=== PATIENT | female | born 1940 | race Caucasian/White ===

== ENCOUNTER 2017-09-26 21:29 | Emergency (ER) | payer MEDICARE ==
[2017-09-26] MEDS ORDERED: SODIUM CHLORIDE 0.9% 500 ML IV ONE (21:41)
[2017-09-26] MEDS ORDERED: ALPRAZolam 0.25 MG TAB PO STA ×2 (21:44→23:31)
--- NOTE | 2017-09-26 21:49 | ED ---
General Adult HPI - General Chief complaint: Psychiatric Symptoms Stated complaint: Anxiety Poss UTI Time Seen by Provider: 09/26/17 21:30 Source: EMS, RN notes reviewed Mode of arrival: EMS Limitations: altered mental status - History of Present Illness Initial comments: This is a 77-year-old female who was sent to us via EMS for anxiety and a UTI. Patient is unable to give any history because she is somewhat altered however we don't know what her baseline is. Patient denies any pain patient denies any discomfort patient does not know why she is here. She does seem extremely anxious however. Patient states she's not nauseated doesn't believe she's been having any diarrhea. Patient denies any recent injury. Family may be coming and will get some more history from them when they arrived. - Related Data Allergies Allergy/AdvReac Type Severity Reaction Status Date / Time lorazepam Allergy Unknown Verified 09/26/17 21:41 Review of Systems ROS Statement: Those systems with pertinent positive or pertinent negative responses have been documented in the HPI. ROS Other: All systems not noted in ROS Statement are negative. Past Medical History Past Medical History: GERD/Reflux Past Psychological History: Anxiety General Exam - General Exam Comments Initial Comments: GENERAL: Patient is well-developed and well-nourished. Patient is nontoxic and well- hydrated and is in mild distress. ENT: Neck is soft and supple. No significant lymphadenopathy is noted. Oropharynx is clear. Moist mucous membranes. Neck has full range of motion without eliciting any pain. EYES: The sclera were anicteric and conjunctiva were pink and moist. Extraocular movements were intact and pupils were equal round and reactive to light. Eyelids were unremarkable. PULMONARY: Unlabored respirations. Good breath sounds bilaterally. No audible rales rhonchi or wheezing was noted. CARDIOVASCULAR: There is a regular rate and rhythm without any murmurs gallops or rubs. ABDOMEN: Soft and nontender with normal bowel sounds. No palpable organomegaly was noted. There is no palpable pulsatile mass. SKIN: Skin is clear with no lesions or rashes and otherwise unremarkable. NEUROLOGIC: Patient is alert and oriented x3. Cranial nerves II through XII are grossly intact. Motor and sensory are also intact. Normal speech, volume and content. Symmetrical smile. MUSCULOSKELETAL: Normal extremities with adequate strength and full range of motion. No lower extremity swelling or edema. No calf tenderness. LYMPHATICS: No significant lymphadenopathy is noted PSYCHIATRIC: Patient is extremely nervous and she admits is much. Patient states she doesn' t know why she somewhat nervous Limitations: altered mental status Course Vital Signs 09/26/17 21:32 Pulse Rate 109 H Respiratory 36 H Rate Blood Pressure 134/72 O2 Sat by Pulse 92 L Oximetry Medical Decision Making - Medical Decision Making EKG shows sinus rhythm at 71 bpm NE interval 224 QRS is 80 QT interval 4:30 QTC is 467. Patient's EKG shows no ST segment elevation or depression or T wave abnormalities are noted. - Lab Data Result diagrams: 09/26/17 22:35 09/26/17 22:35 Lab Results 09/26/17 09/26/17 09/26/17 Range/Units 22:35 22:35 22:35 WBC 11.3 H (3.8-10.6) k/uL RBC 4.47 (3.80-5.40) m/uL Hgb 13.0 (11.4-16.0) gm/dL Hct 39.0 (34.0-46.0) % MCV 87.3 (80.0-100.0) fL MCH 29.0 (25.0-35.0) pg MCHC 33.2 (31.0-37.0) g/dL RDW 13.3 (11.5-15.5) % Plt Count 370 (150-450) k/uL Neutrophils % 70 % Lymphocytes % 21 % Monocytes % 5 % Eosinophils % 1 % Basophils % 0 % Neutrophils # 7.9 H (1.3-7.7) k/uL Lymphocytes # 2.4 (1.0-4.8) k/uL Monocytes # 0.6 (0-1.0) k/uL Eosinophils # 0.1 (0-0.7) k/uL Basophils # 0.1 (0-0.2) k/uL PT (9.0-12.0) sec INR (<1.2) APTT (22.0-30.0) sec Sodium 139 (137-145) mmol/L Potassium 4.7 (3.5-5.1) mmol/L Chloride 105 (98-107) mmol/L Carbon Dioxide 19 L (22-30) mmol/L Anion Gap 15 mmol/L BUN 23 H (7-17) mg/dL Creatinine 1.50 H (0.52-1.04) mg/dL Est GFR (CKD-EPI)AfAm 38 (>60 ml/min/1.73 sqM) Est GFR (CKD-EPI)NonAf 33 (>60 ml/min/1.73 sqM) Glucose 88 (74-99) mg/dL POC Glucose (mg/dL) (75-99) mg/dL POC Glu Operations Examiner ID Calcium 10.4 H (8.4-10.2) mg/dL Total Bilirubin 1.0 (0.2-1.3) mg/dL AST 30 (14-36) U/L ALT 32 (9-52) U/L Alkaline Phosphatase 108 (38-126) U/L Total Creatine Kinase 59 (30-135) U/L CK-MB (CK-2) 0.5 (0.0-2.4) ng/mL CK-MB (CK-2) Rel Index 0.8 Troponin I <0.012 (0.000-0.034) ng/mL Total Protein 7.5 (6.3-8.2) g/dL Albumin 4.6 (3.5-5.0) g/dL Urine Color Urine Appearance (Clear) Urine pH (5.0-8.0) Ur Specific [place] (1.001-1.035) Urine Protein (Negative) Urine Glucose (UA) (Negative) Urine Ketones (Negative) Urine Blood (Negative) Urine Nitrite (Negative) Urine Bilirubin (Negative) Urine Urobilinogen (<2.0) mg/dL Ur Leukocyte Esterase (Negative) 09/26/17 09/26/17 09/26/17 Range/Units 22:35 22:39 23:00 WBC (3.8-10.6) k/uL RBC (3.80-5.40) m/uL Hgb (11.4-16.0) gm/dL Hct (34.0-46.0) % MCV (80.0-100.0) fL MCH (25.0-35.0) pg MCHC (31.0-37.0) g/dL RDW (11.5-15.5) % Plt Count (150-450) k/uL Neutrophils % % Lymphocytes % % Monocytes % % Eosinophils % % Basophils % % Neutrophils # (1.3-7.7) k/uL Lymphocytes # (1.0-4.8) k/uL Monocytes # (0-1.0) k/uL Eosinophils # (0-0.7) k/uL Basophils # (0-0.2) k/uL PT 9.8 (9.0-12.0) sec INR 1.0 (<1.2) APTT 22.2 (22.0-30.0) sec Sodium (137-145) mmol/L Potassium (3.5-5.1) mmol/L Chloride (98-107) mmol/L Carbon Dioxide (22-30) mmol/L Anion Gap mmol/L BUN (7-17) mg/dL Creatinine (0.52-1.04) mg/dL Est GFR (CKD-EPI)AfAm (>60 ml/min/1.73 sqM) Est GFR (CKD-EPI)NonAf (>60 ml/min/1.73 sqM) Glucose (74-99) mg/dL POC Glucose (mg/dL) 101 H (75-99) mg/dL POC Glu Operations Examiner ID Whit Guan Calcium (8.4-10.2) mg/dL Total Bilirubin (0.2-1.3) mg/dL AST (14-36) U/L ALT (9-52) U/L Alkaline Phosphatase (38-126) U/L Total Creatine Kinase (30-135) U/L CK-MB (CK-2) (0.0-2.4) ng/mL CK-MB (CK-2) Rel Index Troponin I (0.000-0.034) ng/mL Total Protein (6.3-8.2) g/dL Albumin (3.5-5.0) g/dL Urine Color Yellow Urine Appearance Clear (Clear) Urine pH 8.0 (5.0-8.0) Ur Specific [place] 1.005 (1.001-1.035) Urine Protein Negative (Negative) Urine Glucose (UA) Negative (Negative) Urine Ketones 1+ H (Negative) Urine Blood Negative (Negative) Urine Nitrite Negative (Negative) Urine Bilirubin Negative (Negative) Urine Urobilinogen <2.0 (<2.0) mg/dL Ur Leukocyte Esterase Negative (Negative) Disposition Clinical Impression: Dementia Disposition: HOME SELF-CARE Condition: Good Instructions: Dementia (ED) Is patient prescribed a controlled substance at d/c from ED?: No Referrals: Adam Oakes MD [Primary Care Provider] - 1-2 days Time of Disposition: 23:30
[2017-09-26 22:46] LABS: Basophils # (A) 0.1 k/uL (0-0.2); Basophils % (A) 0 %; Eosinophils # (A) 0.1 k/uL (0-0.7); Eosinophils % (A) 1 %; Lymphocytes # (A) 2.4 k/uL (1.0-4.8); Lymphocytes % (A) 21 %; MCHC 33.2 g/dL (31.0-37.0); MCV 87.3 fL (80.0-100.0); Mean Platelet Volume 6.8; Monocytes # (A) 0.6 k/uL (0-1.0); Monocytes % (A) 5 %; Neutrophils # (A) 7.9 k/uL (1.3-7.7); Neutrophils % (A) 70 %; Platelet Count 370 k/uL (150-450); RBC 4.47 m/uL (3.80-5.40); RDW 13.3 % (11.5-15.5); WBC 11.3 k/uL (3.8-10.6)
[2017-09-26 22:49] LABS: Glucose,Whole Blood 101 mg/dL (75-99)
[2017-09-26 22:54] LABS: Partial Thromboplastin Time 22.2 sec (22.0-30.0); Prothrombin Time 9.8 sec (9.0-12.0)
[2017-09-26 23:01] LABS: Albumin 4.6 g/dL (3.5-5.0); Calcium 10.4 mg/dL (8.4-10.2); Potassium 4.7 mmol/L (3.5-5.1); Total Protein 7.5 g/dL (6.3-8.2)
[2017-09-26 23:04] LABS: Creatine Kinase 59 U/L (30-135)
[2017-09-26 23:17] LABS: Creatine Kinase MB 0.5 ng/mL (0.0-2.4); Troponin I <0.012 ng/mL (0.000-0.034)
[2017-09-26 23:20] LABS: Appearance,Urine Clear (Clear); Bilirubin,Urine Negative (Negative); Blood,Urine Negative (Negative); Color,Urine Yellow; Glucose,Urine (UA) Negative (Negative); Ketones,Urine 1+ (Negative); Leukocyte Esterase,Urine Negative (Negative); Nitrite,Urine Negative (Negative); Protein,Urine Negative (Negative); Specific Gravity,Urine 1.005 (1.001-1.035); Urobilinogen,Urine <2.0 mg/dL (<2.0)
[2017-09-26 23:41] VITALS: TEMP 97.3
[2017-09-27 00:24] VITALS: BP 157/65; PULSE 78; RESP 20
== END 2017-09-27 00:24 | disposition home or self-care (01) ==
LOC: EC 21:29
DX: F03.90 Unspecified dementia, unspecified severity, without behavioral disturbance, psychotic disturbance, mood disturbance, and anxiety (principal); F41.9 Anxiety disorder, unspecified; Z88.8 Allergy status to other drugs, medicaments and biological substances
CPT/HCPCS: 36415; 80053; 81003; 82550; 82553; 84484; 85025; 85610; 85730; 93005; 96360; 99284

== ENCOUNTER 2017-10-12 12:19 | Emergency (ER) | payer MEDICARE ==
[2017-10-12 12:34] VITALS: BP 141/63; PULSE 68; RESP 18; TEMP 97.4
[2017-10-12] MEDS ORDERED: SODIUM CHLORIDE 0.9% 1,000 ML IV ONE ×2 (12:45)
--- NOTE | 2017-10-12 12:58 | ED ---
Fall HPI - General Source: patient, RN notes reviewed, old records reviewed Mode of arrival: EMS <Claribel Palacios - Last Filed: 10/12/17 15:41> <Angus Hunt - Last Filed: 10/12/17 16:08> - General Chief Complaint: Fall Stated Complaint: Fall Time Seen by Provider: 10/12/17 12:21 - History of Present Illness Initial Comments: Patient is a 77-year-old female presents emergency department from [facility], where she was on the dementia unit. Apparently Patient was found on the ground crawling. Staff did not witness a specific fall. Patient is having severe dementia and unable to answer many questions. This time she denies any specific areas of pain. According to nursing reports they have been changing medications including her Seroquel and Ativan. Patient reports that she otherwise feels well. She does not relate that she's had her head. ( Claribel Palacios) - Related Data Allergies Allergy/AdvReac Type Severity Reaction Status Date / Time lorazepam Allergy Unknown Verified 09/26/17 21:41 Review of Systems ROS Other: All systems not noted in ROS Statement are negative. <Claribel Palacios - Last Filed: 10/12/17 15:41> ROS Other: All systems not noted in ROS Statement are negative. <Angus Hunt - Last Filed: 10/12/17 16:08> ROS Statement: Those systems with pertinent positive or pertinent negative responses have been documented in the HPI. Past Medical History Past Medical History: GERD/Reflux Past Surgical History: Cholecystectomy Past Psychological History: Anxiety Smoking Status: Never smoker Past Alcohol Use History: None Reported Past Drug Use History: None Reported <Claribel Palacios - Last Filed: 10/12/17 15:41> General Exam General appearance: alert, in no apparent distress Head exam: Present: atraumatic, normocephalic, normal inspection Eye exam: Present: normal appearance, PERRL, EOMI. Absent: scleral icterus, conjunctival injection, periorbital swelling ENT exam: Present: normal exam, mucous membranes moist Neck exam: Present: other (Patient was in a c-collar.). Absent: normal inspection, tenderness, meningismus, lymphadenopathy Respiratory exam: Present: normal lung sounds bilaterally. Absent: respiratory distress, wheezes, rales, rhonchi, stridor Cardiovascular Exam: Present: regular rate, normal rhythm, normal heart sounds. Absent: systolic murmur, diastolic murmur, rubs, gallop, clicks GI/Abdominal exam: Present: soft, normal bowel sounds. Absent: distended, tenderness, guarding, rebound, rigid Extremities exam: Present: normal inspection, full ROM, normal capillary refill. Absent: tenderness, pedal edema, joint swelling, calf tenderness Back exam: Present: normal inspection Neurological exam: Present: alert Psychiatric exam: Present: normal affect, normal mood Skin exam: Present: warm, dry, intact, normal color. Absent: rash <Claribel Palacios - Last Filed: 10/12/17 15:41> <Angus Hunt - Last Filed: 10/12/17 16:08> - General Exam Comments Initial Comments: 77-year-old female. Patient is confused. This patient's baseline. No acute distress. (Claribel Palacios) Vital Signs 10/12/17 12:28 Temperature 97.4 F L Pulse Rate 68 Respiratory 18 Rate Blood Pressure 141/63 O2 Sat by Pulse 94 L Oximetry Medical Decision Making - Lab Data Result diagrams: 10/12/17 13:05 10/12/17 13:05 - Radiology Data Radiology results: report reviewed <Claribel Palacios - Last Filed: 10/12/17 15:41> - Lab Data Result diagrams: 10/12/17 13:05 10/12/17 13:05 <Angus Hunt - Last Filed: 10/12/17 16:08> - Medical Decision Making 77-year-old female with history of dementia presents after a fall. The staff at her facility found her crawling on the ground. Did not was a fall. Patient is placed in a c-collar. CT brain and C-spine was reviewed and negative. She has no complaints of any extremity pains. Patient's labwork was reviewed and unremarkable. Creatinine does seem relatively elevated however compared to the patient's baseline to 2 weeks ago there is actually improved. Patient's urinalysis negative for infection. Patient is demented however mental status at this time is her baseline. She is able to ambulate without difficulty. Patient case also with Dr. Hunt. Will be transferred back to extended care facility with monitoring. (Claribel Palacios) Agree with clinical examination performed by physician financial sales assistant. It is a 77- year-old female who was sent in by [facility] staff for being found crawling on the ground. Vital signs upon arrival are within normal limits. Patient is pleasantly demented however answers questions appropriately. This appears to be patient's baseline. Examination is benign. No external signs of traumatic injury. Laboratory evaluation and imaging studies were reviewed by myself and found to be within normal limits. Patient does not appear dehydrated. Patient had no complaints upon reevaluation. She was ambulated with assistance to the restroom without difficulties. Patient medically cleared for discharge back to [facility] where she is provided assistance. (Angus Hunt) - Lab Data Lab Results 10/12/17 10/12/17 10/12/17 Range/Units 13:05 13:05 13:05 WBC 6.4 (3.8-10.6) k/uL RBC 4.18 (3.80-5.40) m/uL Hgb 12.2 (11.4-16.0) gm/dL Hct 37.1 (34.0-46.0) % MCV 88.7 (80.0-100.0) fL MCH 29.1 (25.0-35.0) pg MCHC 32.8 (31.0-37.0) g/dL RDW 13.3 (11.5-15.5) % Plt Count 295 (150-450) k/uL Neutrophils % 69 % Lymphocytes % 19 % Monocytes % 5 % Eosinophils % 5 % Basophils % 1 % Neutrophils # 4.4 (1.3-7.7) k/uL Lymphocytes # 1.2 (1.0-4.8) k/uL Monocytes # 0.3 (0-1.0) k/uL Eosinophils # 0.3 (0-0.7) k/uL Basophils # 0.1 (0-0.2) k/uL PT 9.8 (9.0-12.0) sec INR 1.0 (<1.2) APTT 21.2 L (22.0-30.0) sec Sodium 141 (137-145) mmol/L Potassium 4.3 (3.5-5.1) mmol/L Chloride 107 (98-107) mmol/L Carbon Dioxide 24 (22-30) mmol/L Anion Gap 10 mmol/L BUN 23 H (7-17) mg/dL Creatinine 1.27 H (0.52-1.04) mg/dL Est GFR (CKD-EPI)AfAm 47 (>60 ml/min/1.73 sqM) Est GFR (CKD-EPI)NonAf 40 (>60 ml/min/1.73 sqM) Glucose 92 (74-99) mg/dL Calcium 9.8 (8.4-10.2) mg/dL Total Bilirubin 0.7 (0.2-1.3) mg/dL AST 28 (14-36) U/L ALT 30 (9-52) U/L Alkaline Phosphatase 94 (38-126) U/L Troponin I (0.000-0.034) ng/mL Total Protein 6.6 (6.3-8.2) g/dL Albumin 3.9 (3.5-5.0) g/dL Urine Color Urine Appearance (Clear) Urine pH (5.0-8.0) Ur Specific [place] (1.001-1.035) Urine Protein (Negative) Urine Glucose (UA) (Negative) Urine Ketones (Negative) Urine Blood (Negative) Urine Nitrite (Negative) Urine Bilirubin (Negative) Urine Urobilinogen (<2.0) mg/dL Ur Leukocyte Esterase (Negative) Urine RBC (0-5) /hpf Urine WBC (0-5) /hpf Ur Squamous Epith Cells (0-4) /hpf Amorphous Sediment (None) /hpf Hyaline Casts (0-2) /lpf 10/12/17 10/12/17 Range/Units 13:05 14:15 WBC (3.8-10.6) k/uL RBC (3.80-5.40) m/uL Hgb (11.4-16.0) gm/dL Hct (34.0-46.0) % MCV (80.0-100.0) fL MCH (25.0-35.0) pg MCHC (31.0-37.0) g/dL RDW (11.5-15.5) % Plt Count (150-450) k/uL Neutrophils % % Lymphocytes % % Monocytes % % Eosinophils % % Basophils % % Neutrophils # (1.3-7.7) k/uL Lymphocytes # (1.0-4.8) k/uL Monocytes # (0-1.0) k/uL Eosinophils # (0-0.7) k/uL Basophils # (0-0.2) k/uL PT (9.0-12.0) sec INR (<1.2) APTT (22.0-30.0) sec Sodium (137-145) mmol/L Potassium (3.5-5.1) mmol/L Chloride (98-107) mmol/L Carbon Dioxide (22-30) mmol/L Anion Gap mmol/L BUN (7-17) mg/dL Creatinine (0.52-1.04) mg/dL Est GFR (CKD-EPI)AfAm (>60 ml/min/1.73 sqM) Est GFR (CKD-EPI)NonAf (>60 ml/min/1.73 sqM) Glucose (74-99) mg/dL Calcium (8.4-10.2) mg/dL Total Bilirubin (0.2-1.3) mg/dL AST (14-36) U/L ALT (9-52) U/L Alkaline Phosphatase (38-126) U/L Troponin I <0.012 (0.000-0.034) ng/mL Total Protein (6.3-8.2) g/dL Albumin (3.5-5.0) g/dL Urine Color Yellow Urine Appearance Clear (Clear) Urine pH 7.0 (5.0-8.0) Ur Specific [place] 1.006 (1.001-1.035) Urine Protein Negative (Negative) Urine Glucose (UA) Negative (Negative) Urine Ketones Trace H (Negative) Urine Blood Negative (Negative) Urine Nitrite Negative (Negative) Urine Bilirubin Negative (Negative) Urine Urobilinogen <2.0 (<2.0) mg/dL Ur Leukocyte Esterase Trace H (Negative) Urine RBC <1 (0-5) /hpf Urine WBC 2 (0-5) /hpf Ur Squamous Epith Cells 1 (0-4) /hpf Amorphous Sediment Rare H (None) /hpf Hyaline Casts 7 H (0-2) /lpf 10/12/17 14:02 EKG shows normal sinus rhythm left axis deviation. Anterior infarct injured from. Ventricular rate 62 bpm. MD intervals 04/15/2007 milliseconds. QRS duration 92 ms. QT QTc is 440/446 ms. (Claribel Palacios) - Radiology Data No acute fracture dislocation evident cervical spine. No acute intracranial hemorrhage, mass effect or midline shift seen. Acute fracture dislocation and pelvis. I asked arthritic changes of both hips osteopenia visible bony structures. Transitional lumbosacral segment. Borderline heart size of a juan pulmonary edema acute infiltrate or pneumothorax or other pleural effusion. (Claribel Palacios) Disposition Is patient prescribed a controlled substance at d/c from ED?: No When asked, does pt state using other controlled substances?: No If prescribed controlled substance>3 days was MAPS reviewed?: No If opioid is for acute pain is fill amount 7 days or less?: No If Rx opioid, was Start Talking consent form obtained?: No Time of Disposition: 15:43 <Claribel Palacios - Last Filed: 10/12/17 15:41> <Angus Hunt - Last Filed: 10/12/17 16:08> Clinical Impression: Fall, Dementia Disposition: HOME SELF-CARE Condition: Good Instructions: Fall Prevention for Older Adults (ED) Additional Instructions: Patient should be monitored. If she has any change in her baseline mental status return for further evaluation. Patient should rest, remain hydrated. There are any alarming signs or symptoms return to emergency department. Referrals: Adam Oakes MD [Primary Care Provider] - 1-2 days
[2017-10-12 13:26] LABS: Basophils # (A) 0.1 k/uL (0-0.2); Basophils % (A) 1 %; Eosinophils # (A) 0.3 k/uL (0-0.7); Eosinophils % (A) 5 %; HCT 37.1 % (34.0-46.0); HGB 12.2 gm/dL (11.4-16.0); Lymphocytes # (A) 1.2 k/uL (1.0-4.8); Lymphocytes % (A) 19 %; MCH 29.1 pg (25.0-35.0); MCHC 32.8 g/dL (31.0-37.0); MCV 88.7 fL (80.0-100.0); Mean Platelet Volume 6.4; Monocytes # (A) 0.3 k/uL (0-1.0); Monocytes % (A) 5 %; Neutrophils # (A) 4.4 k/uL (1.3-7.7); Neutrophils % (A) 69 %; Platelet Count 295 k/uL (150-450); RBC 4.18 m/uL (3.80-5.40); RDW 13.3 % (11.5-15.5); WBC 6.4 k/uL (3.8-10.6)
[2017-10-12 13:35] LABS: Albumin 3.9 g/dL (3.5-5.0); Calcium 9.8 mg/dL (8.4-10.2); Potassium 4.3 mmol/L (3.5-5.1); Total Bilirubin 0.7 mg/dL (0.2-1.3); Total Protein 6.6 g/dL (6.3-8.2)
[2017-10-12 13:41] LABS: Prothrombin Time 9.8 sec (9.0-12.0)
[2017-10-12 13:42] LABS: Partial Thromboplastin Time 21.2 sec (22.0-30.0)
--- NOTE | 2017-10-12 13:57 | CT ---
EXAMINATION TYPE: CT brain dana franklin con DATE OF EXAM: 10/12/2017 COMPARISON: NONE HISTORY: Fall CT DLP: 1815 mGycm Automated exposure control for dose reduction was used. TECHNIQUE: CT scan of the head and cervical spine are performed without contrast. FINDINGS: There is artifact which could obscure detail in the posterior fossa. There is no acute int racranial hemorrhage, mass effect, or midline shift identified. The ventricles and sulci are within normal limits in size. Periventricular white matter shows patchy low attenuation likely due to chroni c small vessel ischemia, there is likely age-related atrophy, cerebral vascular calcifications are pr esent. The globes are intact and the visualized sinuses are clear. Cervical spine is visualized in its entirety from C1 through upper thoracic levels and demonstrates s atisfactory alignment without evidence of acute fracture or dislocation. Prevertebral soft tissue ap pears within normal limits. 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 Ther e is multilevel spondylosis. Multilevel foraminal encroachment. Mild/moderate spinal stenosis. There is multilevel facet arthropathy. The C1-C2 articulation is unremarkable. IMPRESSION: 1. There is no acute fracture or dislocation evident in the cervical spine. 2. No acute intracranial hemorrhage, mass effect, or midline shift is seen.
[2017-10-12 14:32] LABS: Amorphous Sediment,Urine Rare /hpf; Appearance,Urine Clear (Clear); Bilirubin,Urine Negative (Negative); Blood,Urine Negative (Negative); Color,Urine Yellow; Glucose,Urine (UA) Negative (Negative); Hyaline Casts,Urine 7 /lpf (0-2); Ketones,Urine Trace (Negative); Leukocyte Esterase,Urine Trace (Negative); Nitrite,Urine Negative (Negative); Protein,Urine Negative (Negative); RBC,Urine <1 /hpf (0-5); Specific Gravity,Urine 1.006 (1.001-1.035); Squamous Epithelial Cell,Urine 1 /hpf (0-4); Urobilinogen,Urine <2.0 mg/dL (<2.0); WBC,Urine 2 /hpf (0-5)
--- NOTE | 2017-10-12 14:52 | XR ---
EXAMINATION TYPE: XR chest 2V DATE OF EXAM: 10/12/2017 COMPARISON: EXAMINATION TYPE: XR chest 2V DATE OF EXAM: 10/12/2017 CLINICAL HISTORY: Post fall TECHNIQUE: Frontal and lateral views of the chest are obtained. COMPARISON: None FINDINGS: There is no focal air space opacity, pleural effusion, or pneumothorax seen. The heart is borderline in size without evidence of vascular decompensation or pleural effusions. Tortuous thoraci c aorta. No pneumothorax. Scapulas are partially obscuring the upper lung wilkes. The osseous structu res are intact. IMPRESSION: Borderline size heart without evidence of juan pulmonary edema, acute infiltrate, pneumo thorax or significant pleural effusions.
--- NOTE | 2017-10-12 14:57 | XR ---
EXAMINATION TYPE: XR pelvis AP view DATE OF EXAM: 10/12/2017 CLINICAL HISTORY: Pain post fall TECHNIQUE: A single AP view of the pelvis is obtained. COMPARISON: None. FINDINGS: Mild osteopenia . There is no acute fracture/dislocation evident in the pelvis. The hip and sacroiliac joints appear symmetric with secondary osteophytic changes of both hips. The overlying soft tissue appears unrema rkable. Transitional lumbosacral . IMPRESSION: There is no acute fracture or dislocation in the pelvis. 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 Transitional lumbosacral segment.
== END 2017-10-12 17:09 | disposition home or self-care (01) ==
LOC: EC 12:19
DX: F03.90 Unspecified dementia, unspecified severity, without behavioral disturbance, psychotic disturbance, mood disturbance, and anxiety (principal); F41.9 Anxiety disorder, unspecified; Z88.8 Allergy status to other drugs, medicaments and biological substances; W19.XXXA Unspecified fall, initial encounter
CPT/HCPCS: 36415; 70450; 71046; 72125; 72170; 80053; 81001; 84484; 85025; 85610; 85730; 93005; 96360; 96361; 99285

== ENCOUNTER 2017-10-15 14:14 | Emergency (ER) | payer MEDICARE ==
--- NOTE | 2017-10-15 14:50 | ED ---
General Adult HPI <Benigno Capps - Last Filed: 10/16/17 11:42> - General Source: patient Mode of arrival: ambulatory Limitations: no limitations <Angus Hunt - Last Filed: 10/16/17 14:03> - General Chief complaint: Altered Mental Status Stated complaint: Agitation - History of Present Illness Initial comments: HPI Macro Chief Complaint: 77-year-old female brought in by EMS for aggressive behavior. History of Present Illness: 77-year-old female with past medical history of dementia presents with aggressive behavior. Patient is well-known to our emergency department for frequent visitations for similar complaints. Patient has advanced dementia. According to F staff patient has been increasingly aggressive over the past 2 weeks. They sent her here for the safety of herself and other residents in the facility. Patient has no complaints at this time however she is unreliable historian. Discussed patient case with Armando who is a nurse at the facility he reports that patient has been refusing medications. She is currently being worked up by psychiatry for aggressive behavior. She recently had increase in her Seroquel dose. Past Medical History: Anxiety, hyperlipidemia, vitamin D deficiency Past Surgical History:[reviewed, none to report] Social History: [denies alcohol, tobacco or illicit drug use] Family History: reviewed and noncontributory Patient unable to provide ROS secondary to mental status (Angus Hunt) - Related Data Home Medications Medication Instructions Recorded Confirmed ALPRAZolam [Xanax] 0.5 mg PO TID PRN 10/15/17 10/15/17 Acetaminophen [Tylenol Arthritis] 650 mg PO Q8HR PRN 10/15/17 10/15/17 Aspirin EC [Ecotrin Low Dose] 81 mg PO DAILY 10/15/17 10/15/17 Cholecalciferol [Vitamin D3] 1,000 unit PO DAILY 10/15/17 10/15/17 DULoxetine HCL [Cymbalta] 60 mg PO DAILY 10/15/17 10/15/17 Magnesium 200 mg PO DAILY 10/15/17 10/15/17 Nitrofurantoin Monohyd/M-Cryst 100 mg PO DAILY 10/15/17 10/15/17 [Macrobid] Omeprazole 20 mg PO DAILY 10/15/17 10/15/17 QUEtiapine FUMARATE 50 mg PO BID 10/15/17 10/15/17 Rosuvastatin [Crestor] 10 mg PO HS 10/15/17 10/15/17 Allergies Allergy/AdvReac Type Severity Reaction Status Date / Time lorazepam Allergy Unknown Verified 10/15/17 17:44 Review of Systems ROS Other: All systems not noted in ROS Statement are negative. <Benigno Capps - Last Filed: 10/16/17 11:42> ROS Other: All systems not noted in ROS Statement are negative. <Angus Hunt - Last Filed: 10/16/17 14:03> ROS Statement: Those systems with pertinent positive or pertinent negative responses have been documented in the HPI. Past Medical History Past Medical History: GERD/Reflux Past Surgical History: Cholecystectomy Past Psychological History: Anxiety Smoking Status: Never smoker Past Alcohol Use History: None Reported Past Drug Use History: None Reported <Angus Hunt - Last Filed: 10/16/17 14:03> General Exam <Benigno Capps - Last Filed: 10/16/17 11:42> Limitations: no limitations <Angus Hunt - Last Filed: 10/16/17 14:03> - General Exam Comments Initial Comments: Vitals: Signs upon arrival are within acceptable limits PHYSICAL EXAM: General Impression: Alert and oriented 1/3, no acute distress HEENT: Normocephalic atraumatic, extra-ocular movements intact, pupils equal and reactive to light bilaterally, mucous membranes moist. Cardiovascular: Heart regular rate and rhythm, S1&S2 audible, no murmurs, rubs or gallops Chest: Lungs clear to auscultation bilaterally, no rhonchi, no wheeze, no rales Abdomen: Bowel sounds present, abdomen soft, non-tender, non-distended, no organomegaly Musculoskeletal: Pulses present and equal in all extremities, no peripheral edema Motor: Power 5/5 bilaterally, no focal deficits noted Neurological: CN II-XII grossly intact, no focal motor or sensory deficits noted Skin: Intact with no visualized rashes Psych: Normal affect and mood (Angus Hunt) Course <Benigno Capps - Last Filed: 10/16/17 11:42> <Angus Hunt - Last Filed: 10/16/17 14:03> Vital Signs 10/15/17 10/15/17 10/15/17 14:34 16:17 19:25 Temperature 98.6 F 98.2 F 98.7 F Pulse Rate 86 81 80 Respiratory 16 16 16 Rate Blood Pressure 135/71 132/78 132/62 O2 Sat by Pulse 97 98 98 Oximetry 10/15/17 10/16/17 10/16/17 23:15 01:00 02:00 Temperature 98.6 F Pulse Rate 82 Respiratory 16 16 15 Rate Blood Pressure 136/78 O2 Sat by Pulse 98 Oximetry 10/16/17 04:00 Temperature 97.5 F L Pulse Rate 69 Respiratory 16 Rate Blood Pressure 140/63 O2 Sat by Pulse 99 Oximetry - Reevaluation(s) Reevaluation #1: 10/16/17 11:42 The patient rested comfortably throughout the evening and hay buckler. She will be transferred to [facility] for geriatric psychiatric treatment. I did fill out the transfer forms. (Benigno Capps) Medical Decision Making - Lab Data Result diagrams: 10/15/17 15:25 10/15/17 15:25 <Benigno Capps - Last Filed: 10/16/17 11:42> - Lab Data Result diagrams: 10/15/17 15:25 10/15/17 15:25 <Angus Hunt - Last Filed: 10/16/17 14:03> - Medical Decision Making ED course: 77-year-old female with past medical history of advanced dementia presents via EMS from [facility] for aggressive behavior. She was sent over here for danger to herself and other residents.Patient was seen on the of last and on the first of this month. She was seen by myself 3 days ago and was discharge back to [facility]. Imaging and labs from 3 days ago showing no acute processes. Patient had basic labs and urine which did not reveal any abnormalities.Laboratory evaluation obtained. CBC is unremarkable. Cumbersome metabolic panel shows mild elevation of renal markers which is Adderall her baseline. Urinalysis shows findings that may suggest mild urinary tract infection. It is unclear whether patient is having urinary symptoms. Rapid urine drug screen obtained showing TCAs and benzodiazepines. Given Macrobid. Given degree of aggressive behavior EPS was consult it. Patient is to be transferred to geriatric psychiatric facility for aggressive behavior. Patient is a harm to herself and other members of the care facility from where she came from. I believe is not safe for patient to be discharge back to her care facility. Urinalysis is mildly positive for urinary tract infection. Urine culture sent. Patient started on antibiotics. I do not believe patient's symptoms secondary to urinary tract infection given mild degree of white blood cells in the urine. Patient medically cleared and awaiting transfer to geriatric psychiatric facility. Patient here to be signed out to oncoming physician pending transfer to Final impression: 1. Leukouria, 2. Aggressive behavior Final disposition: Pending transfer to psych facility (Angus Hunt) - Lab Data Lab Results 10/15/17 10/15/17 10/15/17 Range/Units 15:25 15:25 15:25 WBC 6.9 (3.8-10.6) k/uL RBC 4.02 (3.80-5.40) m/uL Hgb 11.4 (11.4-16.0) gm/dL Hct 35.5 (34.0-46.0) % MCV 88.2 (80.0-100.0) fL MCH 28.5 (25.0-35.0) pg MCHC 32.3 (31.0-37.0) g/dL RDW 13.5 (11.5-15.5) % Plt Count 266 (150-450) k/uL Neutrophils % 73 % Lymphocytes % 18 % Monocytes % 5 % Eosinophils % 3 % Basophils % 0 % Neutrophils # 5.0 (1.3-7.7) k/uL Lymphocytes # 1.2 (1.0-4.8) k/uL Monocytes # 0.4 (0-1.0) k/uL Eosinophils # 0.2 (0-0.7) k/uL Basophils # 0.0 (0-0.2) k/uL Sodium 144 (137-145) mmol/L Potassium 4.2 (3.5-5.1) mmol/L Chloride 106 (98-107) mmol/L Carbon Dioxide 28 (22-30) mmol/L Anion Gap 10 mmol/L BUN 21 H (7-17) mg/dL Creatinine 1.30 H (0.52-1.04) mg/dL Est GFR (CKD-EPI)AfAm 45 (>60 ml/min/1.73 sqM) Est GFR (CKD-EPI)NonAf 39 (>60 ml/min/1.73 sqM) Glucose 101 H (74-99) mg/dL Calcium 9.9 (8.4-10.2) mg/dL Magnesium 2.4 H (1.6-2.3) mg/dL Total Bilirubin 0.6 (0.2-1.3) mg/dL AST 26 (14-36) U/L ALT 28 (9-52) U/L Alkaline Phosphatase 83 (38-126) U/L Total Protein 6.5 (6.3-8.2) g/dL Albumin 3.9 (3.5-5.0) g/dL Urine Color Red Urine Appearance Clear (Clear) Urine pH 5.5 (5.0-8.0) Ur Specific [place] 1.022 (1.001-1.035) Urine Protein Trace H (Negative) Urine Glucose (UA) Negative (Negative) Urine Ketones Trace H (Negative) Urine Blood Negative (Negative) Urine Nitrite Negative (Negative) Urine Bilirubin Negative (Negative) Urine Urobilinogen 2.0 (<2.0) mg/dL Ur Leukocyte Esterase Moderate H (Negative) Urine RBC 1 (0-5) /hpf Urine WBC 9 H (0-5) /hpf Ur Squamous Epith Cells 2 (0-4) /hpf Urine Bacteria Rare H (None) /hpf Hyaline Casts 28 H (0-2) /lpf Urine Mucus Moderate H (None) /hpf Urine Opiates Screen (NotDetected) Ur Oxycodone Screen (NotDetected) Urine Methadone Screen (NotDetected) Ur Propoxyphene Screen (NotDetected) Ur Barbiturates Screen (NotDetected) U Tricyclic Antidepress (NotDetected) Ur Phencyclidine Scrn (NotDetected) Ur Amphetamines Screen (NotDetected) U Methamphetamines Scrn (NotDetected) U Benzodiazepines Scrn (NotDetected) Urine Cocaine Screen (NotDetected) U Marijuana (THC) Screen (NotDetected) 10/15/17 Range/Units 15:25 WBC (3.8-10.6) k/uL RBC (3.80-5.40) m/uL Hgb (11.4-16.0) gm/dL Hct (34.0-46.0) % MCV (80.0-100.0) fL MCH (25.0-35.0) pg MCHC (31.0-37.0) g/dL RDW (11.5-15.5) % Plt Count (150-450) k/uL Neutrophils % % Lymphocytes % % Monocytes % % Eosinophils % % Basophils % % Neutrophils # (1.3-7.7) k/uL Lymphocytes # (1.0-4.8) k/uL Monocytes # (0-1.0) k/uL Eosinophils # (0-0.7) k/uL Basophils # (0-0.2) k/uL Sodium (137-145) mmol/L Potassium (3.5-5.1) mmol/L Chloride (98-107) mmol/L Carbon Dioxide (22-30) mmol/L Anion Gap mmol/L BUN (7-17) mg/dL Creatinine (0.52-1.04) mg/dL Est GFR (CKD-EPI)AfAm (>60 ml/min/1.73 sqM) Est GFR (CKD-EPI)NonAf (>60 ml/min/1.73 sqM) Glucose (74-99) mg/dL Calcium (8.4-10.2) mg/dL Magnesium (1.6-2.3) mg/dL Total Bilirubin (0.2-1.3) mg/dL AST (14-36) U/L ALT (9-52) U/L Alkaline Phosphatase (38-126) U/L Total Protein (6.3-8.2) g/dL Albumin (3.5-5.0) g/dL Urine Color Urine Appearance (Clear) Urine pH (5.0-8.0) Ur Specific [place] (1.001-1.035) Urine Protein (Negative) Urine Glucose (UA) (Negative) Urine Ketones (Negative) Urine Blood (Negative) Urine Nitrite (Negative) Urine Bilirubin (Negative) Urine Urobilinogen (<2.0) mg/dL Ur Leukocyte Esterase (Negative) Urine RBC (0-5) /hpf Urine WBC (0-5) /hpf Ur Squamous Epith Cells (0-4) /hpf Urine Bacteria (None) /hpf Hyaline Casts (0-2) /lpf Urine Mucus (None) /hpf Urine Opiates Screen Not Detected (NotDetected) Ur Oxycodone Screen Not Detected (NotDetected) Urine Methadone Screen Not Detected (NotDetected) Ur Propoxyphene Screen Not Detected (NotDetected) Ur Barbiturates Screen Not Detected (NotDetected) U Tricyclic Antidepress Detected H (NotDetected) Ur Phencyclidine Scrn Not Detected (NotDetected) Ur Amphetamines Screen Not Detected (NotDetected) U Methamphetamines Scrn Not Detected (NotDetected) U Benzodiazepines Scrn Detected H (NotDetected) Urine Cocaine Screen Not Detected (NotDetected) U Marijuana (THC) Screen Not Detected (NotDetected) Disposition Is patient prescribed a controlled substance at d/c from ED?: No <Benigno Capps - Last Filed: 10/16/17 11:42> <Angus Hunt - Last Filed: 10/16/17 14:03> Clinical Impression: Dementia, Agitation, Delirium due to general medical condition Disposition: TRANSFER TO PSYCH HOSP/UNIT Condition: Fair Referrals: Adam Oakes MD [Primary Care Provider] - 1-2 days
[2017-10-15 15:42] LABS: Basophils % (A) 0 %; Eosinophils # (A) 0.2 k/uL (0-0.7); Eosinophils % (A) 3 %; HCT 35.5 % (34.0-46.0); HGB 11.4 gm/dL (11.4-16.0); Lymphocytes # (A) 1.2 k/uL (1.0-4.8); Lymphocytes % (A) 18 %; MCH 28.5 pg (25.0-35.0); MCHC 32.3 g/dL (31.0-37.0); MCV 88.2 fL (80.0-100.0); Mean Platelet Volume 6.6; Monocytes # (A) 0.4 k/uL (0-1.0); Monocytes % (A) 5 %; Neutrophils % (A) 73 %; Platelet Count 266 k/uL (150-450); RBC 4.02 m/uL (3.80-5.40); RDW 13.5 % (11.5-15.5); WBC 6.9 k/uL (3.8-10.6)
[2017-10-15 15:47] LABS: Appearance,Urine Clear (Clear); Bacteria,Urine Rare /hpf; Bilirubin,Urine Negative (Negative); Blood,Urine Negative (Negative); Color,Urine Red; Glucose,Urine (UA) Negative (Negative); Hyaline Casts,Urine 28 /lpf (0-2); Ketones,Urine Trace (Negative); Leukocyte Esterase,Urine Moderate (Negative); Mucus,Urine Moderate /hpf; Nitrite,Urine Negative (Negative); PH, Urine 5.5 (5.0-8.0); Protein,Urine Trace (Negative); RBC,Urine 1 /hpf (0-5); Specific Gravity,Urine 1.022 (1.001-1.035); Squamous Epithelial Cell,Urine 2 /hpf (0-4); WBC,Urine 9 /hpf (0-5)
[2017-10-15 15:53] LABS: Albumin 3.9 g/dL (3.5-5.0); Calcium 9.9 mg/dL (8.4-10.2); Magnesium 2.4 mg/dL (1.6-2.3); Potassium 4.2 mmol/L (3.5-5.1); Total Bilirubin 0.6 mg/dL (0.2-1.3); Total Protein 6.5 g/dL (6.3-8.2)
[2017-10-15] MEDS ORDERED: cefTRIAXone IN SWFI 1,000 MG/10 ML SYRINGE IVP STA (16:13)
[2017-10-15] MEDS ORDERED: NITROFURANTOIN MONOHYD/M-CRYST 100 MG CAP PO STA (16:35)
[2017-10-15 16:44] LABS: Amphetamine Screen,Urine Not Detected (NotDetected); Barbiturate Screen,Urine Not Detected (NotDetected); Benzodiazepines Screen,Urine Detected (NotDetected); Cocaine Screen,Urine Not Detected (NotDetected); Methadone Screen, Urine Not Detected (NotDetected); Opiate Screen,Urine Not Detected (NotDetected); Oxycodone Screen, Urine Not Detected (NotDetected); Phencyclidine Screen,Urine Not Detected (NotDetected); Tricyclic Antidepressant,Urine Detected (NotDetected); Urn Cannabinoid Scrn Not Detected (NotDetected)
[2017-10-15] MEDS ORDERED: ALPRAZolam 0.5 MG TAB PO STA (19:20)
[2017-10-15] MEDS ORDERED: ALPRAZolam 0.5 MG TAB PO PRN (22:31)
[2017-10-15] MEDS ORDERED: ATORVASTATIN 10 MG TAB PO SCH (22:45)
[2017-10-16] MEDS: DULoxetine HCL 60 MG CAPSULE.DR PO SCH ×2 (04:02→09:33)
[2017-10-16] MEDS: QUEtiapine 50 MG TAB PO SCH ×2 (04:02→09:32)
[2017-10-16 04:06] VITALS: BP 140/63; PULSE 69; RESP 16; TEMP 97.5
[2017-10-16] MEDS ORDERED: ASPIRIN 81 MG PO SCH (09:00)
== END 2017-10-16 12:48 ==
LOC: EC 14:14
DX: F03.91 Unspecified dementia, unspecified severity, with behavioral disturbance (principal); F05 Delirium due to known physiological condition; N39.0 Urinary tract infection, site not specified; R82.5 Elevated urine levels of drugs, medicaments and biological substances; R82.99 Other abnormal findings in urine; E78.5 Hyperlipidemia, unspecified; K21.9 Gastro-esophageal reflux disease without esophagitis; E55.9 Vitamin D deficiency, unspecified; F41.9 Anxiety disorder, unspecified; Z79.82 Long term (current) use of aspirin; Z79.899 Other long term (current) drug therapy; Z88.8 Allergy status to other drugs, medicaments and biological substances; Z53.8 Procedure and treatment not carried out for other reasons
CPT/HCPCS: 36415; 80053; 80306; 81001; 83735; 85025; 87086; 99285

== ENCOUNTER 2017-12-12 13:07 | Inpatient (IN) | payer MEDICARE ==
[2017-12-12] MEDS ORDERED: HALOPERIDOL LACTATE 5 MG/ML 1 ML VIAL IM STA (13:19)
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
[2017-12-12 14:01] LABS: Basophils # (A) 0.1 k/uL (0-0.2); Basophils % (A) 1 %; Eosinophils # (A) 0.1 k/uL (0-0.7); Eosinophils % (A) 1 %; HCT 38.7 % (34.0-46.0); HGB 12.4 gm/dL (11.4-16.0); Lymphocytes # (A) 1.8 k/uL (1.0-4.8); Lymphocytes % (A) 21 %; MCH 28.4 pg (25.0-35.0); MCHC 32.1 g/dL (31.0-37.0); MCV 88.3 fL (80.0-100.0); Mean Platelet Volume 6.5; Monocytes # (A) 0.3 k/uL (0-1.0); Monocytes % (A) 4 %; Neutrophils # (A) 6.3 k/uL (1.3-7.7); Neutrophils % (A) 72 %; Platelet Count 354 k/uL (150-450); RBC 4.38 m/uL (3.80-5.40); RDW 13.9 % (11.5-15.5); WBC 8.7 k/uL (3.8-10.6)
[2017-12-12 14:13] LABS: ALT 24 U/L (9-52); AST 28 U/L (14-36); Acetaminophen <10.0 ug/mL; Albumin 4.4 g/dL (3.5-5.0); Alcohol <10 mg/dL; Alkaline Phosphatase 109 U/L (38-126); Anion Gap 15 mmol/L; Blood Urea Nitrogen 30 mg/dL (7-17); Calcium 10.1 mg/dL (8.4-10.2); Carbon Dioxide 16 mmol/L (22-30); Chloride 108 mmol/L (98-107); Glucose 99 mg/dL (74-99); Magnesium 1.9 mg/dL (1.6-2.3); Potassium 3.8 mmol/L (3.5-5.1); Salicylate <1.0 mg/dL; Sodium 139 mmol/L (137-145); Total Bilirubin 0.7 mg/dL (0.2-1.3); Total Protein 7.7 g/dL (6.3-8.2)
[2017-12-12] MEDS ORDERED: diphenhydrAMINE 50 MG/ML 1 ML VIAL IM STA (14:25)
[2017-12-12] MEDS ORDERED: ZIPRASIDONE 20 MG VIAL IM STA (14:25)
[2017-12-12 14:40] LABS: Appearance,Urine Clear (Clear); Bilirubin,Urine Negative (Negative); Blood,Urine Negative (Negative); Color,Urine Yellow; Glucose,Urine (UA) Negative (Negative); Hyaline Casts,Urine 13 /lpf (0-2); Ketones,Urine Trace (Negative); Leukocyte Esterase,Urine Moderate (Negative); Mucus,Urine Rare /hpf; Nitrite,Urine Negative (Negative); PH, Urine 5.5 (5.0-8.0); Protein,Urine Trace (Negative); RBC,Urine 1 /hpf (0-5); Specific Gravity,Urine 1.013 (1.001-1.035); Squamous Epithelial Cell,Urine 1 /hpf (0-4); Urobilinogen,Urine <2.0 mg/dL (<2.0); WBC,Urine 13 /hpf (0-5)
[2017-12-12 14:50] LABS: Amphetamine Screen,Urine Not Detected (NotDetected); Barbiturate Screen,Urine Not Detected (NotDetected); Benzodiazepines Screen,Urine Not Detected (NotDetected); Cocaine Screen,Urine Not Detected (NotDetected); Methadone Screen, Urine Not Detected (NotDetected); Opiate Screen,Urine Not Detected (NotDetected); Oxycodone Screen, Urine Not Detected (NotDetected); Phencyclidine Screen,Urine Not Detected (NotDetected); Tricyclic Antidepressant,Urine Detected (NotDetected); Urn Cannabinoid Scrn Not Detected (NotDetected)
[2017-12-12] MEDS ORDERED: cefTRIAXone IN SWFI 1,000 MG/10 ML SYRINGE IVP STA (14:52)
[2017-12-12] MEDS ORDERED: NALOXONE 0.4 MG/ML 1 ML VIAL IV PRN (16:54)
[2017-12-12] MEDS: QUEtiapine 25 MG TAB PO SCH (20:04)
[2017-12-12] MEDS: busPIRone HCl 10 MG TAB PO SCH (20:04)
[2017-12-12] MEDS: SERTRALINE 100 MG TAB PO SCH (20:04)
[2017-12-12] MEDS: MINERAL OIL-WHITE PETROLATUM 120 GM JAR TOPICAL SCH ×2 (20:05→22:35)
[2017-12-12] MEDS: MEMANTINE 5 MG TAB PO SCH (20:05)
[2017-12-12] MEDS: SENNOSIDES 8.6 MG TAB PO SCH (20:05)
[2017-12-12] MEDS: 1: MVI, ADULT NO.4 WITH VIT K 10 ML, THIAMINE 100 MG, FOLIC ACID 1 MG, POTASSIUM CHLORID IV SCH ×5 (23:20)
[2017-12-12] MEDS ORDERED: ACETAMINOPHEN TAB 500 MG TAB PO PRN (23:26)
[2017-12-13 00:15] LABS: INR 1.1 (<1.2); Prothrombin Time 10.5 sec (9.0-12.0)
[2017-12-13] MEDS: HALOPERIDOL LACTATE 5 MG/ML 1 ML VIAL IM PRN ×4 (07:18→22:44)
--- NOTE | 2017-12-13 08:03 | HP ---
HISTORY AND PHYSICAL DATE OF SERVICE: 12/12/2017 CHIEF COMPLAINT: Change in mental status. HISTORY OF PRESENT ILLNESS: This 77-year-old woman with a past medical history of multiple medical problems including dementia, GERD, hyperlipidemia, history of memory impairment, being followed by Dr. Conn in the outpatient setting, apparently became agitated at [facility]. The patient is confused, disoriented and the patient was taken to [place]. The patient was found to have renal failure and as well as UTI. Patient was admitted to the hospital for further evaluation and treatment. Currently, the patient unable to give a coherent history. Most of the history taken from my discussion with staff and review of the chart at this time. PAST MEDICAL HISTORY: Past medical history of dementia, GERD, hyperlipidemia, history of bladder surgery, breast surgery, anxiety, depression. MEDICATIONS: Home medications are: 1. BuSpar 10 mg p.o. b.i.d. 2. Zoloft 100 mg q.h.s. 3. Senna 17.2 mg q.h.s. 4. Seroquel XR 150 mg q.h.s. 5. Omeprazole 20 mg p.o. daily. 6. Namenda 5 mg q.h.s. 7. Magnesium oxide 200 mg p.o. daily. 8. Eucerin 1 application q.i.d. 9. Vitamin D3 1000 daily. 10.Aspirin 81 mg p.o. daily. ALLERGIES: LORAZEPAM. FAMILY HISTORY: from old age. SOCIAL HISTORY: No history of smoking. No history of alcohol intake. REVIEW OF SYSTEMS: Review of systems could not be taken at length because of the patient's change in mental status. PHYSICAL EXAM: GENERAL: Patient is conscious, confused. VITAL SIGNS: Pulse 70, blood pressure 140/60, respirations 17, temperature 97.8, pulse ox 98 percent on room air. HEENT: Conjunctivae normal. Oral mucosa moist. NECK: No jugular venous distention. No carotid bruit. No lymph node enlargement. CARDIOVASCULAR systems: S1, S2 muffled. No rhonchi. No crackles. RESPIRATION: Breath sounds diminished in the bases. No rhonchi. No crackles. ABDOMEN: Soft, nontender. No mass palpable. LEGS: No edema. No swelling. NERVOUS SYSTEM: Higher functions as mentioned earlier. Moves all four limbs. Mild diffuse weakness. Lymphatics: No lymph nodes palpable in the neck, axillae or groin. Skin: No ulcer, rashes or bleeding. LAB STUDIES: At this time shows WBC 8.2, hemoglobin 12.4, sodium 130, potassium 3.8, CO2 16, creatinine 1.90. UA noted. Other labs are noted. ASSESSMENT: 1. Urinary tract infection with sepsis possibly present on admission. 2. Change in mental status acute metabolic encephalopathy secondary to sepsis. 3. Acute renal failure possibly prerenal, acute tubular necrosis secondary to dehydration. 4. Dementia. 5. Gastroesophageal reflux disease. 6. Hyperlipidemia. 7. History of memory impairment. 8. History of bladder surgery. 9. History of cholecystectomy. 10.History of cataracts. 11.History of anxiety/depression. 12.NO CODE, NO CPR, NO VENT. RECOMMENDATIONS AND DISCUSSION: In this 77-year-old woman who presented with multiple complex medical issues, we will monitor the patient closely, continue the current medications, management and symptomatic treatment. I would recommend blood and urine cultures and IV antibiotics. We will continue the rest of medications. DVT prophylaxis. I would also recommend symptomatic treatment and psychiatry and Neurology also will be consulted. Other than that, home medications will be continued. Prognosis guarded because of multiple complex medical issues. I would also recommend PT/OT evaluation and social service consultation for the discharge evaluation also. If the patient is regaining the previous functional status, the patient may be able to go back to the current living situation. Otherwise, alternative arrangements has to be made. Overall prognosis guarded. Further recommendations to follow. MMODL / IJN: [id number] /
[2017-12-13] MEDS: MAGNESIUM OXIDE 400 MG TAB PO SCH (09:15)
[2017-12-13] MEDS: ASPIRIN 81 MG PO SCH (09:15)
[2017-12-13] MEDS: CHOLECALCIFEROL 1,000 UNIT TAB PO SCH (09:15)
[2017-12-13] MEDS: PANTOPRAZOLE 40 MG TABLET PO SCH (09:15)
[2017-12-13] MEDS: QUEtiapine 25 MG TAB PO SCH ×2 (09:15→22:10)
[2017-12-13] MEDS: busPIRone HCl 10 MG TAB PO SCH ×2 (09:15→22:09)
[2017-12-13] MEDS: MINERAL OIL-WHITE PETROLATUM 120 GM JAR TOPICAL SCH ×4 (09:16→22:22)
[2017-12-13] MEDS: cefTRIAXone IN SWFI 1,000 MG/10 ML SYRINGE IVP SCH (09:16)
[2017-12-13] MEDS: HEPARIN SODIUM,PORCINE 5,000 UNIT/ML 1 ML VIAL SQ SCH ×2 (09:16→22:11)
[2017-12-13 11:34] LABS: Basophils % (A) 0 %; Eosinophils % (A) 0 %; HCT 36.6 % (34.0-46.0); HGB 11.7 gm/dL (11.4-16.0); Lymphocytes % (A) 12 %; MCH 28.5 pg (25.0-35.0); MCV 89.2 fL (80.0-100.0); Mean Platelet Volume 6.4; Monocytes # (A) 0.4 k/uL (0-1.0); Monocytes % (A) 4 %; Neutrophils # (A) 7.1 k/uL (1.3-7.7); Neutrophils % (A) 83 %; Platelet Count 291 k/uL (150-450); RBC 4.11 m/uL (3.80-5.40); WBC 8.6 k/uL (3.8-10.6)
[2017-12-13 11:40] LABS: Calcium 9.5 mg/dL (8.4-10.2); Potassium 3.9 mmol/L (3.5-5.1)
[2017-12-13] MEDS: 1: MVI, ADULT NO.4 WITH VIT K 10 ML, THIAMINE 100 MG, FOLIC ACID 1 MG, POTASSIUM CHLORID IV SCH ×5 (12:31)
--- NOTE | 2017-12-13 12:40 | P.CONS ---
History of Present Illness - Reason for Consult Consult date: 12/13/17 Altered mental status - Chief Complaint Altered mental status - History of Present Illness 77-year-old female being evaluated by the neurology service for altered mental status and aggression. He is a resident of [facility] assisted [facility] and was noticed to become agitated and disoriented. Having a medical history of Alzheimer's dementia. His brought to the [facility] emergency room and found to have some renal failure as well as urinary tract infection. She has exhibited no focal neurological deficits. At this time my exam she is struggling with staff at bedside and in no acute distress physically. Review of Systems Constitutional: Reports as per HPI Past Medical History Past Medical History: Dementia, GERD/Reflux, Hyperlipidemia, Memory Impairment Additional Past Medical History / Comment(s): pt is a poor historian,info came from pt's daughter/dpuyen russell. past fall, anxiety, constipation, uti's some incon of urine History of Any Multi-Drug Resistant Organisms: None Reported Past Surgical History: Bladder Surgery, Breast Surgery, Cholecystectomy, Hysterectomy Additional Past Surgical History / Comment(s): cataracts, brest reduction,tummy tuck,baldder supsension Past Anesthesia/Blood Transfusion Reactions: Previous Problems w/ Anesthesia Additional Past Anesthesia/Blood Transfusion Reaction / Comm: difficult time waking after sx and low heart rate Smoking Status: Never smoker - Past Family History Father Family Medical History: No Reported History Additional Family Medical History / Comment(s): from old age Mother Family Medical History: Cancer Additional Family Medical History / Comment(s): lung cancer Medications and Allergies Home Medications Medication Instructions Recorded Confirmed Type Cholecalciferol [Vitamin D3] 1,000 unit PO DAILY@159910/15/17 12/12/17 History Omeprazole 20 mg PO DAILY 10/15/17 12/12/17 History Aspirin 81 mg PO DAILY@159912/12/17 12/12/17 History Eucerin Cream 1 applic TOPICAL QID 12/12/17 12/12/17 History Magnesium Oxide [Mag-Ox] 200 mg PO DAILY@159912/12/17 12/12/17 History Memantine [Namenda] 5 mg PO HS 12/12/17 12/12/17 History QUEtiapine FUMARATE [SEROquel XR] 150 mg PO HS 12/12/17 12/12/17 History Sennosides [Senna] 17.2 mg PO HS 12/12/17 12/12/17 History Sertraline [Zoloft] 100 mg PO HS 12/12/17 12/12/17 History busPIRone HCl [Buspar] 10 mg PO BID 12/12/17 12/12/17 History Allergies Allergy/AdvReac Type Severity Reaction Status Date / Time lorazepam Allergy Unknown Verified 12/12/17 13:22 Physical Exam Vitals: Vital Signs Temp Pulse Pulse Resp BP BP Pulse Ox 12/13/17 08:30 97.7 F 111 H 18 165/68 95 12/13/17 08:08 18 12/12/17 17:58 76 17 138/63 96 12/12/17 13:15 97.8 F 94 18 156/75 99 Intake and Output 12/12/17 12/13/17 12/13/17 22:59 06:59 14:59 Other: Voiding Method Incontinent # Voids 0 3 # Bowel Movements 0 Weight 79.379 kg - Constitutional General appearance: average body habitus, no cooperative, no acute distress - EENT Eyes: no abnormal pupil, PERRLA, no ptosis ENT: hearing grossly normal - Neck Neck: normal ROM, no rigidity - Respiratory Respiratory: negative: prolonged expiration, prolonged inspiration - Cardiovascular Rhythm: regular - Gastrointestinal General gastrointestinal: no distended - Neurologic Patient is alert and awake orientation cannot be ascertained as her answer to every question is "it's not of your business". In that regard, speech and language are normal no facial asymmetry. There is no lateralizing weakness. Tremors or seizure-like activities are seen. Results CBC & Chem 7: 12/13/17 11:13 12/13/17 11:13 Labs: Abnormal Lab Results - Last 24 Hours (Table) 12/12/17 12/12/17 12/13/17 Range/Units 13:47 14:23 11:13 Chloride 108 H 112 H (98-107) mmol/L Carbon Dioxide 16 L 17 L (22-30) mmol/L BUN 30 H 22 H (7-17) mg/dL Creatinine 1.90 H 1.50 H (0.52-1.04) mg/dL Glucose 111 H (74-99) mg/dL Urine Protein Trace H (Negative) Urine Ketones Trace H (Negative) Ur Leukocyte Esterase Moderate H (Negative) Urine WBC 13 H (0-5) /hpf Hyaline Casts 13 H (0-2) /lpf Urine Mucus Rare H (None) /hpf U Tricyclic Antidepress Detected H (NotDetected) Microbiology - Last 24 Hours (Table) 12/12/17 14:23 Urine Culture - Preliminary Urine,Clean Catch Assessment and Plan (1) Dementia Current Visit: Yes Status: Chronic Code(s): F03.90 - UNSPECIFIED DEMENTIA WITHOUT BEHAVIORAL DISTURBANCE SNOMED Code(s): 45518089 (2) Aggressive behavior Current Visit: Yes Status: Acute Code(s): R46.89 - OTHER SYMPTOMS AND SIGNS INVOLVING APPEARANCE AND BEHAVIOR SNOMED Code(s): 99102343 (3) Encephalopathy Current Visit: Yes Status: Suspected Code(s): G93.40 - ENCEPHALOPATHY, UNSPECIFIED SNOMED Code(s): 11302182 (4) UTI (urinary tract infection) Current Visit: Yes Status: Acute Code(s): N39.0 - URINARY TRACT INFECTION, SITE NOT SPECIFIED SNOMED Code(s): 77480540 (5) Acute renal failure Current Visit: Yes Status: Acute Code(s): N17.9 - ACUTE KIDNEY FAILURE, UNSPECIFIED SNOMED Code(s): 70914818 Plan: This 77-year-old female with underlying dementia is likely experiencing some acute metabolic and infectious encephalopathy. She is exhibiting no focal neurological symptoms at this point. We'll order an EEG, and it will be difficult because of her current behavior. Continue to treat her underlying infection and metabolic processes. Continue neurological checks. Since her psychiatric consultation. We will continue to follow and make further recommendations based on her progress. I have performed a history and physical on the above patient. I have reviewed the above note, and agree.
--- NOTE | 2017-12-13 17:36 | PN ---
PROGRESS NOTE DATE OF SERVICE: 12/13/2017 This 77-year-old woman was admitted with UTI, sepsis and change in mental status. Patient also had some behavioral abnormalities also. Neurology is following. Psych also is following the patient closely at this time. The patient also has some dementia. PAST MEDICAL HISTORY: Reviewed. REVIEW OF SYSTEMS: Could not be taken. Patient is confused and minimally verbal. CURRENT MEDICATIONS: Reviewed and include: 1. Tylenol 500 q.6 hours p.r.n. 2. Aspirin daily. 4. Rocephin 1 g. 5. Vitamin D3. 6. Haldol p.r.n. 7. Heparin 5000 subcu b.i.d. 8. Magnesium oxide daily. 9. Namenda 5 mg daily. 10.Narcan. 11.Protonix 40 mg daily. 12.Seroquel. 13.Senokot p.r.n. 14.Zoloft. PHYSICAL EXAM: Patient is conscious, but disoriented. Pulse is 109, blood pressure 162/75, respiration 18, temperature 97.4, pulse ox 98 percent on room air. HEENT: Conjunctivae normal. Oral mucosa moist. NECK: No jugular venous distention. No carotid bruit. No lymph node enlargement. CARDIOVASCULAR: S1, S2. RESPIRATORY: Breath sounds diminished in the bases. A few scattered rhonchi and crackles. ABDOMEN: Soft, nontender. No mass palpable. LEGS: No edema, no swelling. NERVOUS SYSTEM: Diffusely weak. LAB INVESTIGATIONS: At this time, CBC within normal limits. CO2 17, creatinine is 1.50. ASSESSMENT: 1. Urinary tract infection with sepsis, present on admission. 2. Change in mental status with acute metabolic encephalopathy secondary to sepsis and acute renal failure possibly prerenal acute tubular necrosis secondary to dehydration. 3. Dementia. 4. Gait dysfunction. 5. Gastroesophageal reflux disease. 6. Hyperlipidemia. 7. History of memory impairment. 8. History of bladder surgery. 9. History of cholecystectomy. 10.History of cataracts. 11.History of anxiety, depression. 12.NO CODE, NO CPR, NO VENT. RECOMMENDATIONS AND DISCUSSION: This 77-year-old woman who presented with multiple complex medical issues, will monitor the patient closely. Continue the current management, continue broad-spectrum IV antibiotics and follow the cultures. I would also recommend continued IV fluids , repeat labs. Creatinine appears to be slightly improving. The patient is still confused. I would recommend continue Haldol. Follow closely with neurology and psychiatry. The prognosis remains guarded. I would also recommend PT, OT evaluation. Possible social work involvement because apparently the assisted living facility is not willing to take her back according to the staff. In any case, prognosis guarded. Further recommendations to follow. See orders for details. Continue with multivitamin supplementation. MMODL / IJN: [id number] / MTDD
--- NOTE | 2017-12-13 18:47 | P.CN ---
Psychiatric Consult - . Consult date: 12/13/17 Consult:: Identifying Information 77 year old woman with history of alzheimers dementia residing at [facility] assisted living facility since august 2017 was brought to [facility] emergency room due to combative behavior. In the emergency room she was found to have UTI and was admitted to medicine. Psychiatry consult Psychiatry was consulted to evaluate patient for altered mental status. History of presenting illness Patient states there is nothing wrong with me, I am here for a fun ride. She is currently on 1:1 observation due to her combative/aggressive behaviors and trying to wander away from her bed/room. Per staff patient gets very restless and assaultive. Reportedly she has been pinching, hitting and grabbing staff. Per staff she responds well to haldol. She becomes less aggressive and more cooperative with haldol. She says she at [facility]. She states she [place] in this city. She believes she was living at her own home prior to her current hospitalizations. She states she brought herself to the hospital. When asked why she came to the hospital she states it has to do with the people and the club. She claims her children visit her at home when ever they want to at her home. She states she is 37 years old. When asked about her date of she stated 36. When asked about the date, she stated she doesnt know and claims she doesnt work out side of her house. According to the staff she did not eat since morning. When patient was asked why is she not eating she stated it is not her food and suddenly stated she is done talking and told the author to go on your journey. Patient is a poor historian and is uncooperative. Will try to reevaluate the patient when she is more cooperative Obtain collateral information Continue haldol 5mg po 6hrs prn for agitation Continue her currently prescribed Zoloft 100mg po qhs, seroquel 75mg po BID, namenda 5mg po qhs and buspar 10mg po bid. Will recommend haldol decanaote 50mg IM q 28 days. 12/13/17 18:46
[2017-12-13] MEDS ORDERED: HALOPERIDOL DECANOATE 50 MG/ML 1 ML VIAL IM SCH (19:00)
[2017-12-13] MEDS: SERTRALINE 100 MG TAB PO SCH (22:08)
[2017-12-13] MEDS: SENNOSIDES 8.6 MG TAB PO SCH (22:09)
[2017-12-13] MEDS: MEMANTINE 5 MG TAB PO SCH (22:09)
[2017-12-14] MEDS: 1: MVI, ADULT NO.4 WITH VIT K 10 ML, THIAMINE 100 MG, FOLIC ACID 1 MG, POTASSIUM CHLORID IV SCH ×15 (02:15→23:57)
[2017-12-14] MEDS: HALOPERIDOL LACTATE 5 MG/ML 1 ML VIAL IM PRN ×3 (02:54→11:53)
[2017-12-14] MEDS: PANTOPRAZOLE 40 MG TABLET PO SCH (07:12)
[2017-12-14] MEDS: busPIRone HCl 10 MG TAB PO SCH ×2 (07:12→20:33)
[2017-12-14] MEDS: QUEtiapine 25 MG TAB PO SCH ×2 (07:12→20:33)
[2017-12-14] MEDS: HEPARIN SODIUM,PORCINE 5,000 UNIT/ML 1 ML VIAL SQ SCH ×2 (08:10→20:34)
[2017-12-14] MEDS: MINERAL OIL-WHITE PETROLATUM 120 GM JAR TOPICAL SCH ×4 (08:10→20:37)
[2017-12-14] MEDS: cefTRIAXone IN SWFI 1,000 MG/10 ML SYRINGE IVP SCH (10:37)
[2017-12-14 10:48] LABS: Basophils # (A) 0.1 k/uL (0-0.2); Basophils % (A) 1 %; Eosinophils % (A) 0 %; HCT 37.2 % (34.0-46.0); HGB 11.8 gm/dL (11.4-16.0); Lymphocytes # (A) 1.5 k/uL (1.0-4.8); Lymphocytes % (A) 17 %; MCH 28.5 pg (25.0-35.0); MCHC 31.6 g/dL (31.0-37.0); MCV 89.9 fL (80.0-100.0); Mean Platelet Volume 6.1; Monocytes # (A) 0.5 k/uL (0-1.0); Monocytes % (A) 5 %; Neutrophils # (A) 6.4 k/uL (1.3-7.7); Neutrophils % (A) 75 %; Platelet Count 265 k/uL (150-450); RBC 4.13 m/uL (3.80-5.40); WBC 8.5 k/uL (3.8-10.6)
[2017-12-14 10:59] LABS: Calcium 9.6 mg/dL (8.4-10.2); Potassium 3.7 mmol/L (3.5-5.1)
--- NOTE | 2017-12-14 11:27 | P.PN ---
Subjective Progress Note Date: 12/14/17 Principal diagnosis: Mental status This is a 77-year-old female continuing to be evaluated by the neurology service for altered mental status and aggression. He was at her assisted living facility when the staff noticed she was becoming agitated and disoriented. Mentioned. Been treated for some acute renal failure and urinary tract infection. She still has not exhibited any focal neurological deficits. She is still at times quite combative and had to be put in soft restraints. Her confusion is not resolving very much. Time my exam she is resting comfortably in bed in no acute distress but she isn't soft wrist restraints. Objective - Vital Signs Vital signs: Vital Signs Temp 98.2 F 12/14/17 07:00 Pulse 89 12/14/17 07:00 Resp 18 12/14/17 07:00 BP 157/90 12/14/17 07:00 Pulse Ox 96 12/14/17 07:00 Intake & Output 12/13/17 12/14/17 12/14/17 18:59 06:59 18:59 Intake Total 0 Balance 0 Intake: Oral 0 Other: Voiding Method Incontinent # Voids 1 3 # Bowel Movements 0 - Constitutional General appearance: Present: average body habitus, no acute distress. Absent: cooperative - EENT Eyes: Present: PERRLA. Absent: abnormal pupil, ptosis ENT: Present: hearing grossly normal - Neck Neck: Present: normal ROM. Absent: rigidity - Respiratory Respiratory: negative: prolonged expiration, prolonged inspiration - Cardiovascular Rhythm: regular - Gastrointestinal General gastrointestinal: Absent: distended, tenderness - Neurologic Neurologic Comment(s): The patient is awake alert and oriented to person only. Speech is normal but she does have what might be some expressive aphasia although she is still confused and this might represent just some word finding of focal taking no facial asymmetry. Strength is full in bilateral upper and lower extremities. There is no sensory deficit. Tremors or seizure-like activities are seen. - Labs CBC & Chem 7: 12/14/17 10:31 12/14/17 10:31 Labs: Abnormal Lab Results - Last 24 Hours (Table) 12/13/17 12/14/17 Range/Units 11:13 10:31 Chloride 112 H 112 H (98-107) mmol/L Carbon Dioxide 17 L 18 L (22-30) mmol/L BUN 22 H (7-17) mg/dL Creatinine 1.50 H 1.12 H (0.52-1.04) mg/dL Glucose 111 H 100 H (74-99) mg/dL Microbiology - Last 24 Hours (Table) 12/12/17 23:57 Blood Culture - Preliminary Blood No Growth after 24 hours 12/12/17 14:23 Urine Culture - Preliminary Urine,Clean Catch Gram Neg Bacilli Assessment and Plan (1) Dementia Current Visit: Yes Status: Chronic Code(s): F03.90 - UNSPECIFIED DEMENTIA WITHOUT BEHAVIORAL DISTURBANCE SNOMED Code(s): 11057630 (2) Aggressive behavior Current Visit: Yes Status: Acute Code(s): R46.89 - OTHER SYMPTOMS AND SIGNS INVOLVING APPEARANCE AND BEHAVIOR SNOMED Code(s): 94513895 (3) Encephalopathy Current Visit: Yes Status: Suspected Code(s): G93.40 - ENCEPHALOPATHY, UNSPECIFIED SNOMED Code(s): 38394554 (4) UTI (urinary tract infection) Current Visit: Yes Status: Acute Code(s): N39.0 - URINARY TRACT INFECTION, SITE NOT SPECIFIED SNOMED Code(s): 61951573 (5) Acute renal failure Current Visit: Yes Status: Acute Code(s): N17.9 - ACUTE KIDNEY FAILURE, UNSPECIFIED SNOMED Code(s): 82646393 (6) Expressive aphasia Current Visit: Yes Status: Acute Code(s): R47.01 - APHASIA SNOMED Code(s) : 072793550 Plan: This 77-year-old female with underlying dementia is likely experiencing some acute metabolic and infectious encephalopathy. She is exhibiting no focal neurological symptoms at this point, but now that she is a little more vocal I do feel that she has some level of expressive aphasia. This could be due to her confusion. an EEG is been ordered, and it will be difficult because of her current behavior. I will order CT of the brain. Continue to treat her underlying infection and metabolic processes. Continue neurological checks. She has had psychiatric consultation. We will continue to follow and make further recommendations based on her progress. I have performed a history and physical on the above patient. I have reviewed the above note, and agree.
[2017-12-14] MEDS: ZIPRASIDONE 20 MG VIAL IM PRN (12:41)
--- NOTE | 2017-12-14 16:40 | PN ---
PROGRESS NOTE DATE OF SERVICE: 12/14/2017 This 77-year-old woman who was admitted with UTI with sepsis also being combative and confused. The patient needed restraints for patient's safety as well as administration of medications. Psych evaluation is in progress at this time. EXAM: The patient is conscious, confused. Pulse 43, blood pressure 130/60, respirations 16, temperature 98.9, pulse ox 98% on room air. HEENT: Conjunctivae normal. Oral mucosa moist. Neck is no jugular venous distention. No carotid bruit. No lymph node enlargement. CARDIOVASCULAR: S1, S2. RESPIRATORY: Breath sounds diminished in the bases. A few rhonchi, no crackles. ABDOMEN: Soft, nontender. LEGS: No edema. NERVOUS SYSTEM: No focal deficits. LABS: CBC within normal limits. Creatinine is 1.12 and cultures are showing gram-negative bacilli. ASSESSMENT: 1. Urinary tract infection with possible sepsis, present on admission. 2. Change in mental status acute metabolic encephalopathy secondary to sepsis. 3. Acute renal failure possibly acute tubular necrosis secondary to dehydration. 4. Dementia with behavior changes. 5. Gait dysfunction. 6. Gastroesophageal reflux disease. 7. Hyperlipidemia. 8. History of memory impairment. 9. History of bladder surgery. 10.History of cholecystectomy. 11.History of cataracts. 12.History of anxiety, depression. 13.NO CODE, NO CPR, NO VENT. RECOMMENDATIONS AND DISCUSSION: I recommend to continue current management and symptomatic treatment. Otherwise continue the antibiotics. Closely follow with psychiatric. Sol Kelley. Guarded prognosis because of multiple complex medical issues. Further recommendations to follow. MMODL / IJN: [id number] /
[2017-12-14] MEDS: CHOLECALCIFEROL 1,000 UNIT TAB PO SCH (17:28)
[2017-12-14] MEDS: MAGNESIUM OXIDE 400 MG TAB PO SCH (17:28)
[2017-12-14] MEDS: ASPIRIN 81 MG PO SCH (17:28)
[2017-12-14] MEDS: SERTRALINE 100 MG TAB PO SCH (20:33)
[2017-12-14] MEDS: SENNOSIDES 8.6 MG TAB PO SCH (20:37)
[2017-12-14] MEDS: MEMANTINE 5 MG TAB PO SCH (20:37)
[2017-12-15 07:42] LABS: Basophils % (A) 0 %; Eosinophils # (A) 0.1 k/uL (0-0.7); Eosinophils % (A) 1 %; HCT 39.6 % (34.0-46.0); HGB 12.5 gm/dL (11.4-16.0); Lymphocytes # (A) 1.2 k/uL (1.0-4.8); Lymphocytes % (A) 11 %; MCH 28.6 pg (25.0-35.0); MCHC 31.6 g/dL (31.0-37.0); MCV 90.7 fL (80.0-100.0); Mean Platelet Volume 6.4; Monocytes # (A) 0.5 k/uL (0-1.0); Monocytes % (A) 5 %; Neutrophils # (A) 8.2 k/uL (1.3-7.7); Neutrophils % (A) 81 %; Platelet Count 294 k/uL (150-450); RBC 4.37 m/uL (3.80-5.40); WBC 10.1 k/uL (3.8-10.6)
[2017-12-15 08:05] LABS: Calcium 9.3 mg/dL (8.4-10.2); Potassium 3.7 mmol/L (3.5-5.1)
[2017-12-15] MEDS: HEPARIN SODIUM,PORCINE 5,000 UNIT/ML 1 ML VIAL SQ SCH ×2 (08:13→20:25)
[2017-12-15] MEDS: QUEtiapine 25 MG TAB PO SCH ×2 (08:13→20:25)
[2017-12-15] MEDS: busPIRone HCl 10 MG TAB PO SCH ×2 (08:13→20:25)
[2017-12-15] MEDS: PANTOPRAZOLE 40 MG TABLET PO SCH (08:14)
[2017-12-15] MEDS: MINERAL OIL-WHITE PETROLATUM 120 GM JAR TOPICAL SCH ×4 (08:14→20:25)
[2017-12-15] MEDS: cefTRIAXone IN SWFI 1,000 MG/10 ML SYRINGE IVP SCH (08:14)
--- NOTE | 2017-12-15 12:37 | P.PN ---
Subjective Progress Note Date: 12/15/17 Principal diagnosis: Altered Mental status This is a 77-year-old female continuing to be evaluated by the neurology service for altered mental status and aggression. She was at her assisted living facility when the staff noticed she was becoming agitated and disoriented. She is currently being treated for some acute renal failure and urinary tract infection. She is out of soft restraints but was not able to cooperate her CT of the brain. Her confusion is resolving slightly. At the Time of my exam she is resting comfortably in bed in no acute distress and out of soft wrist restraints. Objective - Vital Signs Vital signs: Vital Signs Temp 98.1 F 12/15/17 07:05 Pulse 80 12/15/17 07:05 Resp 16 12/15/17 08:00 BP 165/84 12/15/17 07:05 Pulse Ox 97 12/15/17 07:05 Intake & Output 12/14/17 12/15/17 12/15/17 18:59 06:59 18:59 Intake Total 0 Balance 0 Intake: Oral 0 Other: Voiding Method Incontinent Incontinent # Voids 4 2 # Bowel Movements 0 - Constitutional General appearance: Present: average body habitus, no acute distress - EENT Eyes: Present: EOMI, PERRLA. Absent: abnormal pupil, ptosis ENT: Present: hearing grossly normal - Neck Neck: Present: normal ROM. Absent: rigidity - Respiratory Respiratory: negative: prolonged expiration, prolonged inspiration - Cardiovascular Rhythm: regular - Gastrointestinal General gastrointestinal: Absent: distended, tenderness - Neurologic Neurologic Comment(s): The patient is awake and oriented to person and partially to place. She knew she was in [place]. Speech is a little dysarthric. Language seems normal. Although she has a paucity of speech. She has a faint left mouth droop that was not seen previously. Strength is 5 minus out of 5 in bilateral upper and lower extremities. She has no sensory deficit. She has postural tremors are bilateral upper extremities. No Cogwheel rigidity. no seizure-like activity seen. - Labs CBC & Chem 7: 12/15/17 07:12 12/15/17 07:12 Labs: Abnormal Lab Results - Last 24 Hours (Table) 12/15/17 12/15/17 Range/Units 07:12 07:12 Neutrophils # 8.2 H (1.3-7.7) k/uL Chloride 112 H (98-107) mmol/L Carbon Dioxide 19 L (22-30) mmol/L Creatinine 1.05 H (0.52-1.04) mg/dL Microbiology - Last 24 Hours (Table) 12/12/17 23:57 Blood Culture - Preliminary Blood No Growth after 48 hours 12/12/17 14:23 Urine Culture - Final Urine,Clean Catch Enterobacter cloacae Assessment and Plan (1) Dementia Current Visit: Yes Status: Chronic Code(s): F03.90 - UNSPECIFIED DEMENTIA WITHOUT BEHAVIORAL DISTURBANCE SNOMED Code(s): 18569572 (2) Aggressive behavior Current Visit: Yes Status: Acute Code(s): R46.89 - OTHER SYMPTOMS AND SIGNS INVOLVING APPEARANCE AND BEHAVIOR SNOMED Code(s): 56775513 (3) Encephalopathy Current Visit: Yes Status: Suspected Code(s): G93.40 - ENCEPHALOPATHY, UNSPECIFIED SNOMED Code(s): 67271495 (4) UTI (urinary tract infection) Current Visit: Yes Status: Acute Code(s): N39.0 - URINARY TRACT INFECTION, SITE NOT SPECIFIED SNOMED Code(s): 92050292 (5) Acute renal failure Current Visit: Yes Status: Acute Code(s): N17.9 - ACUTE KIDNEY FAILURE, UNSPECIFIED SNOMED Code(s): 70241325 (6) Expressive aphasia Current Visit: Yes Status: Acute Code(s): R47.01 - APHASIA SNOMED Code(s) : 736841520 (7) Weakness on left side of face Current Visit: Yes Status: Acute Code(s): R29.810 - FACIAL WEAKNESS SNOMED Code(s): 429188665 Plan: This 77-year-old female with underlying dementia is likely experiencing some acute metabolic and infectious encephalopathy. She has a little bit of a left sided mouth droop and now that she is a little more vocal I do feel that she has some level of expressive aphasia. This could be due to her confusion. an EEG is been ordered. She was not able to comply with her CT of the brain. It will be attempted again. Physical, occupational and speech therapy evaluation. Continue to treat her underlying infection and metabolic processes. Continue neurological checks. She has had psychiatric consultation. We will continue to follow and make further recommendations based on her progress. I have performed a history and physical on the above patient. I have reviewed the above note, and agree.
[2017-12-15] MEDS: SODIUM CHLORIDE 0.9% 1,000 ML IV SCH (13:04)
[2017-12-15] MEDS: 1: MVI, ADULT NO.4 WITH VIT K 10 ML, THIAMINE 100 MG, FOLIC ACID 1 MG, POTASSIUM CHLORID IV SCH ×5 (13:05)
--- NOTE | 2017-12-15 13:34 | CT ---
EXAMINATION TYPE: CT brain wo con DATE OF EXAM: 12/15/2017 COMPARISON: 10/12/2017 HISTORY: Patient poor historian altered mental status. Confusion. CT DLP: 1072.3 mGycm Automated exposure control for dose reduction was used. FINDINGS: There is cerebral cortical atrophy. There is hypodensity in the periventricular white matter. There i s no mass effect nor midline shift. There is no sign of intracranial hemorrhage. The calvarium is int act. There is fluid level in the right sphenoid sinus. IMPRESSION: CEREBRAL ATROPHY AND CHRONIC SMALL VESSEL ISCHEMIA. NO ACUTE INTRACRANIAL ABNORMALITY. NO CHANGE.
[2017-12-15] MEDS: CHOLECALCIFEROL 1,000 UNIT TAB PO SCH (15:29)
[2017-12-15] MEDS: MAGNESIUM OXIDE 400 MG TAB PO SCH (15:29)
[2017-12-15] MEDS: ASPIRIN 81 MG PO SCH (15:29)
[2017-12-15] MEDS: SERTRALINE 100 MG TAB PO SCH (20:25)
[2017-12-15] MEDS: SENNOSIDES 8.6 MG TAB PO SCH (20:25)
[2017-12-15] MEDS: MEMANTINE 5 MG TAB PO SCH (20:25)
[2017-12-15] MEDS: HALOPERIDOL LACTATE 5 MG/ML 1 ML VIAL IM PRN (21:44)
--- NOTE | 2017-12-16 06:32 | PN ---
PROGRESS NOTE DATE OF SERVICE: 12/15/2017 This 77-year-old woman was admitted with UTI and sepsis and change in mental status, is being closely monitored. The patient needed soft restraints for patient safety as well as administration of medications. A CAT scan showed cerebral atrophy and chronic small vessel ischemia. PHYSICAL EXAMINATION: On exam, the patient is conscious, confused, disoriented. Pulse 75, blood pressure 109/59, respiration 16, temperature 97.1, pulse ox 97% on room air. HEENT: Conjunctivae normal. Oral mucosa NECK: No jugular venous distention. No carotid bruit. No lymph node enlargement. CARDIOVASCULAR: S1 and S2 muffled. RESPIRATORY: Breath sounds diminished at the bases. No rhonchi, no crackles. ABDOMEN: Soft, nontender. NERVOUS SYSTEM: Diffusely weak. LABS: CBC within normal limits and creatinine is 1.05. UA noted. The urine cultures showed Enterobacter cloacae. ASSESSMENT: 1. Urinary tract infection with possible sepsis with Enterobacter cloacae, present on admission. 2. Change in mental status, metabolic encephalopathy secondary to sepsis. 3. Acute renal failure possibly acute tubular necrosis secondary to dehydration. 4. Dementia with behavioral changes. 5. Gait dysfunction. 6. Gastroesophageal reflux disease. 7. Hyperlipidemia. 8. History of memory impairment. 9. History of bladder surgery. 10.History of cholecystectomy. 11.History of cataracts. 12.Anxiety, depression. 13.NO CODE, NO CPR, NO VENT. RECOMMENDATIONS AND DISCUSSION: Recommend to continue current medications and continue symptomatic treatment. Otherwise at this time I would recommend continue with current medications, continue with symptomatic treatment. Continue with antibiotics. Enterobacter cloacae sensitive to Rocephin. Continue with Warren mckeon. Closely follow with Psychiatry. Further recommendations to follow. MMODL / IJN: [id number] / [id number]
[2017-12-16] MEDS: busPIRone HCl 10 MG TAB PO SCH ×2 (07:48→22:14)
[2017-12-16] MEDS: HEPARIN SODIUM,PORCINE 5,000 UNIT/ML 1 ML VIAL SQ SCH ×2 (07:48→22:13)
[2017-12-16] MEDS: PANTOPRAZOLE 40 MG TABLET PO SCH (07:48)
[2017-12-16] MEDS: cefTRIAXone IN SWFI 1,000 MG/10 ML SYRINGE IVP SCH (07:49)
[2017-12-16] MEDS: QUEtiapine 25 MG TAB PO SCH ×2 (07:49→22:13)
[2017-12-16] MEDS: SODIUM CHLORIDE 0.9% 1,000 ML IV SCH ×2 (07:50→22:16)
[2017-12-16] MEDS: MINERAL OIL-WHITE PETROLATUM 120 GM JAR TOPICAL SCH ×4 (07:51→22:16)
[2017-12-16 09:54] LABS: Basophils % (A) 0 %; Eosinophils # (A) 0.1 k/uL (0-0.7); Eosinophils % (A) 2 %; HCT 35.9 % (34.0-46.0); HGB 11.2 gm/dL (11.4-16.0); Lymphocytes # (A) 0.7 k/uL (1.0-4.8); Lymphocytes % (A) 10 %; MCH 28.1 pg (25.0-35.0); MCV 90.6 fL (80.0-100.0); Mean Platelet Volume 6.8; Monocytes # (A) 0.3 k/uL (0-1.0); Monocytes % (A) 4 %; Neutrophils # (A) 5.9 k/uL (1.3-7.7); Neutrophils % (A) 83 %; Platelet Count 255 k/uL (150-450); RBC 3.97 m/uL (3.80-5.40); RDW 13.9 % (11.5-15.5); WBC 7.1 k/uL (3.8-10.6)
[2017-12-16 10:02] LABS: Calcium 9.1 mg/dL (8.4-10.2); Potassium 3.6 mmol/L (3.5-5.1)
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
[2017-12-16 14:35] VITALS: BMI 34.2
[2017-12-16] MEDS: MAGNESIUM OXIDE 400 MG TAB PO SCH (16:02)
[2017-12-16] MEDS: CHOLECALCIFEROL 1,000 UNIT TAB PO SCH (16:03)
[2017-12-16] MEDS: ASPIRIN 81 MG PO SCH (16:03)
[2017-12-16] MEDS: MEMANTINE 5 MG TAB PO SCH (22:13)
[2017-12-16] MEDS: SERTRALINE 100 MG TAB PO SCH (22:13)
[2017-12-16] MEDS: SENNOSIDES 8.6 MG TAB PO SCH (22:13)
--- NOTE | 2017-12-16 22:14 | P.PN ---
Subjective Progress Note Date: 12/16/17 Progress note being dictated for Dr. Langford Interval history: This is a 77-year-old female admitted with acute UTI with Enterobacter Clocae, possible sepsis, metabolic encephalopathy secondary sepsis , acute renal failure and multiple other medical issues. Maintained on IV antibiotics, gentle IV fluid hydration. Renal function improving. Evaluated by psychiatry with recommendations noted. PRN Geodon with significant clinical improvement. Soft restraints are off. Cooperative. Diet intake fair. Sitter at bedside. Objective - Vital Signs Vital signs: Vital Signs Temp 97.7 F 12/16/17 13:30 Pulse 84 12/16/17 13:30 Resp 18 12/16/17 13:30 BP 123/73 12/16/17 13:30 Pulse Ox 96 12/16/17 13:30 Intake & Output 12/16/17 12/16/17 12/17/17 06:59 18:59 06:59 Output Total 136 Balance -136 Weight 79.379 kg Output: Post Void Residual 136 Other: Voiding Method Incontinent # Voids 1 1 # Bowel Movements 0 - Exam PHYSICAL EXAM: VITAL SIGNS: As above GENERAL: Sitting up in bed, alert, confused, cooperative HEENT: Conjunctivae normal. eyes normal. Oral mucosa moist NECK: No JVD. No thyroid enlargement. No LNs CARDIOVASCULAR: S1, S2 muffled. No murmur RESPIRATION: Breath sounds diminished in the bases. No rhonchi or crackles. ABDOMEN: Soft, nontender . No guarding. no masses palpable. Bowel sounds heard. PSYCHIATRY: Alert and oriented -1, pleasantly confused, NERVOUS SYSTEM: Diffuse weakness. Microbiology 12/12/17 23:57 Blood Blood Culture - Preliminary No Growth after 72 hours 12/12/17 14:23 Urine,Clean Catch Urine Culture - Final Enterobacter cloacae - Labs CBC & Chem 7: 12/16/17 09:12 12/16/17 09:12 Labs: Abnormal Lab Results - Last 24 Hours (Table) 12/16/17 12/16/17 Range/Units 09:12 09:12 Hgb 11.2 L (11.4-16.0) gm/dL Lymphocytes # 0.7 L (1.0-4.8) k/uL Chloride 112 H (98-107) mmol/L Carbon Dioxide 19 L (22-30) mmol/L Microbiology - Last 24 Hours (Table) 12/12/17 23:57 Blood Culture - Preliminary Blood No Growth after 72 hours Assessment and Plan Assessment: 1. Acute UTI with Enterobacter Clocae, with possible sepsis, present on admission 2. Change in mental status, acute metabolic encephalopathy secondary to sepsis 3. Acute renal failure, possibly acute tubular necrosis secondary to dehydration 4. Dementia with behavioral changes Plan: Continue on current medication regime ,monitoring and symptomatic treatment. Maintain antibiotics, gentle IV fluid hydration.close monitoring of renal function with repeat labs ordered for cm echols. Sitter being removed. Follow closely with psychiatry. Discharge planning in progress for tomorrow to [facility] or [facility]. Further recommendations to follow. The impression and plan of care has been dictated as directed. : I performed a history and examination of this patient, discussed the same with the dictator. I agree with the dictator's note ,documented as a scribe. Any additional findings or plans will be noted.
[2017-12-17] MEDS: cefTRIAXone IN SWFI 1,000 MG/10 ML SYRINGE IVP SCH (08:45)
[2017-12-17] MEDS: PANTOPRAZOLE 40 MG TABLET PO SCH (08:45)
[2017-12-17] MEDS: busPIRone HCl 10 MG TAB PO SCH ×2 (08:45→19:57)
[2017-12-17] MEDS: HEPARIN SODIUM,PORCINE 5,000 UNIT/ML 1 ML VIAL SQ SCH ×2 (08:46→19:57)
[2017-12-17] MEDS: QUEtiapine 25 MG TAB PO SCH ×2 (08:46→19:57)
[2017-12-17] MEDS: MINERAL OIL-WHITE PETROLATUM 120 GM JAR TOPICAL SCH ×4 (08:46→19:58)
[2017-12-17 10:36] LABS: Basophils % (A) 0 %; Eosinophils # (A) 0.1 k/uL (0-0.7); Eosinophils % (A) 1 %; HCT 36.5 % (34.0-46.0); HGB 11.4 gm/dL (11.4-16.0); Lymphocytes # (A) 0.8 k/uL (1.0-4.8); Lymphocytes % (A) 10 %; MCH 28.1 pg (25.0-35.0); MCHC 31.3 g/dL (31.0-37.0); MCV 89.8 fL (80.0-100.0); Mean Platelet Volume 6.8; Monocytes # (A) 0.2 k/uL (0-1.0); Monocytes % (A) 3 %; Neutrophils # (A) 6.5 k/uL (1.3-7.7); Neutrophils % (A) 85 %; Platelet Count 289 k/uL (150-450); RBC 4.06 m/uL (3.80-5.40); WBC 7.7 k/uL (3.8-10.6)
[2017-12-17 10:48] LABS: Calcium 9.2 mg/dL (8.4-10.2); Potassium 3.6 mmol/L (3.5-5.1)
[2017-12-17] MEDS: SODIUM CHLORIDE 0.9% 1,000 ML IV SCH (11:20)
[2017-12-17] MEDS: CHOLECALCIFEROL 1,000 UNIT TAB PO SCH (16:39)
[2017-12-17] MEDS: ASPIRIN 81 MG PO SCH (16:39)
[2017-12-17] MEDS: MAGNESIUM OXIDE 400 MG TAB PO SCH (16:40)
--- NOTE | 2017-12-17 18:01 | P.PN ---
Subjective Progress Note Date: 12/17/17 Progress note being dictated for Dr. Bryant. Interval history: This is a 77-year-old female admitted with acute UTI with Enterobacter Clocae, possible sepsis, metabolic encephalopathy secondary sepsis , acute renal failure and multiple other medical issues. Maintained on IV antibiotics, gentle IV fluid hydration. Renal function improving. Evaluated by psychiatry with recommendations noted. PRN Geodon with significant clinical improvement. Soft restraints are off. Cooperative. Diet intake fair. Sitter at bedside. 12/17/2017 remain sitter free. Diet intake improving. Cooperative, pleasantly confused. Afebrile, normal WBC. Creatinine 0.95. Has not required any Haldol for Geodon, last night or today. Objective - Vital Signs Vital signs: Vital Signs Temp 98.3 F 12/17/17 14:14 Pulse 83 12/17/17 14:14 Resp 16 12/17/17 14:14 BP 101/67 12/17/17 14:14 Pulse Ox 96 12/17/17 14:14 Intake & Output 12/16/17 12/17/17 12/17/17 18:59 06:59 18:59 Intake Total 600 1200 Output Total 136 Balance -[phone] Weight 79.379 kg Intake: Intake, IV Titration 600 Amount Sodium Chloride 0.9% 1, 600 000 ml @ 75 mls/hr IV . [id number] Rx#:[id number] Oral 1200 Output: Post Void Residual 136 Other: Voiding Method Incontinent Incontinent Incontinent # Voids 1 1 1 # Bowel Movements 0 - Exam PHYSICAL EXAM: VITAL SIGNS: As above GENERAL: Sitting up in bed, alert, confused, cooperative, answering simple questions HEENT: Conjunctivae normal. eyes normal. Oral mucosa moist NECK: No JVD. No thyroid enlargement. No LNs CARDIOVASCULAR: S1, S2 muffled. No murmur RESPIRATION: Breath sounds diminished in the bases. No rhonchi or crackles. ABDOMEN: Soft, nontender . No guarding. no masses palpable. Bowel sounds heard. PSYCHIATRY: Alert and oriented -1, pleasantly confused, NERVOUS SYSTEM: Diffuse weakness. Microbiology 12/12/17 23:57 Blood Blood Culture - Preliminary No Growth after 96 hours 12/12/17 14:23 Urine,Clean Catch Urine Culture - Final Enterobacter cloacae - Labs CBC & Chem 7: 12/17/17 09:48 12/17/17 09:48 Labs: Abnormal Lab Results - Last 24 Hours (Table) 12/17/17 12/17/17 Range/Units 09:48 09:48 Lymphocytes # 0.8 L (1.0-4.8) k/uL Chloride 111 H (98-107) mmol/L Glucose 168 H (74-99) mg/dL Microbiology - Last 24 Hours (Table) 12/12/17 23:57 Blood Culture - Preliminary Blood No Growth after 96 hours Assessment and Plan Assessment: 1. Acute UTI with Enterobacter Clocae, with possible sepsis, present on admission 2. Change in mental status, acute metabolic encephalopathy secondary to sepsis 3. Acute renal failure, possibly acute tubular necrosis secondary to dehydration 4. Dementia with behavioral changes Plan: Continue on current medication regime ,monitoring and symptomatic treatment. Maintain antibiotics, gentle IV fluid hydration.close monitoring of renal function with repeat labs ordered for a.m. medical social consultant assisting him placement. Daughter is flying in from [place], arriving Friday night. Plans on reviewing the local ECF's over the weekend. Discharge planning in progress. Further recommendations to follow. The impression and plan of care has been dictated as directed. : I performed a history and examination of this patient, discussed the same with the dictator. I agree with the dictator's note ,documented as a scribe. Any additional findings or plans will be noted.
[2017-12-17] MEDS: MEMANTINE 5 MG TAB PO SCH (19:57)
[2017-12-17] MEDS: SERTRALINE 100 MG TAB PO SCH (19:58)
[2017-12-17] MEDS: SENNOSIDES 8.6 MG TAB PO SCH (19:58)
[2017-12-18] MEDS: SODIUM CHLORIDE 0.9% 1,000 ML IV SCH ×2 (00:29→16:22)
[2017-12-18] MEDS: HALOPERIDOL LACTATE 5 MG/ML 1 ML VIAL IM PRN (01:10)
[2017-12-18] MEDS: MAGNESIUM OXIDE 400 MG TAB PO SCH (08:23)
[2017-12-18] MEDS: cefTRIAXone IN SWFI 1,000 MG/10 ML SYRINGE IVP SCH (08:23)
[2017-12-18] MEDS: CHOLECALCIFEROL 1,000 UNIT TAB PO SCH (08:24)
[2017-12-18] MEDS: PANTOPRAZOLE 40 MG TABLET PO SCH (08:24)
[2017-12-18] MEDS: QUEtiapine 25 MG TAB PO SCH ×2 (08:24→21:25)
[2017-12-18] MEDS: ASPIRIN 81 MG PO SCH (08:24)
[2017-12-18] MEDS: HEPARIN SODIUM,PORCINE 5,000 UNIT/ML 1 ML VIAL SQ SCH ×3 (08:24→20:29)
[2017-12-18] MEDS: busPIRone HCl 10 MG TAB PO SCH ×2 (08:24→21:26)
[2017-12-18] MEDS: MINERAL OIL-WHITE PETROLATUM 120 GM JAR TOPICAL SCH ×4 (08:24→21:40)
[2017-12-18] MEDS: ZIPRASIDONE 20 MG VIAL IM PRN (20:25)
[2017-12-18] MEDS: SENNOSIDES 8.6 MG TAB PO SCH (21:25)
[2017-12-18] MEDS: SERTRALINE 100 MG TAB PO SCH (21:26)
[2017-12-18] MEDS: MEMANTINE 5 MG TAB PO SCH (21:26)
[2017-12-19] MEDS: HALOPERIDOL LACTATE 5 MG/ML 1 ML VIAL IM PRN (03:07)
[2017-12-19] MEDS: SODIUM CHLORIDE 0.9% 1,000 ML IV SCH ×2 (05:43→08:09)
[2017-12-19] MEDS: ASPIRIN 81 MG PO SCH (08:08)
[2017-12-19] MEDS: QUEtiapine 25 MG TAB PO SCH ×2 (08:08→21:57)
[2017-12-19] MEDS: PANTOPRAZOLE 40 MG TABLET PO SCH (08:08)
[2017-12-19] MEDS: cefTRIAXone IN SWFI 1,000 MG/10 ML SYRINGE IVP SCH (08:08)
[2017-12-19] MEDS: HEPARIN SODIUM,PORCINE 5,000 UNIT/ML 1 ML VIAL SQ SCH ×2 (08:08→21:58)
[2017-12-19] MEDS: busPIRone HCl 10 MG TAB PO SCH ×2 (08:09→21:57)
[2017-12-19] MEDS: MINERAL OIL-WHITE PETROLATUM 120 GM JAR TOPICAL SCH ×4 (08:09→21:58)
[2017-12-19] MEDS: CHOLECALCIFEROL 1,000 UNIT TAB PO SCH (08:09)
[2017-12-19] MEDS: MAGNESIUM OXIDE 400 MG TAB PO SCH (08:09)
[2017-12-19] MEDS ORDERED: Potassium Replacement Protocol 1 EACH MISC MISCELLANE PRN (09:24)
[2017-12-19 10:51] LABS: Basophils % (A) 1 %; Eosinophils # (A) 0.3 k/uL (0-0.7); Eosinophils % (A) 4 %; HCT 35.5 % (34.0-46.0); HGB 11.2 gm/dL (11.4-16.0); Lymphocytes # (A) 1.2 k/uL (1.0-4.8); Lymphocytes % (A) 20 %; MCH 28.8 pg (25.0-35.0); MCHC 31.6 g/dL (31.0-37.0); MCV 90.9 fL (80.0-100.0); Mean Platelet Volume 6.7; Monocytes # (A) 0.4 k/uL (0-1.0); Monocytes % (A) 7 %; Neutrophils # (A) 4.1 k/uL (1.3-7.7); Neutrophils % (A) 66 %; Platelet Count 279 k/uL (150-450); RBC 3.91 m/uL (3.80-5.40); WBC 6.2 k/uL (3.8-10.6)
[2017-12-19 10:55] LABS: Calcium 9.5 mg/dL (8.4-10.2); Magnesium 1.7 mg/dL (1.6-2.3)
[2017-12-19] MEDS: THIAMINE 100 MG TAB PO SCH (11:35)
[2017-12-19] MEDS: MULTIVITAMINS, THERA 1 EACH TAB PO SCH (11:35)
[2017-12-19] MEDS: FOLIC ACID 1 MG TAB PO SCH (11:35)
--- NOTE | 2017-12-19 13:40 | P.PN ---
Subjective Progress Note Date: 12/18/17 Progress note being dictated for Dr. Bianchi Interval history: This is a 77-year-old female admitted with acute UTI with Enterobacter Clocae, possible sepsis, metabolic encephalopathy secondary sepsis , acute renal failure and multiple other medical issues. Maintained on IV antibiotics, gentle IV fluid hydration. Renal function improving. Evaluated by psychiatry with recommendations noted. PRN Geodon with significant clinical improvement. Soft restraints are off. Cooperative. Diet intake fair. Sitter at bedside. 12/17/2017 remain sitter free. Diet intake improving. Cooperative, pleasantly confused. Afebrile, normal WBC. Creatinine 0.95. Has not required any Haldol for Geodon, last night or today. 12/18/2017 maintained on IV antibiotics for acute UTI .sitting up in chair, eating lunch. No nausea vomiting or diarrhea. Denies abdominal pain. Required Haldol early this a.m. for agitation/combativeness. Currently Calm, Cooperative, conversing. Afebrile. Denies chest pain, palpitations or shortness of breath. Denies lightheadedness dizziness or focal deficits. Objective - Vital Signs Vital signs: Vital Signs Temp 97.9 F 12/18/17 15:20 Pulse 87 12/18/17 15:20 Resp 16 12/18/17 16:00 BP 133/71 12/18/17 15:20 Pulse Ox 99 12/18/17 15:20 Intake & Output 12/18/17 12/18/17 12/19/17 06:59 18:59 06:59 Other: Voiding Method Incontinent Incontinent # Voids 2 3 # Bowel Movements 1 - Exam PHYSICAL EXAM: VITAL SIGNS: As above GENERAL: Sitting up in chair, alert, pleasantly confused HEENT: Conjunctivae normal. eyes normal. Oral mucosa moist NECK: No JVD. No thyroid enlargement. No LNs CARDIOVASCULAR: S1, S2 muffled. No murmur RESPIRATION: Breath sounds diminished in the bases. No rhonchi or crackles. ABDOMEN: Soft, nontender . No guarding. no masses palpable. Bowel sounds heard. PSYCHIATRY: Alert and oriented -1, pleasantly confused, cooperative NERVOUS SYSTEM: Diffuse weakness. Microbiology 12/12/17 23:57 Blood Blood Culture - Final No Growth after 144 hours 12/12/17 14:23 Urine,Clean Catch Urine Culture - Final Enterobacter cloacae - Labs CBC & Chem 7: 12/19/17 10:05 12/19/17 10:05 Labs: Microbiology - Last 24 Hours (Table) 12/12/17 23:57 Blood Culture - Preliminary Blood No Growth after 120 hours Assessment and Plan Assessment: 1. Acute UTI with Enterobacter Clocae, with possible sepsis, present on admission 2. Change in mental status, acute metabolic encephalopathy secondary to sepsis 3. Acute renal failure, possibly acute tubular necrosis secondary to dehydration, improving 4. Dementia with behavioral changes Plan: Continue on current medication regime ,monitoring and symptomatic treatment. Maintain antibiotics, gentle IV fluid hydration.increase ambulation as tolerated .close monitoring of renal function with repeat labs ordered for a.m. social services assistant assisting with locating accepting ECFs. The impression and plan of care has been dictated as directed. : I performed a history and examination of this patient, discussed the same with the dictator. I agree with the dictator's note ,documented as a scribe. Any additional findings or plans will be noted.
--- NOTE | 2017-12-19 13:49 | P.PN ---
Subjective Progress Note Date: 12/19/17 Progress note being dictated for Dr. Bianchi Interval history: This is a 77-year-old female admitted with acute UTI with Enterobacter Clocae, possible sepsis, metabolic encephalopathy secondary sepsis , acute renal failure and multiple other medical issues. Maintained on IV antibiotics, gentle IV fluid hydration. Renal function improving. Evaluated by psychiatry with recommendations noted. PRN Geodon with significant clinical improvement. Soft restraints are off. Cooperative. Diet intake fair. Sitter at bedside. 12/17/2017 remain sitter free. Diet intake improving. Cooperative, pleasantly confused. Afebrile, normal WBC. Creatinine 0.95. Has not required any Haldol for Geodon, last night or today. 12/18/2017 maintained on IV antibiotics for acute UTI .sitting up in chair, eating lunch. No nausea vomiting or diarrhea. Denies abdominal pain. Required Haldol early this a.m. for agitation/combativeness. Currently Calm, Cooperative, conversing. Afebrile. Denies chest pain, palpitations or shortness of breath. Denies lightheadedness dizziness or focal deficits. 12/19/2017 continues on IV antibiotics. Required Haldol earlier this morning, currently sedated. Renal function significantly improved. Afebrile. Objective - Vital Signs Vital signs: Vital Signs Temp 97.1 F L 12/19/17 06:11 Pulse 79 12/19/17 06:11 Resp 16 12/19/17 08:00 BP 149/81 12/19/17 06:11 Pulse Ox 95 12/19/17 06:11 Intake & Output 12/18/17 12/19/17 12/19/17 18:59 06:59 18:59 Other: Voiding Method Incontinent Toilet # Voids 3 4 # Bowel Movements 1 - Exam PHYSICAL EXAM: VITAL SIGNS: As above GENERAL: Lying in bed, sleeping HEENT: Conjunctivae normal. eyes normal. NECK: No JVD. No thyroid enlargement. No LNs CARDIOVASCULAR: S1, S2 muffled. No murmur RESPIRATION: Breath sounds diminished in the bases. No rhonchi or crackles. ABDOMEN: Soft, nontender . No guarding. no masses palpable. Bowel sounds heard. PSYCHIATRY: Unable to assess at this time, sedated NERVOUS SYSTEM: Diffuse weakness. Microbiology 12/12/17 23:57 Blood Blood Culture - Final No Growth after 144 hours 12/12/17 14:23 Urine,Clean Catch Urine Culture - Final Enterobacter cloacae - Labs CBC & Chem 7: 12/19/17 10:05 12/19/17 10:05 Labs: Abnormal Lab Results - Last 24 Hours (Table) 12/19/17 12/19/17 Range/Units 10:05 10:05 Hgb 11.2 L (11.4-16.0) gm/dL Chloride 114 H (98-107) mmol/L Carbon Dioxide 21 L (22-30) mmol/L Microbiology - Last 24 Hours (Table) 12/12/17 23:57 Blood Culture - Final Blood No Growth after 144 hours Assessment and Plan Assessment: 1. Acute UTI with Enterobacter Clocae, with possible sepsis, present on admission 2. Change in mental status, acute metabolic encephalopathy secondary to sepsis 3. Acute renal failure, possibly acute tubular necrosis secondary to dehydration, improving 4. Dementia with behavioral changes Plan: Continue on current medication regime ,monitoring and symptomatic treatment. Maintain antibiotics, gentle IV fluid hydration.psychiatry reevaluation ordered; UMAIR Wong, adjust medications further to facilitate ECF placement .social staff worker assisting with locating accepting ECFs. The impression and plan of care has been dictated as directed. : I performed a history and examination of this patient, discussed the same with the dictator. I agree with the dictator's note ,documented as a scribe. Any additional findings or plans will be noted.
--- NOTE | 2017-12-19 19:54 | CT ---
EXAMINATION TYPE: CT brain wo con DATE OF EXAM: 12/19/2017 COMPARISON: 12/15/2017 HISTORY: weakness CT DLP: 829.3 mGycm Automated exposure control for dose reduction was used. FINDINGS: There is diffuse cerebral cortical atrophy. There is moderate patchy hypodensity in the periventricul ar white matter. There is no mass effect nor midline shift. There is no sign of intracranial hemorrha ge. The calvarium is intact. IMPRESSION: CEREBRAL ATROPHY AND CHRONIC SMALL VESSEL ISCHEMIA. NO ACUTE INTRACRANIAL ABNORMALITY. NO CHANGE.
[2017-12-19] MEDS: SERTRALINE 100 MG TAB PO SCH (21:53)
[2017-12-19] MEDS: SENNOSIDES 8.6 MG TAB PO SCH (21:57)
[2017-12-19] MEDS: MEMANTINE 5 MG TAB PO SCH (21:57)
[2017-12-20] MEDS: SODIUM CHLORIDE 0.9% 1,000 ML IV SCH ×2 (05:08→19:33)
[2017-12-20 07:54] LABS: Basophils # (A) 0.1 k/uL (0-0.2); Basophils % (A) 1 %; Eosinophils # (A) 0.2 k/uL (0-0.7); Eosinophils % (A) 5 %; HCT 33.3 % (34.0-46.0); HGB 10.9 gm/dL (11.4-16.0); Lymphocytes # (A) 1.4 k/uL (1.0-4.8); Lymphocytes % (A) 27 %; MCH 29.8 pg (25.0-35.0); MCHC 32.7 g/dL (31.0-37.0); MCV 91.3 fL (80.0-100.0); Monocytes # (A) 0.4 k/uL (0-1.0); Monocytes % (A) 7 %; Neutrophils # (A) 3.2 k/uL (1.3-7.7); Neutrophils % (A) 59 %; Platelet Count 314 k/uL (150-450); RBC 3.65 m/uL (3.80-5.40); RDW 13.9 % (11.5-15.5); WBC 5.3 k/uL (3.8-10.6)
[2017-12-20 08:02] LABS: Calcium 9.4 mg/dL (8.4-10.2); Potassium 3.6 mmol/L (3.5-5.1)
[2017-12-20] MEDS: cefTRIAXone IN SWFI 1,000 MG/10 ML SYRINGE IVP SCH (08:46)
[2017-12-20] MEDS: QUEtiapine 25 MG TAB PO SCH ×2 (08:46→19:27)
[2017-12-20] MEDS: busPIRone HCl 10 MG TAB PO SCH ×2 (08:47→19:34)
[2017-12-20] MEDS: PANTOPRAZOLE 40 MG TABLET PO SCH (08:47)
[2017-12-20] MEDS: MINERAL OIL-WHITE PETROLATUM 120 GM JAR TOPICAL SCH ×4 (08:47→19:34)
[2017-12-20] MEDS: HEPARIN SODIUM,PORCINE 5,000 UNIT/ML 1 ML VIAL SQ SCH ×2 (08:47→19:34)
[2017-12-20] MEDS: FOLIC ACID 1 MG TAB PO SCH (12:59)
[2017-12-20] MEDS: MULTIVITAMINS, THERA 1 EACH TAB PO SCH (12:59)
[2017-12-20] MEDS: THIAMINE 100 MG TAB PO SCH (13:00)
[2017-12-20] MEDS: ASPIRIN 81 MG PO SCH ×2 (15:33→15:47)
[2017-12-20] MEDS: MAGNESIUM OXIDE 400 MG TAB PO SCH ×2 (15:33→15:47)
[2017-12-20] MEDS: CHOLECALCIFEROL 1,000 UNIT TAB PO SCH ×2 (15:33→15:47)
[2017-12-20] MEDS: SERTRALINE 100 MG TAB PO SCH (19:27)
[2017-12-20] MEDS: SENNOSIDES 8.6 MG TAB PO SCH (19:34)
[2017-12-20] MEDS: MEMANTINE 5 MG TAB PO SCH (19:34)
[2017-12-20] MEDS ORDERED: hydrOXYzine HCL 50 MG/ML 1 ML VIAL IM STA (20:32)
--- NOTE | 2017-12-20 21:05 | PN ---
PROGRESS NOTE DATE OF SERVICE: 12/20/2017. INTERVAL HISTORY: This 77-year-old woman who was admitted with acute UTI with also confused. The patient is slightly better today. The repeat brain scan showed only cerebral atrophy. No acute changes are noted. No chest pain. No shortness of breath. PHYSICAL EXAM: Patient is conscious, confused. Pulse 78, blood pressure 153/70, respiration 16, temperature 98.4, pulse ox 96% on room air. HEENT: Conjunctivae normal. Oral mucosa moist. Neck is no jugular venous distention. No carotid bruit. No lymph node enlargement. CARDIOVASCULAR: S1, S2. RESPIRATORY: Breath sounds diminished in the bases. A few scattered rhonchi. No crackles. ABDOMEN: Soft, nontender. LEGS: No edema. NERVOUS SYSTEM: No focal deficits. LAB STUDIES: Troponin 0.035. Otherwise hemoglobin is 10.9. ASSESSMENT: 1. Acute urinary tract infection with Enterobacter cloacae with possible sepsis, present on admission. 2. Change in mental status, acute metabolic encephalopathy. 3. Acute renal failure, acute tubular necrosis. 4. Dementia with behavioral changes. 5. Troponin 0.041, indeterminate. 6. NO CODE, NO CPR, NO VENT. 7. Gait dysfunction. RECOMMENDATIONS AND DISCUSSION: This 77-year-old woman with a past medical history of multiple medical problems , we will monitor the patient closely. Continue the current management and symptomatic treatment. At this time I recommend continue with assisted feeds and increase p.o. fluids. PT, OT evaluation, possible ECF rehab. Further recommendations to follow. MMODL / IJN: [id number] / MTDD
[2017-12-21] MEDS ORDERED: hydrOXYzine HCL 50 MG/ML 1 ML VIAL IM STA (00:55)
[2017-12-21] MEDS: ZIPRASIDONE 20 MG VIAL IM PRN ×2 (02:55→15:00)
[2017-12-21 07:12] LABS: Basophils # (A) 0.1 k/uL (0-0.2); Basophils % (A) 1 %; Eosinophils # (A) 0.1 k/uL (0-0.7); Eosinophils % (A) 2 %; HCT 37.5 % (34.0-46.0); HGB 12.1 gm/dL (11.4-16.0); Lymphocytes % (A) 22 %; MCH 28.9 pg (25.0-35.0); MCHC 32.3 g/dL (31.0-37.0); MCV 89.2 fL (80.0-100.0); Mean Platelet Volume 7.2; Monocytes # (A) 0.7 k/uL (0-1.0); Monocytes % (A) 7 %; Neutrophils # (A) 6.2 k/uL (1.3-7.7); Neutrophils % (A) 67 %; Platelet Count 334 k/uL (150-450); RDW 13.9 % (11.5-15.5); WBC 9.2 k/uL (3.8-10.6)
[2017-12-21 07:24] LABS: Calcium 9.7 mg/dL (8.4-10.2); Potassium 3.4 mmol/L (3.5-5.1)
[2017-12-21] MEDS: QUEtiapine 25 MG TAB PO SCH ×2 (08:18→20:11)
[2017-12-21] MEDS: METOPROLOL TARTRATE 25 MG TAB PO SCH ×3 (08:18→21:12)
[2017-12-21] MEDS: cefTRIAXone IN SWFI 1,000 MG/10 ML SYRINGE IVP SCH (08:18)
[2017-12-21] MEDS: PANTOPRAZOLE 40 MG TABLET PO SCH (08:19)
[2017-12-21] MEDS: HEPARIN SODIUM,PORCINE 5,000 UNIT/ML 1 ML VIAL SQ SCH ×2 (08:19→20:12)
[2017-12-21] MEDS: MULTIVITAMINS, THERA 1 EACH TAB PO SCH (08:19)
[2017-12-21] MEDS: FOLIC ACID 1 MG TAB PO SCH (08:19)
[2017-12-21] MEDS: busPIRone HCl 10 MG TAB PO SCH ×2 (08:19→20:11)
[2017-12-21] MEDS: THIAMINE 100 MG TAB PO SCH (08:19)
[2017-12-21] MEDS: SODIUM CHLORIDE 0.9% 1,000 ML IV SCH ×2 (08:20→20:12)
[2017-12-21] MEDS: MINERAL OIL-WHITE PETROLATUM 120 GM JAR TOPICAL SCH ×4 (08:20→20:12)
[2017-12-21] MEDS: POTASSIUM CHLORIDE ER 20 MEQ TAB.ER PO SCH ×2 (09:04→09:54)
[2017-12-21] MEDS ORDERED: Magnesium Replacement Protocol 1 EACH MISC MISCELLANE PRN (09:53)
[2017-12-21] MEDS: MAGNESIUM SULFATE-D5W PMX 1 GM in DEXTROSE/WATER 1 100ML.BAG IVPB SCH ×2 (10:06→11:49)
--- NOTE | 2017-12-21 15:55 | PN ---
PROGRESS NOTE DATE OF SERVICE: 12/21/2017 This 77-year-old woman admitted with UTI with possible sepsis, also had Enterobacter cloacae grown from the culture. Patient is on IV antibiotics. Patient continues to have behavioral abnormalities, possibly related to dementia as well. Last night also the patient was combative and needed Geodon and psychiatry is also on consult at this time. The patient had atrial fibrillation with fast ventricular rate. Patient was monitored closely. Conservative line of management. Cardiology has been consulted. The patient is on beta bonnie at this time, started on beta blockers. PAST MEDICAL HISTORY: Reviewed. REVIEW OF SYSTEMS: Could not be taken. The patient is confused. CURRENT MEDICATIONS: 1. Tylenol 500 mg q.6h p.r.n. 2. Aspirin 81 mg. 3. BuSpar 10 mg p.o. b.i.d. 4. Rocephin 1 g daily. 5. Vitamin D3 2000 daily. 6. Folic acid 1 mg. 7. Haldol 50 mg IM q.28 days. 8. Heparin 5000 subcu b.i.d. 9. Namenda. 10.Lopressor. 11.Eucerin. 12.Narcan. 13.Protonix. 14.Senokot. 15.Vitamin B1. 16.Geodon p.r.n. PHYSICAL EXAM: Patient is alert and disoriented. Pulse is 126 irregular, blood pressure 123/82, respirations 16, temperature 98.2, pulse ox 97% on room air. HEENT: Conjunctivae normal. Oral mucosa moist. NECK: No jugular venous distention. No carotid bruit. No lymph node enlargement. CARDIOVASCULAR: S1, S2. RESPIRATORY: Breath sounds diminished in the bases. A few scattered rhonchi and crackles. ABDOMEN: Soft, nontender. No mass palpable. LEGS: No edema, no swelling. NERVOUS SYSTEM: Higher functions as mentioned earlier. Moves all 4 limbs. No focal motor sensory deficit. LYMPHATICS: No lymphadenopathy in the neck, axillae, groin. SKIN: No ulcer, rash or bleeding. LABS: WBC 9.2, hemoglobin 12.1. Troponin 0.04. Potassium 3.4 and 4.2. Magnesium was to 1.8. ASSESSMENT: 1. Acute urinary tract infection with Enterobacter cloacae with possible sepsis, present on admission. 2. Change in mental status acute metabolic encephalopathy, present on admission. 3. Atrial fibrillation with fast ventricular rate. 4. Acute renal failure with acute tubular necrosis. 5. Dementia with behavior change. 6. Troponin 0.01 indeterminate. 7. Gait dysfunction. 8. NO CODE, NO CPR, NO VENT. RECOMMENDATIONS AND DISCUSSION: I recommend to continue current management, continue with monitoring, continue with beta blockers. Otherwise, continue DVT prophylaxis. 2D echo with Doppler. Follow closely with Cardiology. Cautious IV fluids, encourage fluids. PT, OT evaluation. Social work. Closely follow with Psychiatry and social worker aide case management for discharge planning. Further recommendations to follow. MMODL / IJN: [id number] /
[2017-12-21] MEDS: CHOLECALCIFEROL 1,000 UNIT TAB PO SCH (15:58)
[2017-12-21] MEDS: MAGNESIUM OXIDE 400 MG TAB PO SCH (15:58)
[2017-12-21] MEDS: ASPIRIN 81 MG PO SCH (15:59)
[2017-12-21] MEDS: SERTRALINE 100 MG TAB PO SCH (20:11)
[2017-12-21] MEDS: DIVALPROEX 250 MG TABLET.DR PO SCH (20:11)
[2017-12-21] MEDS: MEMANTINE 5 MG TAB PO SCH (20:11)
[2017-12-21] MEDS: SENNOSIDES 8.6 MG TAB PO SCH (20:12)
--- NOTE | 2017-12-21 22:13 | PN ---
PROGRESS NOTE DATE OF SERVICE: 12/21/2017 INTERVAL HISTORY: I have been called multiple times over the last 24 hours regarding the patient' s agitation, she has been given 2 IM of Vistaril. Sounds like, per history, the first one was more benefit than the second one. The patient has continued to have some difficulties with agitation. She has been at times noncompliant with her medications as ordered. She is currently on BuSpar 10 mg b.i.d. She was given 1 injection of Haldol Decanoate 50 mg IM on 12/13. She is also on Seroquel 75 mg b.i.d., Zoloft 100 mg q.h.s. The patient presents today, alert, not currently agitated. She seems to describe that her mood is doing okay. She denies any thoughts of harm to self or others. Her answers are very brief. She is not oriented to place or date. PLAN/RECOMMENDATIONS: I talked with one of her daughters initially and discussed the use of Depakote to help with agitation. She deferred to another daughter, Megan, who I did talk with and also recommended Depakote. She was agreeable to starting Depakote 125 mg b.i.d. to help with agitation. At this time I would avoid any further anti psychotic as she is on Seroquel and she has been given a long-acting IM of Haldol Decanoate. Psychiatry can follow up and monitor in terms of agitation and monitor how she is responding to the Depakote. MMCHAPARRITA / YAN: [id number] / MTDD
[2017-12-22] MEDS: QUEtiapine 25 MG TAB PO SCH ×2 (08:18→22:20)
[2017-12-22] MEDS: busPIRone HCl 10 MG TAB PO SCH ×2 (08:18→22:20)
[2017-12-22] MEDS: cefTRIAXone IN SWFI 1,000 MG/10 ML SYRINGE IVP SCH (08:18)
[2017-12-22] MEDS: METOPROLOL TARTRATE 25 MG TAB PO SCH ×2 (08:19→22:20)
[2017-12-22] MEDS: MULTIVITAMINS, THERA 1 EACH TAB PO SCH (08:19)
[2017-12-22] MEDS: PANTOPRAZOLE 40 MG TABLET PO SCH (08:19)
[2017-12-22] MEDS: FOLIC ACID 1 MG TAB PO SCH (08:19)
[2017-12-22] MEDS: DIVALPROEX 250 MG TABLET.DR PO SCH ×2 (08:19→22:20)
[2017-12-22] MEDS: HEPARIN SODIUM,PORCINE 5,000 UNIT/ML 1 ML VIAL SQ SCH (08:20)
[2017-12-22] MEDS: SODIUM CHLORIDE 0.9% 1,000 ML IV SCH (08:20)
[2017-12-22] MEDS: MINERAL OIL-WHITE PETROLATUM 120 GM JAR TOPICAL SCH ×3 (08:30→16:02)
[2017-12-22 09:17] LABS: Calcium 9.2 mg/dL (8.4-10.2); Magnesium 2.1 mg/dL (1.6-2.3); Potassium 3.9 mmol/L (3.5-5.1)
--- NOTE | 2017-12-22 09:52 | P.DS ---
Providers Date of admission: 12/13/17 08:47 Expected date of discharge: 12/22/17 Attending physician: Simone Langford Consults: 12/12/17 16:56 Consult Physician Routine Consulting Provider: Adam Colvin Consult Reason/Comments: Dementia Do you want consulting provider notified?: Already Contacted 12/12/17 22:46 Consult Physician Routine Consulting Provider: Arcenio Lara Consult Reason/Comments: confusion/agression/dementia Do you want consulting provider notified?: Yes, Notify in am 12/19/17 19:11 Consult Physician Urgent Consulting Provider: Arcenio Lara Consult Reason/Comments: new onset generalized severe weakness Do you want consulting provider notified?: Yes 12/21/17 05:51 Consult Physician Urgent Consulting Provider: Britt Rothman Consult Reason/Comments: New afib Do you want consulting provider notified?: Yes Primary care physician: Omar Conn Hospital Course: Final Diagnoses: 1. Acute UTI with Enterobacter Clocae, with possible sepsis, present on admission 2. Change in mental status, acute metabolic encephalopathy secondary to sepsis 3. Acute renal failure, possibly acute tubular necrosis secondary to dehydration, improved 4. Dementia with behavioral changes Hospital course:This is a 77-year-old female admitted with acute UTI with Enterobacter Clocae, possible sepsis, metabolic encephalopathy secondary sepsis , acute renal failure and multiple other medical issues. Maintained on IV antibiotics, gentle IV fluid hydration. Renal function improving. Evaluated by psychiatry with medications adjusted. Significant clinical improvement. Cleared by consults for discharge. Patient is being discharged to an [facility] in a stable condition with guarded prognosis. EXAM: GENERAL: Sitting up in chair, alert and oriented 1, pleasantly confused, cooperative CARDIOVASCULAR: S1, S2 muffled. No murmur RESPIRATION: Breath sounds diminished in the bases. No rhonchi or crackles. ABDOMEN: Soft, nontender . Bowel sounds heard. NERVOUS SYSTEM: Diffuse weakness. Microbiology 12/12/17 23:57 Blood Blood Culture - Final No Growth after 144 hours 12/12/17 14:23 Urine,Clean Catch Urine Culture - Final Enterobacter cloacae The impression and plan of care has been dictated as directed. : I performed a history and examination of this patient, discussed the same with the dictator. I agree with the dictator's note ,documented as a scribe. Any additional findings or plans will be noted. Time taken: 35 minutes Patient Condition at Discharge: Stable Plan - Discharge Summary Discharge Rx Participant: No New Discharge Prescriptions: New Acetaminophen Tab [Tylenol] 500 mg PO Q6HR PRN #20 tab PRN Reason: Fever And/ Or Pain Divalproex [Depakote] 125 mg PO BID #30 tablet. Folic Acid 1 mg PO DAILY@1200 #30 tab Metoprolol Tartrate [Lopressor] 25 mg PO TID #90 tab Multivitamins, Thera [Multivitamin (formulary)] 1 each PO DAILY@1200 #30 tab QUEtiapine [SEROquel] 75 mg PO BID #180 tab Thiamine [Vitamin B-1] 100 mg PO DAILY@1200 #30 tab Continue Aspirin 81 mg PO DAILY@1600 #30 chew busPIRone HCl [Buspar] 10 mg PO BID #60 tab Cholecalciferol [Vitamin D3] 1,000 unit PO DAILY@1600 #30 tab Eucerin Cream 1 applic TOPICAL QID #1 tube Magnesium Oxide [Mag-Ox] 200 mg PO DAILY@1600 #15 tab Memantine [Namenda] 5 mg PO HS #30 tab Omeprazole 20 mg PO DAILY #30 capsule. Sennosideyonatan [Senna] 17.2 mg PO HS #60 tablet Sertraline [Zoloft] 100 mg PO HS #30 tab Discontinued QUEtiapine FUMARATE [SEROquel XR] 150 mg PO HS Discharge Medication List Acetaminophen Tab [Tylenol] 500 mg PO Q6HR PRN #20 tab 12/22/17 [Rx] Aspirin 81 mg PO DAILY@1600 #30 chew 12/22/17 [Rx] Cholecalciferol [Vitamin D3] 1,000 unit PO DAILY@1600 #30 tab 12/22/17 [Rx] Divalproex [Depakote] 125 mg PO BID #30 tablet. 12/22/17 [Rx] Eucerin Cream 1 applic TOPICAL QID #1 tube 12/22/17 [Rx] Folic Acid 1 mg PO DAILY@1200 #30 tab 12/22/17 [Rx] Magnesium Oxide [Mag-Ox] 200 mg PO DAILY@1600 #15 tab 12/22/17 [Rx] Memantine [Namenda] 5 mg PO HS #30 tab 12/22/17 [Rx] Metoprolol Tartrate [Lopressor] 25 mg PO TID #90 tab 12/22/17 [Rx] Multivitamins, Thera [Multivitamin (formulary)] 1 each PO DAILY@1200 #30 tab 01/29 [Rx] Omeprazole 20 mg PO DAILY #30 capsule. 12/22/17 [Rx] QUEtiapine [SEROquel] 75 mg PO BID #180 tab 12/22/17 [Rx] Sennosides [Senna] 17.2 mg PO HS #60 tablet 12/22/17 [Rx] Sertraline [Zoloft] 100 mg PO HS #30 tab 12/22/17 [Rx] Thiamine [Vitamin B-1] 100 mg PO DAILY@1200 #30 tab 12/22/17 [Rx] busPIRone HCl [Buspar] 10 mg PO BID #60 tab 12/22/17 [Rx] Follow up Appointment(s)/Referral(s): Dr. FABIENNE Psychiatry [Other] - 1 Week Omar Conn MD [Primary Care Provider] - 3 Days Arcenio Lara MD [STAFF PHYSICIAN] - 2 Weeks Ambulatory/Diagnostic Orders: Complete Blood Count w/diff [LAB.AMB] Time Frame: 3 Days, Location: None Selected Magnesium [LAB.AMB] Time Frame: 3 Days, Location: None Selected Patient Instructions/Handouts: Urinary Tract Infection in Older Adults (DC) Activity/Diet/Wound Care/Special Instructions: COnfirm Cardiology F/U apt. prior to dc Regular diet. Activity as tolerated, fall precautions. Change positions every 2 hours. DNR code status.
[2017-12-22] MEDS: APIXABAN 2.5 MG TABLET PO SCH ×2 (11:25→22:19)
[2017-12-22] MEDS: THIAMINE 100 MG TAB PO SCH (11:25)
--- NOTE | 2017-12-22 12:09 | ECHOF ---
Referral Reason:New Afib MEASUREMENTS -------- HEIGHT: 152.4 cm WEIGHT: 79.4 kg BP: RVIDd: 2.9 cm (< 3.3) IVSd: 1.0 cm (0.6 - 1.1) LVIDd: 5.1 cm (3.9 - 5.3) LVPWd: 1.1 cm (0.6 - 1.1) IVSs: 1.5 cm LVIDs: 3.6 cm LVPWs: 1.5 cm LA Diam: 3.2 cm (2.7 - 3.8) LAESV Index (A-L): 29.59 ml/m Ao Diam: 3.1 cm (2.0 - 3.7) AV Cusp: 1.8 cm (1.5 - 2.6) MV EXCURSION: 13.015 mm (> 18.000) MV EF SLOPE: 106 mm/s (70 - 150) EPSS: 0.8 cm MV E Tobias: 1.07 m/s MV DecT: 250 ms MV A Tobias: 1.16 m/s MV E/A Ratio: 0.93 FINDINGS -------- Sinus rhythm. This was a technically good study. The left ventricular size is normal. Left ventricular wall thickness is normal. Overall left vent ricular systolic function is low-normal with, an EF between 50 - 55 %. Basal inferior LV wall motio n is dyskinetic. Basal inferoseptal LV wall motion is hypokinetic. The right ventricle is normal in size. LA is midly dilated 29-33ml/m2. The right atrium is normal in size. There is mild aortic valve sclerosis. The mitral valve leaflets are mildly thickened. Mild mitral annular calcification present. Mild m itral regurgitation is present. The tricuspid valve appears structurally normal. There is no pulmonic regurgitation present. The aortic root size is normal. The inferior vena cava is dilated with poor inspiratory collapse which is consistent with estimated r ight atrial pressure of 15 mmHg. There is no pericardial effusion. CONCLUSIONS -------- 1. Sinus rhythm. 2. This was a technically good study. 3. The left ventricular size is normal. 4. Left ventricular wall thickness is normal. 5. Overall left ventricular systolic function is low-normal with, an EF between 50 - 55 %. 6. Basal inferior LV wall motion is dyskinetic. 7. Basal inferoseptal LV wall motion is hypokinetic. 8. The right ventricle is normal in size. 9. LA is midly dilated 29-33ml/m2. 10. The right atrium is normal in size. 11. There is mild aortic valve sclerosis. 12. The mitral valve leaflets are mildly thickened. 13. Mild mitral annular calcification present. 14. Mild mitral regurgitation is present. 15. The tricuspid valve appears structurally normal. 16. There is no pulmonic regurgitation present. 17. The aortic root size is normal. 18. The inferior vena cava is dilated with poor inspiratory collapse which is consistent with estimat ed right atrial pressure of 15 mmHg. 19. There is no pericardial effusion. CHARGE OPERATOR: Tala Gibbons RDCS
--- NOTE | 2017-12-22 13:36 | P.CRDCN ---
History of Present Illness History of present illness: Mrs. Ulloa is a pleasant 77-year-old female past medical history significant for dyslipidemia, gastroesophageal reflux disease and dementia. She has a poor historian and information is obtained from the chart. We have been asked to see her in consultation for new onset atrial fibrillation. She is currently admitted to the hospital with urinary tract infection with sepsis and metabolic encephalopathy. She is currently receiving IV antibiotics and prepared for discharge to [facility]. She has seen and examined sitting comfortably in bed in no acute distress. She denies ever having any symptoms of chest pain , palpitations, dizziness, shortness of breath, nausea, vomiting or diaphoresis. EKG on admission 12/13 revealed sinus mechanism with no acute ST or T -wave abnormalities with poor R-wave progression noted as well as first degree AV Block. EKG obtained 12/22 showed atrial fibrillation with rate 124. Laboratory data reviewed, hgb 12.1, plt 334, sodium 141, potassium 3.9, magnesium 2.1, creatinine 0.98, troponin 0.035, 0.029 and 0.044. She was started on lopressor 25 mg TID. Echocardiogram obtained revealed preserved LV systolic function with EF 50-55%, mildly dilated LA, mild aortic valve sclerosis and mild MR. Inferior vena cava is dilated with poor inspiratory collapse. Review of Systems At the time of my exam: Patient seems to be pleasantly confused, denies all complaints. CONSTITUTIONAL: Denies fever. Denies chills. EYES: Denies blurred vision. Denies vision changes. Denies eye pain. EARS, NOSE, MOUTH & THROAT: Denies headache. Denies sore throat. Denies ear pain. CARDIOVASCULAR: Denies chest pain. Denies shortness of breath. Denies orthopnea. Denies PND. Denies palpitations. RESPIRATORY: Denies cough. GASTROINTESTINAL: Denies abdominal pain. Denies diarrhea. Denies constipation. Denies nausea. Denies vomiting. MUSCULOSKELETAL: Denies myalgias. INTEGUMENTARY: Denies pruitis. Denies rash. NEUROLOGIC: Denies numbness. Denies tingling. Denies weakness. PSYCHIATRIC: Denies anxiety. Denies depression. ENDOCRINE: Denies fatigue. Denies weight change. Denies polydipsia. Denies polyurina. GENITOURINARY: Denies burning, hematuria or urgency with micturation. HEMATOLOGIC: Denies history of anemia. Denies bleeding. ROS unobtainable: due to mental status Past Medical History Past Medical History: Dementia, GERD/Reflux, Hyperlipidemia, Memory Impairment Additional Past Medical History / Comment(s): pt is a poor historian,info came from pt's daughter/dpoa yvonne. past fall, anxiety, constipation, uti's some incon of urine History of Any Multi-Drug Resistant Organisms: None Reported Past Surgical History: Bladder Surgery, Breast Surgery, Cholecystectomy, Hysterectomy Additional Past Surgical History / Comment(s): cataracts, brest reduction,tummy tuck,baldder supsension Past Anesthesia/Blood Transfusion Reactions: Previous Problems w/ Anesthesia Additional Past Anesthesia/Blood Transfusion Reaction / Comment(s): difficult time waking after sx and low heart rate Smoking Status: Never smoker - Past Family History Father Family Medical History: No Reported History Additional Family Medical History / Comment(s): from old age Mother Family Medical History: Cancer Additional Family Medical History / Comment(s): lung cancer Medications and Allergies Home Medications Medication Instructions Recorded Confirmed Type Acetaminophen Tab [Tylenol] 500 mg PO Q6HR PRN #20 tab 12/22/17 Rx Apixaban [Eliquis] 2.5 mg PO BID tablet 12/22/17 Rx Aspirin 81 mg PO DAILY@1600 #30 chew 12/22/17 Rx Cholecalciferol [Vitamin D3] 1,000 unit PO DAILY@1600 #30 tab 12/22/17 Rx Divalproex [Depakote] 125 mg PO BID #30 tablet. 12/22/17 Rx Eucerin Cream 1 applic TOPICAL QID #1 tube 12/22/17 Rx Folic Acid 1 mg PO DAILY@1200 #30 tab 12/22/17 Rx LORazepam [Ativan] 1 mg PO Q6H PRN #10 tab 12/22/17 Rx Magnesium Oxide [Mag-Ox] 200 mg PO DAILY@1600 #15 tab 12/22/17 Rx Memantine [Namenda] 5 mg PO HS #30 tab 12/22/17 Rx Metoprolol Tartrate [Lopressor] 25 mg PO BID tab 12/22/17 Rx Multivitamins, Thera [Multivitamin 1 each PO DAILY@1200 #30 tab 12/22/17 Rx (formulary)] Omeprazole 20 mg PO DAILY #30 capsule. 12/22/17 Rx QUEtiapine [SEROquel] 75 mg PO BID #180 tab 12/22/17 Rx Sennosides [Senna] 17.2 mg PO HS #60 tablet 12/22/17 Rx Sertraline [Zoloft] 100 mg PO HS #30 tab 12/22/17 Rx Thiamine [Vitamin B-1] 100 mg PO DAILY@1200 #30 tab 12/22/17 Rx busPIRone HCl [Buspar] 10 mg PO BID #60 tab 12/22/17 Rx Allergies Allergy/AdvReac Type Severity Reaction Status Date / Time lorazepam Allergy Unknown Verified 12/12/17 13:22 Physical Exam Vitals: Vital Signs Temp Pulse Resp BP Pulse Ox 12/22/17 08:00 63 20 12/22/17 06:23 98.2 F 63 20 134/64 99 12/21/17 22:40 99.0 F 77 16 132/64 97 12/21/17 15:10 78 16 12/21/17 14:38 98.4 F 78 16 130/64 100 Intake and Output 12/21/17 12/22/17 12/22/17 22:59 06:59 14:59 Other: Voiding Method Bedpan Bedpan # Voids 1 3 # Bowel Movements 1 Weight 79.379 kg Blood pressure 134/64 heart rate 63 afebrile maintaining oxygen saturation on room air GENERAL: This is a 77-year-old female in no apparent distress at the time of my examination. HEENT: Head is atraumatic, normocephalic. Pupils are equal, round. Sclerae anicteric. Conjunctivae are clear. Mucous membranes of the mouth are moist. Neck is supple. There is no jugular venous distention. No carotid bruit is heard. LUNGS: Clear to auscultation no wheezes, rales or rhonchi. No chest wall tenderness is noted on palpation or with deep breathing. HEART: Regular rate and rhythm without murmurs, rubs or gallops. S1 and S2 heard. ABDOMEN: Soft, nontender. Bowel sounds are heard. No organomegaly noted. EXTREMITIES: No evidence of peripheral edema and no calf tenderness noted. VASCULAR: Radial and dorsalis pedis pulses palpated, no evidence of clubbing. NEUROLOGIC: Patient is awake, alert and oriented x3. Results 12/21/17 06:22 12/22/17 08:29 Comprehensive Metabolic Panel 12/21/17 12/22/17 Range/Units 12:36 08:29 Sodium 141 (137-145) mmol/L Potassium 4.2 3.9 (3.5-5.1) mmol/L Chloride 112 H (98-107) mmol/L Carbon Dioxide 22 (22-30) mmol/L BUN 12 (7-17) mg/dL Creatinine 0.98 (0.52-1.04) mg/dL Glucose 95 (74-99) mg/dL Calcium 9.2 (8.4-10.2) mg/dL Current Medications Generic Name Dose Route Start Last Admin Trade Name Freq PRN Reason Stop Dose Admin Acetaminophen 500 mg 12/12/17 23:26 12/16/17 17:05 Tylenol Tab PO 500 mg Q6HR PRN Administration Fever and/ or Pain Apixaban 2.5 mg 12/22/17 11:15 Eliquis PO BID BRENDON Aspirin 81 mg 12/13/17 16:00 12/21/17 15:59 Aspirin PO 81 mg DAILY@1600 BRENDON Administration Buspirone HCl 10 mg 12/12/17 21:00 12/22/17 08:18 Buspar PO 10 mg BID BRENDON Administration Ceftriaxone Sodium 1,000 mg 12/13/17 09:00 12/22/17 08:18 Rocephin IVP 1,000 mg Q24HR BRENDON Administration Cholecalciferol 1,000 unit 12/13/17 16:00 12/21/17 15:58 Vitamin D3 PO 1,000 unit DAILY@1600 BRENDON Administration Divalproex Sodium 125 mg 12/21/17 21:00 12/22/17 08:19 Depakote PO 125 mg BID BRENDON Administration Folic Acid 1 mg 12/19/17 12:00 12/22/17 08:19 Folic Acid PO 1 mg DAILY@1200 BRENDON Administration Haloperidol Decanoate 50 mg 12/13/17 19:00 12/13/17 20:09 Haldol D IM 50 mg Q28D BRENDON Administration Sodium Chloride 1,000 mls @ 75 mls/hr 12/15/17 12:30 12/22/17 08:20 Saline 0.9% IV 75 mls/hr .[id number] BRENDON Administration Magnesium Oxide 200 mg 12/13/17 16:00 12/21/17 15:58 Mag-Ox PO 200 mg DAILY@1600 BRENDON Administration Memantine 5 mg 12/12/17 21:00 12/21/17 20:11 Namenda PO 5 mg HS BRENDON Administration Metoprolol Tartrate 25 mg 12/22/17 21:00 Lopressor PO BID BRENDON Miscellaneous Information 1 each 12/19/17 09:24 Potassium Per Protocol MISCELLANE DAILY PRN Per Protocol Protocol Miscellaneous Information 1 each 12/21/17 09:53 Magnesium Per Protocol MISCELLANE DAILY PRN Per Protocol Protocol Multi-Ingred Cream/Lotion/Oil/Oint 1 applic 12/12/17 18:00 12/22/17 08:30 Eucerin Cream TOPICAL Not Given QID [facility] Multivitamins 1 each 12/19/17 12:00 12/22/17 08:19 Theragran PO 1 each DAILY@1200 BRENDON Administration Naloxone HCl 0.2 mg 12/12/17 16:54 Narcan IV Q2M PRN Opioid Reversal Pantoprazole Sodium 40 mg 12/13/17 07:30 12/22/17 08:19 Protonix PO 40 mg [id number] BRENDON Administration Quetiapine Fumarate 75 mg 12/12/17 21:00 12/22/17 08:18 Seroquel PO 75 mg BID BRENDON Administration Senna 17.2 mg 12/12/17 21:00 12/21/17 20:12 Senokot PO Not Given HS BRENDON Sertraline HCl 100 mg 12/12/17 21:00 12/21/17 20:11 Zoloft PO 100 mg HS BRENDON Administration Thiamine HCl 100 mg 12/19/17 12:00 12/21/17 08:19 Vitamin B-1 PO 100 mg DAILY@1200 BRENDON Administration Intake and Output 12/21/17 12/22/17 12/22/17 22:59 06:59 14:59 Other: Voiding Method Bedpan Bedpan # Voids 1 3 # Bowel Movements 1 Weight 79.379 kg Patient Weight 12/23/17 06:59 Weight 79.379 kg 12/21/17 06:22 12/22/17 08:29 Assessment and Plan Assessment: ASSESSMENT New onset paroxysmal atrial fibrillation, converted back to sinus mechanism Urinary tract infection with sepsis Metabolic encephalopathy Dyslipidemia Dementia Gastroesophageal reflux disease. PLAN Check TSH and free T4. Change beta bonnie to 25 mg BID and start her on Eliquis 2.5 mg BID for embolic stroke prevention. Echo has been obtained and reviewed. Stable from a cardiac perspective. Follow up with Dr. Stanton in 2-3 weeks. Thank you kindly for this consultation. Nurse Practitioner note has been reviewed, I agree with a documented findings and plan of care. Patient was seen and examined.
[2017-12-22 15:05] LABS: Basophils # (A) 0.1 k/uL (0-0.2); Basophils % (A) 1 %; Eosinophils # (A) 0.3 k/uL (0-0.7); Eosinophils % (A) 4 %; HCT 33.1 % (34.0-46.0); HGB 10.5 gm/dL (11.4-16.0); Hypochromasia Slight; Lymphocytes # (A) 1.5 k/uL (1.0-4.8); Lymphocytes % (A) 20 %; MCH 29.4 pg (25.0-35.0); MCHC 31.6 g/dL (31.0-37.0); MCV 92.9 fL (80.0-100.0); Mean Platelet Volume 7.8; Monocytes # (A) 0.5 k/uL (0-1.0); Monocytes % (A) 6 %; Neutrophils # (A) 5.3 k/uL (1.3-7.7); Neutrophils % (A) 68 %; Platelet Count 309 k/uL (150-450); RBC 3.56 m/uL (3.80-5.40); RDW 14.1 % (11.5-15.5); WBC 7.7 k/uL (3.8-10.6)
--- NOTE | 2017-12-22 15:59 | P.PN ---
Subjective Progress Note Date: 12/22/17 Progress note being dictated for Dr. Bianchi Interval history: This is a 77-year-old female admitted with acute UTI with Enterobacter Clocae, possible sepsis, metabolic encephalopathy secondary sepsis , acute renal failure and multiple other medical issues. Maintained on IV antibiotics, gentle IV fluid hydration. Renal function improving. Evaluated by psychiatry with recommendations noted. PRN Geodon with significant clinical improvement. Soft restraints are off. Cooperative. Diet intake fair. Sitter at bedside. 12/17/2017 remain sitter free. Diet intake improving. Cooperative, pleasantly confused. Afebrile, normal WBC. Creatinine 0.95. Has not required any Haldol for Geodon, last night or today. 12/18/2017 maintained on IV antibiotics for acute UTI .sitting up in chair, eating lunch. No nausea vomiting or diarrhea. Denies abdominal pain. Required Haldol early this a.m. for agitation/combativeness. Currently Calm, Cooperative, conversing. Afebrile. Denies chest pain, palpitations or shortness of breath. Denies lightheadedness dizziness or focal deficits. 12/19/2017 continues on IV antibiotics. Required Haldol earlier this morning, currently sedated. Renal function significantly improved. Afebrile. 12/22/17 reevaluated over the weekend by psychiatry, Depakote added to med regime with significant clinical improvement. Calm, cooperative. Echo reporting low normal LV function, EF 50-55%.EKG reporting atrial fibrillation, heart rates in the 120s. Magnesium 2.1 .troponins 0.035, 0.0-9 and 0.044 .evaluated by cardiology, Eliquis and Lopressor. Completed antibiotic regimen and will not need further antibiotics at discharge regarding UTI. Objective - Vital Signs Vital signs: Vital Signs Temp 97.5 F L 12/22/17 14:30 Pulse 63 12/22/17 14:30 Resp 16 12/22/17 15:17 BP 134/63 12/22/17 14:30 Pulse Ox 98 12/22/17 14:30 Intake & Output 12/21/17 12/22/17 12/22/17 18:59 06:59 18:59 Intake Total 200 300 Balance 200 300 Weight 79.379 kg Intake: Oral 200 300 Other: Voiding Method Bedpan Bedpan # Voids 2 3 2 # Bowel Movements 0 1 1 - Exam PHYSICAL EXAM: VITAL SIGNS: As above GENERAL: Sitting up in bed, no acute distress HEENT: Conjunctivae normal. eyes normal. Oral mucosa moist NECK: No JVD. No thyroid enlargement. No LNs CARDIOVASCULAR: S1, S2 muffled. No murmur RESPIRATION: Breath sounds diminished in the bases. No rhonchi or crackles. ABDOMEN: Soft, nontender . No guarding. no masses palpable. Bowel sounds heard. PSYCHIATRY: Unable to assess at this time, sedated NERVOUS SYSTEM: Diffuse weakness. Microbiology 12/12/17 23:57 Blood Blood Culture - Final No Growth after 144 hours 12/12/17 14:23 Urine,Clean Catch Urine Culture - Final Enterobacter cloacae - Labs CBC & Chem 7: 12/22/17 08:29 12/22/17 08:29 Labs: Abnormal Lab Results - Last 24 Hours (Table) 12/22/17 12/22/17 Range/Units 08:29 08:29 RBC 3.56 L (3.80-5.40) m/uL Hgb 10.5 L (11.4-16.0) gm/dL Hct 33.1 L (34.0-46.0) % Chloride 112 H (98-107) mmol/L Assessment and Plan Assessment: 1. Acute UTI with Enterobacter Clocae, with possible sepsis, present on admission 2. Change in mental status, acute metabolic encephalopathy secondary to sepsis 3. Acute renal failure, possibly acute tubular necrosis secondary to dehydration, improving 4. Dementia with behavioral changes 5. New onset paroxysmal atrial fibrillation with RVR. Plan: Continue on current medication regime ,monitoring and symptomatic treatment. Eliquis and beta bonnie added to med regime. Cleared by cardiology for discharge. Close monitoring of blood pressure, electrolytes with repeat labs ordered for a.m. Discharge planning in progress for tomorrow to [facility]. The impression and plan of care has been dictated as directed. : I performed a history and examination of this patient, discussed the same with the dictator. I agree with the dictator's note ,documented as a scribe. Any additional findings or plans will be noted.
[2017-12-22] MEDS: ASPIRIN 81 MG PO SCH (16:02)
[2017-12-22] MEDS: MAGNESIUM OXIDE 400 MG TAB PO SCH (16:02)
[2017-12-22] MEDS: CHOLECALCIFEROL 1,000 UNIT TAB PO SCH (16:02)
[2017-12-22] MEDS: SERTRALINE 100 MG TAB PO SCH (22:20)
[2017-12-22] MEDS: SENNOSIDES 8.6 MG TAB PO SCH (22:20)
[2017-12-22] MEDS: MEMANTINE 5 MG TAB PO SCH (22:20)
[2017-12-23] MEDS: SODIUM CHLORIDE 0.9% 1,000 ML IV SCH ×2 (05:39→11:23)
[2017-12-23] MEDS: PANTOPRAZOLE 40 MG TABLET PO SCH (07:59)
[2017-12-23] MEDS: APIXABAN 2.5 MG TABLET PO SCH (07:59)
[2017-12-23] MEDS: busPIRone HCl 10 MG TAB PO SCH ×2 (07:59→21:40)
[2017-12-23] MEDS: DIVALPROEX 250 MG TABLET.DR PO SCH ×2 (08:00→21:40)
[2017-12-23] MEDS: QUEtiapine 25 MG TAB PO SCH ×2 (08:01→21:41)
[2017-12-23] MEDS: METOPROLOL TARTRATE 25 MG TAB PO SCH ×2 (08:01→21:41)
[2017-12-23] MEDS ORDERED: LORazepam 2 MG/ML INJ IM STA (09:51)
[2017-12-23] MEDS: FOLIC ACID 1 MG TAB PO SCH (11:22)
[2017-12-23] MEDS: MULTIVITAMINS, THERA 1 EACH TAB PO SCH (11:23)
[2017-12-23] MEDS: THIAMINE 100 MG TAB PO SCH (11:23)
--- NOTE | 2017-12-23 14:27 | P.PN ---
Subjective Mrs. Ulloa is seen laying flat in bed behaving hysterically. She is crying uncontrollably. She is refusing to allow an exam and is requiring the staff to give her IM haldol for agitation. Blood pressure 144/76 heart rate 87 afebrile maintaining oxygen saturation on room air. Laboratory data obtained today. TSH obtained yesterday 1.75. Objective - Vital Signs Vital signs: Vital Signs Temp 98.9 F 12/23/17 06:08 Pulse 87 12/23/17 06:08 Resp 16 12/23/17 06:08 BP 144/76 12/23/17 06:08 Pulse Ox 97 12/23/17 06:08 Intake & Output 12/22/17 12/23/17 12/23/17 18:59 06:59 18:59 Intake Total 300 Balance 300 Weight 79.379 kg Intake: Oral 300 Other: Voiding Method Bedpan # Voids 1 2 # Bowel Movements 1 - Exam Pt refuses exam - Labs CBC & Chem 7: 12/22/17 08:29 12/22/17 08:29 Labs: Abnormal Lab Results - Last 24 Hours (Table) 12/22/17 Range/Units 08:29 RBC 3.56 L (3.80-5.40) m/uL Hgb 10.5 L (11.4-16.0) gm/dL Hct 33.1 L (34.0-46.0) % Assessment and Plan Assessment: ASSESSMENT New onset paroxysmal atrial fibrillation, converted back to sinus mechanism Urinary tract infection with sepsis Metabolic encephalopathy Dyslipidemia Dementia Gastroesophageal reflux disease. PLAN Eliquis can be discontinued secondary to combative nature and requiring IM injections. There is a risk of thrombolic event if not anticoagulated. This has been discussed with her daughter and Power of Type Mapper Nidhi. Stable from a cardiac perspective. Nurse Practitioner note has been reviewed, I agree with a documented findings and plan of care. Patient was seen and examined.
--- NOTE | 2017-12-23 17:01 | P.PN ---
Subjective Progress Note Date: 12/23/17 Progress note being dictated for Dr. Bianchi Interval history: This is a 77-year-old female admitted with acute UTI with Enterobacter Clocae, possible sepsis, metabolic encephalopathy secondary sepsis , acute renal failure and multiple other medical issues. Maintained on IV antibiotics, gentle IV fluid hydration. Renal function improving. Evaluated by psychiatry with recommendations noted. PRN Geodon with significant clinical improvement. Soft restraints are off. Cooperative. Diet intake fair. Sitter at bedside. 12/17/2017 remain sitter free. Diet intake improving. Cooperative, pleasantly confused. Afebrile, normal WBC. Creatinine 0.95. Has not required any Haldol for Geodon, last night or today. 12/18/2017 maintained on IV antibiotics for acute UTI .sitting up in chair, eating lunch. No nausea vomiting or diarrhea. Denies abdominal pain. Required Haldol early this a.m. for agitation/combativeness. Currently Calm, Cooperative, conversing. Afebrile. Denies chest pain, palpitations or shortness of breath. Denies lightheadedness dizziness or focal deficits. 12/19/2017 continues on IV antibiotics. Required Haldol earlier this morning, currently sedated. Renal function significantly improved. Afebrile. 12/22/17 reevaluated over the weekend by psychiatry, Depakote added to med regime with significant clinical improvement. Calm, cooperative. Echo reporting low normal LV function, EF 50-55%.EKG reporting atrial fibrillation, heart rates in the 120s. Magnesium 2.1 .troponins 0.035, 0.0-9 and 0.044 .evaluated by cardiology, Eliquis and Lopressor. Completed antibiotic regimen and will not need further antibiotics at discharge regarding UTI. 12/23/2017 patient became agitated last night, refusing to take her oral medications. This morning combative, kicking & spitting at staff. Anticoagulation further discussed with cardiology, as this patient requiring IM Ativan. Eliquis discontinued, continues on aspirin 325 mg. IM Ativan administered, patient currently resting calmly. Objective - Vital Signs Vital signs: Vital Signs Temp 98.9 F 12/23/17 06:08 Pulse 87 12/23/17 06:08 Resp 16 12/23/17 06:08 BP 144/76 12/23/17 06:08 Pulse Ox 97 12/23/17 06:08 Intake & Output 12/22/17 12/23/17 12/23/17 18:59 06:59 18:59 Intake Total 300 Balance 300 Weight 79.379 kg Intake: Oral 300 Other: Voiding Method Bedpan # Voids 1 2 # Bowel Movements 1 - Exam PHYSICAL EXAM: VITAL SIGNS: As above GENERAL: Lying in bed, no acute distress HEENT: Conjunctivae normal. eyes normal. NECK: No JVD. No thyroid enlargement. No LNs CARDIOVASCULAR: S1, S2 muffled. No murmur RESPIRATION: Breath sounds diminished in the bases. No rhonchi or crackles. ABDOMEN: Soft, nontender . no masses palpable. Bowel sounds heard. PSYCHIATRY: Unable to assess at this time, sedated NERVOUS SYSTEM: Diffuse weakness. Microbiology 12/12/17 23:57 Blood Blood Culture - Final No Growth after 144 hours 12/12/17 14:23 Urine,Clean Catch Urine Culture - Final Enterobacter cloacae - Labs CBC & Chem 7: 12/22/17 08:29 12/22/17 08:29 Assessment and Plan Assessment: 1. Acute UTI with Enterobacter Clocae, with possible sepsis, present on admission 2. Change in mental status, acute metabolic encephalopathy secondary to sepsis 3. Acute renal failure, possibly acute tubular necrosis secondary to dehydration, improving 4. Dementia with behavioral changes 5. New onset paroxysmal atrial fibrillation with RVR, controlled.. Plan: Continue on current medication regime ,monitoring and symptomatic treatment. Discharge to [facility] placed on hold. Psychiatry to reevaluate and give further recommendations. As mentioned above Eliquis has been discontinued and currently on full strength aspirin while requiring IM PRN injections. Close monitoring of renal function, electrolytes with repeat labs ordered for a.m. prognosis guarded given multiple complex medical issues. The impression and plan of care has been dictated as directed. : I performed a history and examination of this patient, discussed the same with the dictator. I agree with the dictator's note ,documented as a scribe. Any additional findings or plans will be noted.
[2017-12-23] MEDS: CHOLECALCIFEROL 1,000 UNIT TAB PO SCH (17:45)
[2017-12-23] MEDS: MAGNESIUM OXIDE 400 MG TAB PO SCH (17:45)
[2017-12-23] MEDS: MEMANTINE 5 MG TAB PO SCH (21:41)
[2017-12-23] MEDS: SERTRALINE 100 MG TAB PO SCH (21:42)
[2017-12-23] MEDS: SENNOSIDES 8.6 MG TAB PO SCH (21:42)
[2017-12-24] MEDS ORDERED: HALOPERIDOL LACTATE 5 MG/ML 1 ML VIAL IM ONE (05:48)
[2017-12-24] MEDS: SODIUM CHLORIDE 0.9% 1,000 ML IV SCH ×2 (07:27→17:18)
[2017-12-24] MEDS: DIVALPROEX 250 MG TABLET.DR PO SCH ×3 (07:51→20:52)
[2017-12-24] MEDS: busPIRone HCl 10 MG TAB PO SCH ×4 (07:51→20:52)
[2017-12-24] MEDS: QUEtiapine 25 MG TAB PO SCH ×4 (07:51→20:52)
[2017-12-24] MEDS: ASPIRIN 325 MG TAB PO SCH ×2 (07:51→09:49)
[2017-12-24] MEDS: METOPROLOL TARTRATE 25 MG TAB PO SCH ×2 (07:57→20:52)
[2017-12-24] MEDS: PANTOPRAZOLE 40 MG TABLET PO SCH (07:57)
[2017-12-24] MEDS ORDERED: LORazepam 2 MG/ML INJ IM STA (09:02)
[2017-12-24 09:49] LABS: Calcium 9.6 mg/dL (8.4-10.2); Potassium 3.7 mmol/L (3.5-5.1)
[2017-12-24 10:43] LABS: Basophils # (A) 0.1 k/uL (0-0.2); Basophils % (A) 1 %; Eosinophils # (A) 0.1 k/uL (0-0.7); Eosinophils % (A) 1 %; HCT 34.8 % (34.0-46.0); Lymphocytes # (A) 1.3 k/uL (1.0-4.8); Lymphocytes % (A) 11 %; MCH 28.6 pg (25.0-35.0); MCHC 31.7 g/dL (31.0-37.0); MCV 90.1 fL (80.0-100.0); Monocytes # (A) 0.7 k/uL (0-1.0); Monocytes % (A) 6 %; Neutrophils % (A) 80 %; Platelet Count 338 k/uL (150-450); RBC 3.86 m/uL (3.80-5.40); WBC 12.5 k/uL (3.8-10.6)
[2017-12-24] MEDS: FOLIC ACID 1 MG TAB PO SCH (13:10)
[2017-12-24] MEDS: THIAMINE 100 MG TAB PO SCH (13:10)
[2017-12-24] MEDS: MULTIVITAMINS, THERA 1 EACH TAB PO SCH (13:10)
[2017-12-24] MEDS ORDERED: Magnesium Replacement Protocol 1 EACH MISC MISCELLANE PRN (17:10)
--- NOTE | 2017-12-24 17:27 | P.PN ---
Subjective Progress Note Date: 12/24/17 Progress note being dictated for Dr. Bianchi Interval history: This is a 77-year-old female admitted with acute UTI with Enterobacter Clocae, possible sepsis, metabolic encephalopathy secondary sepsis , acute renal failure and multiple other medical issues. Maintained on IV antibiotics, gentle IV fluid hydration. Renal function improving. Evaluated by psychiatry with recommendations noted. PRN Geodon with significant clinical improvement. Soft restraints are off. Cooperative. Diet intake fair. Sitter at bedside. 12/17/2017 remain sitter free. Diet intake improving. Cooperative, pleasantly confused. Afebrile, normal WBC. Creatinine 0.95. Has not required any Haldol for Geodon, last night or today. 12/18/2017 maintained on IV antibiotics for acute UTI .sitting up in chair, eating lunch. No nausea vomiting or diarrhea. Denies abdominal pain. Required Haldol early this a.m. for agitation/combativeness. Currently Calm, Cooperative, conversing. Afebrile. Denies chest pain, palpitations or shortness of breath. Denies lightheadedness dizziness or focal deficits. 12/19/2017 continues on IV antibiotics. Required Haldol earlier this morning, currently sedated. Renal function significantly improved. Afebrile. 12/22/17 reevaluated over the weekend by psychiatry, Depakote added to med regime with significant clinical improvement. Calm, cooperative. Echo reporting low normal LV function, EF 50-55%.EKG reporting atrial fibrillation, heart rates in the 120s. Magnesium 2.1 .troponins 0.035, 0.0-9 and 0.044 .evaluated by cardiology, Eliquis and Lopressor. Completed antibiotic regimen and will not need further antibiotics at discharge regarding UTI. 12/23/2017 patient became agitated last night, refusing to take her oral medications. This morning combative, kicking & spitting at staff. Anticoagulation further discussed with cardiology, as this patient requiring IM Ativan. Eliquis discontinued, continues on aspirin 325 mg. IM Ativan administered, patient currently resting calmly. 12/24/17 patient again refusing hs medications continued agitation, combativeness , received Haldol IM during the night. Agitation and combativeness continues. Ativan IM administered. Objective - Vital Signs Vital signs: Vital Signs Temp 97.8 F 09/12/18 13:37 Pulse 77 12/24/17 13:37 Resp 18 12/24/17 13:37 BP 129/76 12/24/17 13:37 Pulse Ox 98 12/24/17 13:37 Intake & Output 12/23/17 12/24/17 12/24/17 18:59 06:59 18:59 Intake Total 200 Balance 200 Intake: Oral 200 Other: Voiding Method Diaper Diaper Incontinent Incontinent # Voids 3 1 - Exam PHYSICAL EXAM: VITAL SIGNS: As above GENERAL: Lying in bed,sedated, no acute distress HEENT: Conjunctivae normal. eyes normal. NECK: No JVD. No thyroid enlargement. No LNs CARDIOVASCULAR: S1, S2 muffled. No murmur RESPIRATION: Breath sounds diminished in the bases. No rhonchi or crackles. ABDOMEN: Soft, nontender . no masses palpable. Bowel sounds heard. PSYCHIATRY: Unable to assess at this time, sedated NERVOUS SYSTEM: Diffuse weakness. Microbiology 12/12/17 23:57 Blood Blood Culture - Final No Growth after 144 hours 12/12/17 14:23 Urine,Clean Catch Urine Culture - Final Enterobacter cloacae - Labs CBC & Chem 7: 12/24/17 08:40 12/24/17 08:40 Labs: Abnormal Lab Results - Last 24 Hours (Table) 12/24/17 12/24/17 Range/Units 08:40 08:40 WBC 12.5 H (3.8-10.6) k/uL Hgb 11.0 L (11.4-16.0) gm/dL Neutrophils # 10.0 H (1.3-7.7) k/uL Chloride 108 H (98-107) mmol/L Carbon Dioxide 19 L (22-30) mmol/L Assessment and Plan Assessment: 1. Acute UTI with Enterobacter Clocae, with possible sepsis, present on admission 2. Change in mental status, acute metabolic encephalopathy secondary to sepsis 3. Acute renal failure, possibly acute tubular necrosis secondary to dehydration, improving 4. Dementia with behavioral changes 5. New onset paroxysmal atrial fibrillation with RVR, controlled.. Plan: Continue on current medication regime ,monitoring and symptomatic treatment. Discharge remains on hold. Psychiatry re-consult in place, recommendations pending. Discussed with social work the patient may benefit from Geripsych unit at this time given patient's current clinical presentation of combativeness, aggressiveness, requiring daily medication adjustments. Unable to maintain IV site, IV antibiotics converted to oral. Geodon added to med regime. EKG in a.m. The impression and plan of care has been dictated as directed. : I performed a history and examination of this patient, discussed the same with the dictator. I agree with the dictator's note ,documented as a scribe. Any additional findings or plans will be noted.
[2017-12-24] MEDS: MAGNESIUM OXIDE 400 MG TAB PO SCH (18:15)
[2017-12-24] MEDS: CHOLECALCIFEROL 1,000 UNIT TAB PO SCH (18:15)
[2017-12-24] MEDS: CEFDINIR 300 MG CAP PO SCH ×2 (18:19→19:30)
[2017-12-24] MEDS: ZIPRASIDONE 20 MG VIAL IM PRN (19:06)
[2017-12-24] MEDS: MEMANTINE 5 MG TAB PO SCH (20:52)
[2017-12-24] MEDS: SENNOSIDES 8.6 MG TAB PO SCH (20:53)
[2017-12-24] MEDS: SERTRALINE 100 MG TAB PO SCH (20:53)
[2017-12-24] MEDS ORDERED: CEFDINIR 300 MG CAP PO SCH (21:00)
[2017-12-25] MEDS: SODIUM CHLORIDE 0.9% 1,000 ML IV SCH ×2 (05:56→19:09)
[2017-12-25] MEDS: ASPIRIN 325 MG TAB PO SCH (08:01)
[2017-12-25] MEDS: busPIRone HCl 10 MG TAB PO SCH ×2 (08:01→22:17)
[2017-12-25] MEDS: METOPROLOL TARTRATE 25 MG TAB PO SCH ×2 (08:01→22:16)
[2017-12-25] MEDS: PANTOPRAZOLE 40 MG TABLET PO SCH (08:01)
[2017-12-25] MEDS: MAGNESIUM OXIDE 400 MG TAB PO SCH (08:02)
[2017-12-25] MEDS: DIVALPROEX 250 MG TABLET.DR PO SCH ×2 (08:02→22:19)
[2017-12-25] MEDS: QUEtiapine 25 MG TAB PO SCH ×2 (08:03→22:17)
[2017-12-25] MEDS: CEFDINIR 300 MG CAP PO SCH ×2 (08:03→22:16)
[2017-12-25] MEDS: CHOLECALCIFEROL 1,000 UNIT TAB PO SCH (08:03)
[2017-12-25] MEDS: FOLIC ACID 1 MG TAB PO SCH (08:03)
[2017-12-25] MEDS: MULTIVITAMINS, THERA 1 EACH TAB PO SCH (08:03)
[2017-12-25] MEDS: THIAMINE 100 MG TAB PO SCH (08:03)
[2017-12-25] MEDS: ZIPRASIDONE 20 MG VIAL IM PRN ×2 (08:41→23:08)
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
[2017-12-25] MEDS: SENNOSIDES 8.6 MG TAB PO SCH (22:15)
[2017-12-25] MEDS: SERTRALINE 100 MG TAB PO SCH (22:16)
[2017-12-25] MEDS: MEMANTINE 5 MG TAB PO SCH (22:16)
[2017-12-26] MEDS: PANTOPRAZOLE 40 MG TABLET PO SCH (08:22)
[2017-12-26] MEDS: ASPIRIN 325 MG TAB PO SCH (08:22)
[2017-12-26] MEDS: THIAMINE 100 MG TAB PO SCH (08:23)
[2017-12-26] MEDS: MULTIVITAMINS, THERA 1 EACH TAB PO SCH (08:23)
[2017-12-26] MEDS: CHOLECALCIFEROL 1,000 UNIT TAB PO SCH (08:23)
[2017-12-26] MEDS: CEFDINIR 300 MG CAP PO SCH ×3 (08:23→22:52)
[2017-12-26] MEDS: DIVALPROEX 250 MG TABLET.DR PO SCH ×3 (08:23→22:52)
[2017-12-26] MEDS: FOLIC ACID 1 MG TAB PO SCH (08:23)
[2017-12-26] MEDS: busPIRone HCl 10 MG TAB PO SCH ×3 (08:23→22:52)
[2017-12-26] MEDS: METOPROLOL TARTRATE 25 MG TAB PO SCH ×3 (08:23→22:52)
[2017-12-26] MEDS: QUEtiapine 25 MG TAB PO SCH ×3 (08:24→22:52)
[2017-12-26] MEDS: MAGNESIUM OXIDE 400 MG TAB PO SCH (08:24)
[2017-12-26] MEDS: ZIPRASIDONE 20 MG VIAL IM PRN (16:49)
--- NOTE | 2017-12-26 18:31 | P.PN ---
Subjective Progress Note Date: 12/25/17 Progress note being dictated for Dr. Langford Interval history: This is a 77-year-old female admitted with acute UTI with Enterobacter Clocae, possible sepsis, metabolic encephalopathy secondary sepsis , acute renal failure and multiple other medical issues. Maintained on IV antibiotics, gentle IV fluid hydration. Renal function improving. Evaluated by psychiatry with recommendations noted. PRN Geodon with significant clinical improvement. Soft restraints are off. Cooperative. Diet intake fair. Sitter at bedside. 12/17/2017 remain sitter free. Diet intake improving. Cooperative, pleasantly confused. Afebrile, normal WBC. Creatinine 0.95. Has not required any Haldol for Geodon, last night or today. 12/18/2017 maintained on IV antibiotics for acute UTI .sitting up in chair, eating lunch. No nausea vomiting or diarrhea. Denies abdominal pain. Required Haldol early this a.m. for agitation/combativeness. Currently Calm, Cooperative, conversing. Afebrile. Denies chest pain, palpitations or shortness of breath. Denies lightheadedness dizziness or focal deficits. 12/19/2017 continues on IV antibiotics. Required Haldol earlier this morning, currently sedated. Renal function significantly improved. Afebrile. 12/22/17 reevaluated over the weekend by psychiatry, Depakote added to med regime with significant clinical improvement. Calm, cooperative. Echo reporting low normal LV function, EF 50-55%.EKG reporting atrial fibrillation, heart rates in the 120s. Magnesium 2.1 .troponins 0.035, 0.0-9 and 0.044 .evaluated by cardiology, Eliquis and Lopressor. Completed antibiotic regimen and will not need further antibiotics at discharge regarding UTI. 12/23/2017 patient became agitated last night, refusing to take her oral medications. This morning combative, kicking & spitting at staff. Anticoagulation further discussed with cardiology, as this patient requiring IM Ativan. Eliquis discontinued, continues on aspirin 325 mg. IM Ativan administered, patient currently resting calmly. 12/24/17 patient again refusing hs medications continued agitation, combativeness , received Haldol IM during the night. Agitation and combativeness continues. Ativan IM administered. 12/25/2017 confused, agitated, sitter at bedside as patient attempting to climb out of bed. Evaluated by psychiatry, recommendations noted. Objective - Vital Signs Vital signs: Vital Signs Temp 98.2 F 12/25/17 14:10 Pulse 109 H 12/25/17 14:10 Resp 22 12/25/17 14:10 BP 136/61 12/25/17 14:10 Pulse Ox 95 12/25/17 14:10 Intake & Output 12/24/17 12/25/17 12/25/17 18:59 06:59 18:59 Intake Total 200 50 Balance 200 50 Weight 79.379 kg Intake: Oral 200 50 Other: Voiding Method Diaper Diaper Diaper Incontinent Incontinent Incontinent # Voids 1 1 1 - Exam PHYSICAL EXAM: VITAL SIGNS: As above GENERAL: Agitated, crawling out of bed, sitter at bedside HEENT: Conjunctivae normal. eyes normal. NECK: No JVD. No thyroid enlargement. No LNs CARDIOVASCULAR: S1, S2 muffled. No murmur RESPIRATION: Breath sounds diminished in the bases. No rhonchi or crackles. ABDOMEN: Soft, nontender . no masses palpable. Bowel sounds heard. PSYCHIATRY: Unable to assess at this time. NERVOUS SYSTEM: Diffuse weakness. Microbiology 12/12/17 23:57 Blood Blood Culture - Final No Growth after 144 hours 12/12/17 14:23 Urine,Clean Catch Urine Culture - Final Enterobacter cloacae - Labs CBC & Chem 7: 12/24/17 08:40 12/24/17 08:40 Assessment and Plan Assessment: 1. Acute UTI with Enterobacter Clocae, with possible sepsis, present on admission 2. Change in mental status, acute metabolic encephalopathy secondary to sepsis 3. Acute renal failure, possibly acute tubular necrosis secondary to dehydration, improving 4. Alzheimer's Dementia with behavioral changes 5. New onset paroxysmal atrial fibrillation with RVR, controlled. Plan: Continue on current medication regime ,monitoring and symptomatic treatment. Depakote and ammonia levels ordered. rock room worker assisting with finding a Geripsych unit. Follow closely with psychiatry. Further recommendations to follow The impression and plan of care has been dictated as directed. : I performed a history and examination of this patient, discussed the same with the dictator. I agree with the dictator's note ,documented as a scribe. Any additional findings or plans will be noted.
--- NOTE | 2017-12-26 18:36 | P.PN ---
Subjective Progress Note Date: 12/26/17 Progress note being dictated for Dr. Langford Interval history: This is a 77-year-old female admitted with acute UTI with Enterobacter Clocae, possible sepsis, metabolic encephalopathy secondary sepsis , acute renal failure and multiple other medical issues. Maintained on IV antibiotics, gentle IV fluid hydration. Renal function improving. Evaluated by psychiatry with recommendations noted. PRN Geodon with significant clinical improvement. Soft restraints are off. Cooperative. Diet intake fair. Sitter at bedside. 12/17/2017 remain sitter free. Diet intake improving. Cooperative, pleasantly confused. Afebrile, normal WBC. Creatinine 0.95. Has not required any Haldol for Geodon, last night or today. 12/18/2017 maintained on IV antibiotics for acute UTI .sitting up in chair, eating lunch. No nausea vomiting or diarrhea. Denies abdominal pain. Required Haldol early this a.m. for agitation/combativeness. Currently Calm, Cooperative, conversing. Afebrile. Denies chest pain, palpitations or shortness of breath. Denies lightheadedness dizziness or focal deficits. 12/19/2017 continues on IV antibiotics. Required Haldol earlier this morning, currently sedated. Renal function significantly improved. Afebrile. 12/22/17 reevaluated over the weekend by psychiatry, Depakote added to med regime with significant clinical improvement. Calm, cooperative. Echo reporting low normal LV function, EF 50-55%.EKG reporting atrial fibrillation, heart rates in the 120s. Magnesium 2.1 .troponins 0.035, 0.0-9 and 0.044 .evaluated by cardiology, Eliquis and Lopressor. Completed antibiotic regimen and will not need further antibiotics at discharge regarding UTI. 12/23/2017 patient became agitated last night, refusing to take her oral medications. This morning combative, kicking & spitting at staff. Anticoagulation further discussed with cardiology, as this patient requiring IM Ativan. Eliquis discontinued, continues on aspirin 325 mg. IM Ativan administered, patient currently resting calmly. 12/24/17 patient again refusing hs medications continued agitation, combativeness , received Haldol IM during the night. Agitation and combativeness continues. Ativan IM administered. 12/25/2017 confused, agitated, sitter at bedside as patient attempting to climb out of bed. Evaluated by psychiatry, recommendations noted. 12/26/17 sedated, diet intake poor. Sitter at bedside. Ammonia level 17, Depakote level 17.3. Afebrile. Objective - Vital Signs Vital signs: Vital Signs Temp 97.4 F L 12/26/17 13:00 Pulse 63 12/26/17 13:00 Resp 16 12/26/17 13:00 BP 142/70 12/26/17 13:00 Pulse Ox 98 12/26/17 13:00 Intake & Output 12/25/17 12/26/17 12/26/17 18:59 06:59 18:59 Intake Total 50 200 Balance 50 200 Weight 79.379 kg 79.379 kg Intake: Oral 50 200 Other: Voiding Method Diaper Diaper Diaper Incontinent Incontinent Incontinent # Voids 1 1 1 # Bowel Movements 0 - Exam PHYSICAL EXAM: VITAL SIGNS: As above GENERAL: Sedated, sitter at bedside HEENT: Conjunctivae normal. eyes normal. NECK: No JVD. No thyroid enlargement. No LNs CARDIOVASCULAR: S1, S2 muffled. No murmur RESPIRATION: Breath sounds diminished in the bases. No rhonchi or crackles. no wheezing ABDOMEN: Soft, nontender . no masses palpable. Bowel sounds heard. PSYCHIATRY: Unable to assess at this time. NERVOUS SYSTEM: Diffuse weakness. Microbiology 12/12/17 23:57 Blood Blood Culture - Final No Growth after 144 hours 12/12/17 14:23 Urine,Clean Catch Urine Culture - Final Enterobacter cloacae - Labs CBC & Chem 7: 12/24/17 08:40 12/24/17 08:40 Assessment and Plan Assessment: 1. Acute UTI with Enterobacter Clocae, with possible sepsis, present on admission 2. Change in mental status, acute metabolic encephalopathy secondary to sepsis 3. Acute renal failure, possibly acute tubular necrosis secondary to dehydration, improving 4. Alzheimer's Dementia with behavioral changes 5. New onset paroxysmal atrial fibrillation with RVR, controlled. Plan: Continue on current medication regime ,monitoring and symptomatic treatment. Encourage oral intake. Close monitoring of renal function and electrolytes with repeat labs ordered for a.m. Further recommendations pending from psychiatry. rubber worker assisting with finding a Geripsych unit. Follow closely with psychiatry. Further recommendations to follow. The impression and plan of care has been dictated as directed. : I performed a history and examination of this patient, discussed the same with the dictator. I agree with the dictator's note ,documented as a scribe. Any additional findings or plans will be noted.
[2017-12-26] MEDS: SENNOSIDES 8.6 MG TAB PO SCH ×2 (22:08→22:52)
[2017-12-26] MEDS: MEMANTINE 5 MG TAB PO SCH ×2 (22:08→22:52)
[2017-12-26] MEDS: SERTRALINE 100 MG TAB PO SCH ×2 (22:09→22:53)
[2017-12-27] MEDS: QUEtiapine 25 MG TAB PO SCH ×2 (08:34→20:08)
[2017-12-27] MEDS: CEFDINIR 300 MG CAP PO SCH ×2 (08:34→20:07)
[2017-12-27] MEDS: busPIRone HCl 10 MG TAB PO SCH ×2 (08:34→20:07)
[2017-12-27] MEDS: DIVALPROEX 250 MG TABLET.DR PO SCH ×2 (08:34→20:17)
[2017-12-27] MEDS: PANTOPRAZOLE 40 MG TABLET PO SCH (08:34)
[2017-12-27] MEDS: METOPROLOL TARTRATE 25 MG TAB PO SCH ×2 (08:34→20:08)
[2017-12-27] MEDS: ASPIRIN 325 MG TAB PO SCH (08:34)
[2017-12-27 09:08] LABS: Basophils % (A) 1 %; Eosinophils # (A) 0.2 k/uL (0-0.7); Eosinophils % (A) 2 %; HCT 35.5 % (34.0-46.0); HGB 11.1 gm/dL (11.4-16.0); Lymphocytes # (A) 1.3 k/uL (1.0-4.8); Lymphocytes % (A) 18 %; MCH 28.4 pg (25.0-35.0); MCHC 31.4 g/dL (31.0-37.0); MCV 90.3 fL (80.0-100.0); Mean Platelet Volume 6.5; Monocytes # (A) 0.4 k/uL (0-1.0); Monocytes % (A) 6 %; Neutrophils # (A) 5.2 k/uL (1.3-7.7); Neutrophils % (A) 71 %; Platelet Count 453 k/uL (150-450); RBC 3.93 m/uL (3.80-5.40); RDW 13.9 % (11.5-15.5); WBC 7.3 k/uL (3.8-10.6)
[2017-12-27 09:16] LABS: Calcium 9.5 mg/dL (8.4-10.2); Potassium 3.7 mmol/L (3.5-5.1)
[2017-12-27] MEDS: FOLIC ACID 1 MG TAB PO SCH (10:58)
[2017-12-27] MEDS: THIAMINE 100 MG TAB PO SCH (10:58)
[2017-12-27] MEDS: MULTIVITAMINS, THERA 1 EACH TAB PO SCH (10:58)
[2017-12-27] MEDS: MAGNESIUM OXIDE 400 MG TAB PO SCH (16:01)
[2017-12-27] MEDS: CHOLECALCIFEROL 1,000 UNIT TAB PO SCH (16:01)
--- NOTE | 2017-12-27 18:22 | PN ---
PROGRESS NOTE DATE OF SERVICE: 12/27/2017. INTERVAL HISTORY: This 77-year-old woman who was admitted with UTI with Enterobacter cloacae, also had change in mental status, which could be a combination of delirium plus dementia with behavioral changes. Multiple consultants are following the patient, including Psychiatry and long term care social worker is also contacting different facilities for possibly possible discharge. No chest pain. No palpitations. No fever. EXAM: The patient is conscious, confused. Pulse 92, blood pressure 108/63, respirations 16, temperature 98 degrees, pulse ox 100% on room air. HEENT: Conjunctivae normal. Oral mucosa moist. NECK: No jugular venous distention. No carotid bruits. No lymph node enlargement. CARDIOVASCULAR: S1, S2 muffled. RESPIRATORY: Breath sounds diminished in the bases. Scattered rhonchi and crackles. ABDOMEN: Soft and nontender. LEGS: No edema. NERVOUS SYSTEM: No focal deficits. LABS: Noted. Hemoglobin 11.1. ASSESSMENT: 1. Acute urinary tract infection with Enterobacter cloacae with possible sepsis, present on admission. 2. Change in mental status. 3. Multifactorial acute metabolic encephalopathy secondary to sepsis as well as possible dementia with behavior changes. 4. Acute renal failure, possibly acute tubular necrosis secondary dehydration, improving. 5. New onset paroxysmal atrial fibrillation with rapid ventricular rate controlled. 6. NO CODE, NO CPR, NO VENT. RECOMMENDATIONS AND DISCUSSION: I recommend to continue current medical management and symptomatic treatment. Otherwise, continue the current medications. Closely follow with the case management team and long term care social worker for possible discharge. The prognosis is guarded because of the multiple complex medical issues. Further recommendations to follow. MMODL / IJN: [id number] /
[2017-12-27] MEDS: SENNOSIDES 8.6 MG TAB PO SCH (20:18)
[2017-12-27] MEDS: SERTRALINE 100 MG TAB PO SCH (20:18)
[2017-12-27] MEDS: MEMANTINE 5 MG TAB PO SCH (20:18)
[2017-12-27] MEDS: ZIPRASIDONE 20 MG VIAL IM PRN (21:48)
[2017-12-28] MEDS: FOLIC ACID 1 MG TAB PO SCH (08:30)
[2017-12-28] MEDS: DIVALPROEX 250 MG TABLET.DR PO SCH ×2 (08:30→19:27)
[2017-12-28] MEDS: THIAMINE 100 MG TAB PO SCH (08:33)
[2017-12-28] MEDS: busPIRone HCl 10 MG TAB PO SCH ×2 (08:33→19:28)
[2017-12-28] MEDS: PANTOPRAZOLE 40 MG TABLET PO SCH (08:33)
[2017-12-28] MEDS: CEFDINIR 300 MG CAP PO SCH ×2 (08:33→19:27)
[2017-12-28] MEDS: METOPROLOL TARTRATE 25 MG TAB PO SCH ×2 (08:33→23:10)
[2017-12-28] MEDS: MULTIVITAMINS, THERA 1 EACH TAB PO SCH (08:33)
[2017-12-28] MEDS: ASPIRIN 325 MG TAB PO SCH (08:33)
[2017-12-28] MEDS: QUEtiapine 25 MG TAB PO SCH ×2 (08:33→19:28)
[2017-12-28] MEDS: MAGNESIUM OXIDE 400 MG TAB PO SCH (15:00)
[2017-12-28] MEDS: CHOLECALCIFEROL 1,000 UNIT TAB PO SCH (15:00)
[2017-12-28] MEDS: MEMANTINE 5 MG TAB PO SCH (19:28)
[2017-12-28] MEDS: SERTRALINE 100 MG TAB PO SCH (19:29)
--- NOTE | 2017-12-28 22:35 | PN ---
PROGRESS NOTE DATE OF SERVICE: 12/28/2017. INTERVAL HISTORY: This 77-year-old woman was admitted with multiple weakness, had acute on chronic metabolic encephalopathy as well as and dementia with behavioral abnormalities as well. 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 No chest pain. No palpitations. No fever. EXAM: Patient is confused. Pulse 97, blood pressure 119/70, respirations 16, temperature 98.2, pulse ox 100 percent room air. HEENT: Conjunctivae normal. Oral mucosa moist. NECK: No JVD. No lymph node enlargement. CARDIOVASCULAR: S1 and S2 muffled. LUNGS: Breath sounds diminished in the bases. No rhonchi no crackles. ABDOMEN: Soft, nontender. NERVOUS SYSTEM: No focal deficits. LABS: WBC 7.2, hemoglobin is 11. ASSESSMENT: 1. Acute urinary tract infection with Enterobacter cloacae with possible sepsis present on admission. 2. Change in mental status, multifactorial. 3. Acute metabolic encephalopathy secondary to sepsis as well as possible dementia with behavior changes. 4. Acute renal failure, possible acute tubular necrosis secondary to dehydration present on admission. 5. New onset paroxysmal atrial with rapid ventricular rate, controlled. 6. NO CODE, NO CPR, NO VENT. 7. History of nicotine dependence. RECOMMENDATION AND DISCUSSION: I recommend to continue current treatment, monitoring and symptomatic treatment. Closely follow with multiple consultants. Case Management evaluation. Guarded prognosis. Further recommendations to follow. NIRAV / SHER: [id number] /
[2017-12-28] MEDS: SENNOSIDES 8.6 MG TAB PO SCH (23:10)
[2017-12-29] MEDS: ZIPRASIDONE 20 MG VIAL IM PRN (05:32)
[2017-12-29] MEDS: DIVALPROEX 250 MG TABLET.DR PO SCH ×2 (08:20→20:51)
[2017-12-29] MEDS: ASPIRIN 325 MG TAB PO SCH (08:20)
[2017-12-29] MEDS: CEFDINIR 300 MG CAP PO SCH ×2 (08:20→20:51)
[2017-12-29] MEDS: METOPROLOL TARTRATE 25 MG TAB PO SCH ×2 (08:20→20:47)
[2017-12-29] MEDS: busPIRone HCl 10 MG TAB PO SCH ×2 (08:20→20:51)
[2017-12-29] MEDS: QUEtiapine 25 MG TAB PO SCH ×2 (08:20→20:47)
[2017-12-29] MEDS: PANTOPRAZOLE 40 MG TABLET PO SCH (08:21)
[2017-12-29] MEDS: FOLIC ACID 1 MG TAB PO SCH (13:19)
[2017-12-29] MEDS: MULTIVITAMINS, THERA 1 EACH TAB PO SCH (13:19)
[2017-12-29] MEDS: THIAMINE 100 MG TAB PO SCH (13:20)
[2017-12-29] MEDS: MAGNESIUM OXIDE 400 MG TAB PO SCH (18:35)
[2017-12-29] MEDS: CHOLECALCIFEROL 1,000 UNIT TAB PO SCH (18:35)
--- NOTE | 2017-12-29 19:27 | EEG ---
ELECTROENCEPHALOGRAM REPORT DATE OF SERVICE: 12/17/2017. REASON FOR TESTING: Altered mental status. DESCRIPTION OF THE PROCEDURE: This EEG was performed using a 21 channel digital electroencephalograph, following international 10-20 system. DESCRIPTION OF THE RECORDING: From the beginning of the tracing, with the patient's eyes closed, the background rhythm was mostly consisting of 7 Hz theta frequency in the posterior occipital leads. No obvious asymmetry is seen. Photic stimulation was performed with no driving response seen. No pathological waves were elicited. Hyperventilation was not performed. The patient does reach stage II of sleep during the tracing and occasional sleep spindles are seen. No epileptiform discharges were seen. Her EKG lead showed a regular rate and rhythm. INTERPRETATION: This asleep and awake EEG is abnormal due to presence of generalized slowing of the background rhythm, mostly in the theta range. This is consistent with mild encephalopathy. No epileptiform discharges were seen. The absence of epileptiform discharges does not rule out the diagnosis of epilepsy; therefore clinical correlation is recommended. MMCHAPARRITA / YAN: [id number] /
[2017-12-29] MEDS: SERTRALINE 100 MG TAB PO SCH (20:47)
[2017-12-29] MEDS: MEMANTINE 5 MG TAB PO SCH (20:51)
[2017-12-29] MEDS: SENNOSIDES 8.6 MG TAB PO SCH (20:51)
[2017-12-30] MEDS: QUEtiapine 25 MG TAB PO SCH ×2 (07:24→20:48)
[2017-12-30] MEDS: busPIRone HCl 10 MG TAB PO SCH ×2 (07:24→20:48)
[2017-12-30] MEDS: DIVALPROEX 250 MG TABLET.DR PO SCH ×2 (07:30→20:49)
[2017-12-30] MEDS: CEFDINIR 300 MG CAP PO SCH ×2 (07:31→20:49)
[2017-12-30] MEDS: PANTOPRAZOLE 40 MG TABLET PO SCH (07:31)
[2017-12-30] MEDS: METOPROLOL TARTRATE 25 MG TAB PO SCH ×2 (07:31→20:49)
[2017-12-30] MEDS: ASPIRIN 325 MG TAB PO SCH (07:31)
[2017-12-30] MEDS: THIAMINE 100 MG TAB PO SCH (13:08)
[2017-12-30] MEDS: MULTIVITAMINS, THERA 1 EACH TAB PO SCH (13:08)
[2017-12-30] MEDS: FOLIC ACID 1 MG TAB PO SCH (13:08)
[2017-12-30 14:19] VITALS: RESP 16
[2017-12-30] MEDS: CHOLECALCIFEROL 1,000 UNIT TAB PO SCH (16:37)
[2017-12-30] MEDS: MAGNESIUM OXIDE 400 MG TAB PO SCH (16:37)
--- NOTE | 2017-12-30 18:26 | P.PN ---
Subjective Progress Note Date: 12/29/17 Progress note being dictated for Dr. Langford Interval history: This is a 77-year-old female admitted with acute UTI with Enterobacter Clocae, possible sepsis, metabolic encephalopathy secondary sepsis , acute renal failure and multiple other medical issues. Maintained on IV antibiotics, gentle IV fluid hydration. Renal function improving. Evaluated by psychiatry with recommendations noted. PRN Geodon with significant clinical improvement. Soft restraints are off. Cooperative. Diet intake fair. Sitter at bedside. 12/17/2017 remain sitter free. Diet intake improving. Cooperative, pleasantly confused. Afebrile, normal WBC. Creatinine 0.95. Has not required any Haldol for Geodon, last night or today. 12/18/2017 maintained on IV antibiotics for acute UTI .sitting up in chair, eating lunch. No nausea vomiting or diarrhea. Denies abdominal pain. Required Haldol early this a.m. for agitation/combativeness. Currently Calm, Cooperative, conversing. Afebrile. Denies chest pain, palpitations or shortness of breath. Denies lightheadedness dizziness or focal deficits. 12/19/2017 continues on IV antibiotics. Required Haldol earlier this morning, currently sedated. Renal function significantly improved. Afebrile. 12/22/17 reevaluated over the weekend by psychiatry, Depakote added to med regime with significant clinical improvement. Calm, cooperative. Echo reporting low normal LV function, EF 50-55%.EKG reporting atrial fibrillation, heart rates in the 120s. Magnesium 2.1 .troponins 0.035, 0.0-9 and 0.044 .evaluated by cardiology, Eliquis and Lopressor. Completed antibiotic regimen and will not need further antibiotics at discharge regarding UTI. 12/23/2017 patient became agitated last night, refusing to take her oral medications. This morning combative, kicking & spitting at staff. Anticoagulation further discussed with cardiology, as this patient requiring IM Ativan. Eliquis discontinued, continues on aspirin 325 mg. IM Ativan administered, patient currently resting calmly. 12/24/17 patient again refusing hs medications continued agitation, combativeness , received Haldol IM during the night. Agitation and combativeness continues. Ativan IM administered. 12/25/2017 confused, agitated, sitter at bedside as patient attempting to climb out of bed. Evaluated by psychiatry, recommendations noted. 12/26/17 sedated, diet intake poor. Sitter at bedside. Ammonia level 17, Depakote level 17.3. Afebrile. 12/29/2017 anxious, confused, noncombative. Tearful at times. Diet intake poor , requires assistance and encouragement at every meal. Ambulating with assistance. Denies pain. Objective - Vital Signs Vital signs: Vital Signs Temp 98.3 F 12/29/17 15:00 Pulse 68 12/29/17 15:00 Resp 16 12/29/17 16:00 BP 108/62 12/29/17 15:00 Pulse Ox 99 12/29/17 15:00 Intake & Output 12/29/17 12/29/17 12/30/17 06:59 18:59 06:59 Intake Total 120 Balance 120 Intake: Oral 120 Other: Voiding Method Bedside Commode Incontinent # Voids 1 1 # Bowel Movements 1 1 - Exam PHYSICAL EXAM: VITAL SIGNS: As above GENERAL: Lying in bed, no acute distress, cooperative, alert and oriented 1 HEENT: Conjunctivae normal. eyes normal. NECK: No JVD. No thyroid enlargement. No LNs CARDIOVASCULAR: S1, S2 muffled. No murmur RESPIRATION: Breath sounds diminished in the bases. No rhonchi or crackles. no wheezing ABDOMEN: Soft, nontender . no masses palpable. Bowel sounds heard. NERVOUS SYSTEM: Diffuse weakness. Microbiology 12/12/17 23:57 Blood Blood Culture - Final No Growth after 144 hours 12/12/17 14:23 Urine,Clean Catch Urine Culture - Final Enterobacter cloacae - Labs CBC & Chem 7: 12/27/17 08:27 12/27/17 08:27 Assessment and Plan Assessment: 1. Acute UTI with Enterobacter Clocae, with possible sepsis, present on admission 2. Change in mental status, acute metabolic encephalopathy secondary to sepsis 3. Acute renal failure, possibly acute tubular necrosis secondary to dehydration, improving 4. Alzheimer's Dementia with behavioral changes 5. New onset paroxysmal atrial fibrillation with RVR, controlled. Plan: Continue on current medication regime ,monitoring and symptomatic treatment. Assist with all meals and snacks. Encourage oral intake. Increase ambulation as tolerated. Keep blinds open during the day and closed at night to aid confusion. Follow closely with psychiatry. [facility] reviewing patient's record for potential placement. The impression and plan of care has been dictated as directed. : I performed a history and examination of this patient, discussed the same with the dictator. I agree with the dictator's note ,documented as a scribe. Any additional findings or plans will be noted.
--- NOTE | 2017-12-30 18:32 | P.PN ---
Subjective Progress Note Date: 12/30/17 Progress note being dictated for Dr. Bianchi Interval history: This is a 77-year-old female admitted with acute UTI with Enterobacter Clocae, possible sepsis, metabolic encephalopathy secondary sepsis , acute renal failure and multiple other medical issues. Maintained on IV antibiotics, gentle IV fluid hydration. Renal function improving. Evaluated by psychiatry with recommendations noted. PRN Geodon with significant clinical improvement. Soft restraints are off. Cooperative. Diet intake fair. Sitter at bedside. 12/17/2017 remain sitter free. Diet intake improving. Cooperative, pleasantly confused. Afebrile, normal WBC. Creatinine 0.95. Has not required any Haldol for Geodon, last night or today. 12/18/2017 maintained on IV antibiotics for acute UTI .sitting up in chair, eating lunch. No nausea vomiting or diarrhea. Denies abdominal pain. Required Haldol early this a.m. for agitation/combativeness. Currently Calm, Cooperative, conversing. Afebrile. Denies chest pain, palpitations or shortness of breath. Denies lightheadedness dizziness or focal deficits. 12/19/2017 continues on IV antibiotics. Required Haldol earlier this morning, currently sedated. Renal function significantly improved. Afebrile. 12/22/17 reevaluated over the weekend by psychiatry, Depakote added to med regime with significant clinical improvement. Calm, cooperative. Echo reporting low normal LV function, EF 50-55%.EKG reporting atrial fibrillation, heart rates in the 120s. Magnesium 2.1 .troponins 0.035, 0.0-9 and 0.044 .evaluated by cardiology, Eliquis and Lopressor. Completed antibiotic regimen and will not need further antibiotics at discharge regarding UTI. 12/23/2017 patient became agitated last night, refusing to take her oral medications. This morning combative, kicking & spitting at staff. Anticoagulation further discussed with cardiology, as this patient requiring IM Ativan. Eliquis discontinued, continues on aspirin 325 mg. IM Ativan administered, patient currently resting calmly. 12/24/17 patient again refusing hs medications continued agitation, combativeness , received Haldol IM during the night. Agitation and combativeness continues. Ativan IM administered. 12/25/2017 confused, agitated, sitter at bedside as patient attempting to climb out of bed. Evaluated by psychiatry, recommendations noted. 12/26/17 sedated, diet intake poor. Sitter at bedside. Ammonia level 17, Depakote level 17.3. Afebrile. 12/29/2017 anxious, confused, noncombative. Tearful at times. Diet intake poor , requires assistance and encouragement at every meal. Ambulating with assistance. Denies pain. 12/30/2017 much more alert today. Diet intake improving. Ambulating in the hallway with assistance. Currently sitting at the nurse's station, conversing with staff, working on a puzzle, coloring, requesting meatless tacos. Denies pain. Denies chest pain, palpitations. Denies shortness of breath. Objective - Vital Signs Vital signs: Vital Signs Temp 97.0 F L 12/30/17 14:14 Pulse 65 12/30/17 14:14 Resp 16 12/30/17 15:40 BP 134/60 12/30/17 06:26 Pulse Ox 98 12/30/17 14:14 Intake & Output 12/29/17 12/30/17 12/30/17 18:59 06:59 18:59 Intake Total 120 Balance 120 Intake: Oral 120 Other: Voiding Method Bedside Commode Bedside Commode Incontinent Incontinent # Voids 1 1 2 # Bowel Movements 1 1 - Exam PHYSICAL EXAM: VITAL SIGNS: As above GENERAL: Sitting up in chair, no acute distress, cooperative, conversing, alert and oriented 1 HEENT: Conjunctivae normal. eyes normal. NECK: No JVD. No thyroid enlargement. No LNs CARDIOVASCULAR: S1, S2 muffled. No murmur RESPIRATION: Breath sounds diminished in the bases. No rhonchi or crackles. no wheezing ABDOMEN: Soft, nontender . no masses palpable. Bowel sounds heard. NERVOUS SYSTEM: Diffuse weakness. Microbiology 12/12/17 23:57 Blood Blood Culture - Final No Growth after 144 hours 12/12/17 14:23 Urine,Clean Catch Urine Culture - Final Enterobacter cloacae - Labs CBC & Chem 7: 12/27/17 08:27 12/27/17 08:27 Assessment and Plan Assessment: 1. Acute UTI with Enterobacter Clocae, with possible sepsis, present on admission 2. Change in mental status, acute metabolic encephalopathy secondary to sepsis 3. Acute renal failure, possibly acute tubular necrosis secondary to dehydration, improving 4. Alzheimer's Dementia with behavioral changes 5. New onset paroxysmal atrial fibrillation with RVR, controlled. Plan: Continue on current medication regime ,monitoring and symptomatic treatment. Close monitoring of renal function, electrolytes with repeat labs ordered for a.m. Continue assisting with all meals.Encourage oral intake/ supplements. Increase ambulation as tolerated. Final discharge medication regime to be evaluated by psychiatry. [facility] has accepted patient. Discharge planning in progress for tomorrow The impression and plan of care has been dictated as directed. : I performed a history and examination of this patient, discussed the same with the dictator. I agree with the dictator's note ,documented as a scribe. Any additional findings or plans will be noted.
[2017-12-30] MEDS: SERTRALINE 100 MG TAB PO SCH (20:49)
[2017-12-30] MEDS: SENNOSIDES 8.6 MG TAB PO SCH (20:49)
[2017-12-30] MEDS: MEMANTINE 5 MG TAB PO SCH (20:49)
[2017-12-31] MEDS: PANTOPRAZOLE 40 MG TABLET PO SCH (09:15)
[2017-12-31] MEDS: QUEtiapine 25 MG TAB PO SCH (09:16)
[2017-12-31] MEDS: DIVALPROEX 250 MG TABLET.DR PO SCH (09:16)
[2017-12-31] MEDS: CEFDINIR 300 MG CAP PO SCH (09:16)
[2017-12-31] MEDS: busPIRone HCl 10 MG TAB PO SCH (09:16)
[2017-12-31] MEDS: ASPIRIN 325 MG TAB PO SCH (09:16)
[2017-12-31] MEDS: METOPROLOL TARTRATE 25 MG TAB PO SCH (09:16)
[2017-12-31 09:30] VITALS: BP 133/65; PULSE 68; TEMP 96.8
[2017-12-31 09:45] LABS: Basophils # (A) 0.1 k/uL (0-0.2); Basophils % (A) 2 %; Eosinophils # (A) 0.3 k/uL (0-0.7); Eosinophils % (A) 5 %; HCT 35.5 % (34.0-46.0); HGB 11.5 gm/dL (11.4-16.0); Hypochromasia Slight; Lymphocytes # (A) 1.5 k/uL (1.0-4.8); Lymphocytes % (A) 32 %; MCH 29.2 pg (25.0-35.0); MCHC 32.5 g/dL (31.0-37.0); MCV 89.9 fL (80.0-100.0); Mean Platelet Volume 6.6; Monocytes # (A) 0.3 k/uL (0-1.0); Monocytes % (A) 6 %; Neutrophils # (A) 2.6 k/uL (1.3-7.7); Neutrophils % (A) 54 %; Platelet Count 455 k/uL (150-450); RBC 3.96 m/uL (3.80-5.40); RDW 14.2 % (11.5-15.5); WBC 4.8 k/uL (3.8-10.6)
[2017-12-31 10:01] LABS: Calcium 9.8 mg/dL (8.4-10.2); Potassium 4.5 mmol/L (3.5-5.1)
--- NOTE | 2017-12-31 10:56 | P.DS ---
Providers Date of admission: 12/13/17 08:47 Expected date of discharge: 12/31/17 Attending physician: Simone Bianchi Consults: 12/12/17 16:56 Consult Physician Routine Consulting Provider: Adam Colvin Consult Reason/Comments: Dementia Do you want consulting provider notified?: Already Contacted 12/12/17 22:46 Consult Physician Routine Consulting Provider: Arcenio Lara Consult Reason/Comments: confusion/agression/dementia Do you want consulting provider notified?: Yes, Notify in am 12/19/17 19:11 Consult Physician Urgent Consulting Provider: Arcenio Lara Consult Reason/Comments: new onset generalized severe weakness Do you want consulting provider notified?: Yes 12/21/17 05:51 Consult Physician Urgent Consulting Provider: Britt Rothman Consult Reason/Comments: New afib Do you want consulting provider notified?: Yes 12/23/17 17:30 Consult Physician Urgent Consulting Provider: Nate Jean-Baptiste Consult Reason/Comments: Refused HS medications 12/22; combative and agressive 12/23; reconsult Do you want consulting provider notified?: Yes Primary care physician: Omar Conn Hospital Course: Final Diagnoses: 1. Acute UTI with Enterobacter Clocae, with possible sepsis, present on admission, completed antibiotic therapy 2. Change in mental status, acute metabolic encephalopathy secondary to sepsis 3. Acute renal failure, possibly acute tubular necrosis secondary to dehydration, improving 4. Alzheimer's Dementia with behavioral changes 5. New onset paroxysmal atrial fibrillation with RVR, controlled. Hospital course:This is a 77-year-old female admitted with acute UTI with Enterobacter Clocae, possible sepsis, metabolic encephalopathy secondary sepsis , acute renal failure and multiple other medical issues. Maintained on IV antibiotics, gentle IV fluid hydration. Renal function improving. Evaluated by psychiatry with recommendations noted. PRN Geodon with significant clinical improvement. Soft restraints are off. Cooperative. Diet intake fair. Sitter at bedside. Evaluated by neurology, psychiatry and cardiology. Patient currently on aspirin ; Eliquis had been discontinued given patient required prn IM injections. Reevaluate outpatient with PCP and cardiology. Maintained on IV antibiotics. Significant Clinical Improvement. Creatinine currently 1.28 with repeat outpatient labs ordered.Cleared by all consults for discharge. Medication regimen reviewed by psychiatry yesterday with no further adjustments recommended at this time. Patient is being discharged to [facility] in a stable condition with guarded prognosis. EXAM: GENERAL: no acute distress, cooperative, conversing, alert and oriented 1 CARDIOVASCULAR: S1, S2 muffled. No murmur RESPIRATION: Breath sounds diminished in the bases. No rhonchi or crackles. no wheezing ABDOMEN: Soft, nontender . no masses palpable. Bowel sounds heard. NERVOUS SYSTEM: Diffuse weakness. The impression and plan of care has been dictated as directed. : I performed a history and examination of this patient, discussed the same with the dictator. I agree with the dictator's note ,documented as a scribe. Any additional findings or plans will be noted. Time taken: 35 minutes Patient Condition at Discharge: Stable Plan - Discharge Summary Discharge Rx Participant: No New Discharge Prescriptions: New Acetaminophen Tab [Tylenol] 500 mg PO Q6HR PRN #20 tab PRN Reason: Fever And/ Or Pain Divalproex [Depakote] 125 mg PO BID #30 tablet. Folic Acid 1 mg PO DAILY@1200 #30 tab Multivitamins, Thera [Multivitamin (formulary)] 1 each PO DAILY@1200 #30 tab Thiamine [Vitamin B-1] 100 mg PO DAILY@1200 #30 tab LORazepam [Ativan] 1 mg PO Q6H PRN #10 tab PRN Reason: Anxiety Metoprolol Tartrate [Lopressor] 25 mg PO BID #60 tablet Aspirin EC [Ecotrin Low Dose] 81 mg PO DAILY #30 tablet. busPIRone HCl [Buspar] 10 mg PO BID #60 tab Magnesium Oxide [Mag-Ox] 200 mg PO DAILY@1600 #60 tab Memantine [Namenda] 5 mg PO HS #30 tab QUEtiapine [SEROquel] 75 mg PO BID #60 tab Sertraline [Zoloft] 100 mg PO HS #30 tab Continue Cholecalciferol [Vitamin D3] 1,000 unit PO DAILY@1600 #30 tab Eucerin Cream 1 applic TOPICAL QID #1 tube Omeprazole 20 mg PO DAILY #30 capsule. Sennosideyonatan [Senna] 17.2 mg PO HS #60 tablet Discontinued Aspirin 81 mg PO DAILY@1600 busPIRone HCl [Buspar] 10 mg PO BID Magnesium Oxide [Mag-Ox] 200 mg PO DAILY@1600 Memantine [Namenda] 5 mg PO HS QUEtiapine FUMARATE [SEROquel XR] 150 mg PO HS Sertraline [Zoloft] 100 mg PO HS Discharge Medication List Acetaminophen Tab [Tylenol] 500 mg PO Q6HR PRN #20 tab 12/22/17 [Rx] Cholecalciferol [Vitamin D3] 1,000 unit PO DAILY@1600 #30 tab 12/22/17 [Rx] Divalproex [Depakote] 125 mg PO BID #30 tablet. 12/22/17 [Rx] Eucerin Cream 1 applic TOPICAL QID #1 tube 12/22/17 [Rx] Folic Acid 1 mg PO DAILY@1200 #30 tab 12/22/17 [Rx] LORazepam [Ativan] 1 mg PO Q6H PRN #10 tab 12/22/17 [Rx] Multivitamins, Thera [Multivitamin (formulary)] 1 each PO DAILY@1200 #30 tab 01/29 [Rx] Omeprazole 20 mg PO DAILY #30 capsule. 12/22/17 [Rx] Sennosides [Senna] 17.2 mg PO HS #60 tablet 12/22/17 [Rx] Thiamine [Vitamin B-1] 100 mg PO DAILY@1200 #30 tab 12/22/17 [Rx] Aspirin EC [Ecotrin Low Dose] 81 mg PO DAILY #30 tablet. 12/31/17 [Rx] Magnesium Oxide [Mag-Ox] 200 mg PO DAILY@1600 #60 tab 12/31/17 [Rx] Memantine [Namenda] 5 mg PO HS #30 tab 12/31/17 [Rx] Metoprolol Tartrate [Lopressor] 25 mg PO BID #60 tablet 12/31/17 [Rx] QUEtiapine [SEROquel] 75 mg PO BID #60 tab 12/31/17 [Rx] Sertraline [Zoloft] 100 mg PO HS #30 tab 12/31/17 [Rx] busPIRone HCl [Buspar] 10 mg PO BID #60 tab 12/31/17 [Rx] Follow up Appointment(s)/Referral(s): Dr. FABIENNE Psychiatry [Other] - 1 Week Arcenio Lara MD [STAFF PHYSICIAN] - 2 Weeks Omar Conn MD [Primary Care Provider] - 3 Days Adair Stanton MD [STAFF PHYSICIAN] - 2 Weeks Ambulatory/Diagnostic Orders: Complete Blood Count w/diff [LAB.AMB] Time Frame: 3 Days, Location: None Selected Magnesium [LAB.AMB] Time Frame: 3 Days, Location: None Selected Patient Instructions/Handouts: Fall Prevention for Older Adults (DC), Urinary Tract Infection in Older Adults (DC) Activity/Diet/Wound Care/Special Instructions: [facility] Regular diet. Assist with all feedings, snacks. Encourage oral intake Activity as tolerated, fall precautions. Change positions every 2 hours. DNR code status. CBC, BMP in 3 days Eliquis currently discontinued as patient requiring prn IM injections, reevaluate outpatient with PCP and cardiology
[2017-12-31] MEDS: FOLIC ACID 1 MG TAB PO SCH (12:08)
[2017-12-31] MEDS: THIAMINE 100 MG TAB PO SCH (12:09)
[2017-12-31] MEDS: MULTIVITAMINS, THERA 1 EACH TAB PO SCH (12:09)
== END 2017-12-31 13:18 | disposition home or self-care (01) | DRG 871 ==
LOC: SUPCPDRO 13:07 → EC 13:07 → 4MS4W 16:54 → EEVIPCON 12-13 08:47 → OBSVTOIN 12-13 08:47
PROVIDERS: ADMIT Internal Medicine; ATTEND Internal Medicine
DX: A41.59 Other Gram-negative sepsis (principal); G93.41 Metabolic encephalopathy; N17.0 Acute kidney failure with tubular necrosis; F02.81 Dementia in other diseases classified elsewhere, unspecified severity, with behavioral disturbance; N39.0 Urinary tract infection, site not specified; R47.01 Aphasia; E78.5 Hyperlipidemia, unspecified; F32.9 Major depressive disorder, single episode, unspecified; F41.9 Anxiety disorder, unspecified; G30.9 Alzheimer's disease, unspecified; I48.0 Paroxysmal atrial fibrillation; K21.9 Gastro-esophageal reflux disease without esophagitis; R29.810 Facial weakness; R65.20 Severe sepsis without septic shock; R26.9 Unspecified abnormalities of gait and mobility; R41.0 Disorientation, unspecified; E86.0 Dehydration; I08.0 Rheumatic disorders of both mitral and aortic valves; I44.0 Atrioventricular block, first degree; R32 Unspecified urinary incontinence; Z78.1 Physical restraint status; Z79.01 Long term (current) use of anticoagulants; Z79.82 Long term (current) use of aspirin; Z79.899 Other long term (current) drug therapy; Z88.8 Allergy status to other drugs, medicaments and biological substances; Z90.49 Acquired absence of other specified parts of digestive tract; Z90.710 Acquired absence of both cervix and uterus; Z87.891 Personal history of nicotine dependence; Z66 Do not resuscitate; Z98.42 Cataract extraction status, left eye; Z98.41 Cataract extraction status, right eye; Z96.1 Presence of intraocular lens; Z91.19 Patient's noncompliance with other medical treatment and regimen; Z80.1 Family history of malignant neoplasm of trachea, bronchus and lung
CPT/HCPCS: 36415; 70450; 80048; 80053; 80164; 80306; 80320; 81001; 82140; 83520; 83735; 84132; 84443; 84484; 85025; 85610; 87040; 87077; 87086; 87186; 93005; 93306; 95819; 96372; 96374; 99285